=== PATIENT | male | born 1930 | race Caucasian/White ===

== ENCOUNTER → 2016-10-05 | Outpatient (REF) | payer MEDICARE ==
[2016-10-05 19:13] LABS: TOTAL PROTEIN 7.3 GM/DL (6.4-8.2)
[2016-10-09 13:09] LABS: ALBUMIN 3.33 GM/DL (3.29-5.55); ALBUMIN % 45.6 % (55.8-66.1); GAMMA GLOBULIN % 19.6 % (11.1-18.8)
== END ==
LOC: M LAB REF 17:27
PROVIDERS: ATTEND Nurse Practitioner Adult Health
DX: D47.2 Monoclonal gammopathy (principal)

== ENCOUNTER → 2017-03-12 | Outpatient (REF) | payer MEDICARE | LOC: M LAB REF 11:16 | PROVIDERS: ATTEND Nurse Practitioner Adult Health | DX: D47.2 Monoclonal gammopathy (principal) ==

== ENCOUNTER → 2017-05-17 | Outpatient (REF) | payer MEDICARE ==
[2017-05-17 19:37] LABS: FERRITIN 43 NG/ML (26-388); PERCENT SATURATION 9.7 % (19.7-50.0); TOTAL IRON BINDING CAPACITY 321 UG/DL (250-450); TOTAL PROTEIN 7.8 GM/DL (6.4-8.2)
[2017-05-18 11:29] LABS: PRETREATED FOLATE FOR RBCFOL 13.4 NG/ML
[2017-05-22 12:36] LABS: ALBUMIN 3.49 GM/DL (3.29-5.55); ALBUMIN % 44.7 % (55.8-66.1); GAMMA GLOBULIN % 21.2 % (11.1-18.8)
== END ==
LOC: M LAB REF 17:21
PROVIDERS: ATTEND Nurse Practitioner Adult Health
DX: D47.2 Monoclonal gammopathy (principal); N18.9 Chronic kidney disease, unspecified; D63.1 Anemia in chronic kidney disease

== ENCOUNTER 2017-07-19 06:55 | Day surgery (SDC) | payer MEDICARE ==
[2017-07-19] MEDS: NS 1,000 ML IV (07:30)
[2017-07-19] MEDS ORDERED: PROPOFOL 200 MG/20 ML VIAL As Ordered (07:44)
[2017-07-19] MEDS ORDERED: LIDOCAINE 2% INJ 100 MG/5 ML SDV (FOR ANES.) As Ordered (07:45)
== END 2017-07-19 08:53 | disposition home or self-care (01) ==
LOC: M OPP 06:55
DX: K22.2 Esophageal obstruction (principal); K44.9 Diaphragmatic hernia without obstruction or gangrene; K25.9 Gastric ulcer, unspecified as acute or chronic, without hemorrhage or perforation; I48.91 Unspecified atrial fibrillation; I10 Essential (primary) hypertension; E78.5 Hyperlipidemia, unspecified; K21.9 Gastro-esophageal reflux disease without esophagitis; D64.9 Anemia, unspecified; M19.90 Unspecified osteoarthritis, unspecified site; M54.9 Dorsalgia, unspecified; R06.02 Shortness of breath; M81.0 Age-related osteoporosis without current pathological fracture; Z79.82 Long term (current) use of aspirin; Z79.899 Other long term (current) drug therapy; Z96.652 Presence of left artificial knee joint; Z95.0 Presence of cardiac pacemaker; Z87.891 Personal history of nicotine dependence
CPT/HCPCS: 43249

== ENCOUNTER → 2017-10-23 | Outpatient (CLI) | payer MEDICARE ==
[2017-10-26 00:07] LABS: QUANTIFERON GOLD TB Negative (Negative); TB Test (QFT) Antigen 0.03 IU/mL (.); TB Test (QFT) Antigen Minus Ni <0.01 IU/mL (.); TB Test (QFT) Mitogen >10.00 IU/mL (.); TB Test (QFT) Nil 0.04 IU/mL (.)
[2017-10-27 00:07] LABS: ANCA-ATYPICAL <1:20 titer (Neg:<1:20); ASPERGILLUS FLAVUS ABY Negative (Neg:<1:1); ASPERGILLUS FUMIGATUS ABY Negative (Neg:<1:1); ASPERGILLUS NIGER ABY Negative (Neg:<1:1); CYTOPLASMIC NEUTROP AB ANCA-C <1:20 titer (Neg:<1:20); PERINUCLEAR AB ANCA-P <1:20 titer (Neg:<1:20)
== END ==
LOC: M SMT 09:58
DX: R91.8 Other nonspecific abnormal finding of lung field (principal)
CPT/HCPCS: 86606

== ENCOUNTER 2017-11-18 07:39 | Inpatient (IN) | payer MEDICARE ==
[2017-11-18 08:18] LABS: BASO # 0.1 10^3/uL (0.0-0.2); BASO % 0.5 % (0.0-1.0); EOS # 0.1 10^3/uL (0.0-0.50); EOS % 1.1 % (0.0-3.0); HEMATOCRIT 23.4 % (42.0-52.0); HEMOGLOBIN 7.4 g/dl (13.5-17.5); IMMATURE GRANULOCYTE % 0.5 % (0-3.0); LYMPH # 1.2 10^3/uL (1.5-4.5); LYMPH % 10.6 % (24.0-44.0); MEAN CORPUSCULAR HEMOGLOBIN 27.4 pg (27.0-33.0); MEAN CORPUSCULAR HGB CONC 31.6 g/dl (32.0-36.5); MEAN CORPUSCULAR VOLUME 86.7 fl (80.0-96.0); MONO # 1.1 10^3/uL (0.0-0.8); MONO % 10.2 % (0.0-5.0); NEUTROPHILS # 8.5 10^3/uL (1.8-7.7); NEUTROPHILS % 77.1 % (36.0-66.0); PLATELET COUNT, AUTOMATED 293 10^3/uL (150-450); RED CELL DISTRIBUTION WIDTH 16.4 % (11.5-14.5)
[2017-11-18 08:29] LABS: INR 3.61; PROTHROMBIN TIME 37.8 SECONDS (12.4-14.5)
[2017-11-18 08:30] LABS: PARTIAL THROMBOPLASTIN TIME 48.4 SECONDS (26.8-37.9)
[2017-11-18] MEDS: NS 1,000 ML IV ×2 (08:31→18:05)
[2017-11-18 08:39] LABS: ALBUMIN 2.5 GM/DL (3.2-5.2); ALBUMIN/GLOBULIN RATIO 0.58 (1.00-1.93); ALKALINE PHOSPHATASE 76 U/L (45-117); ALT/SGPT 14 U/L (12-78); ANION GAP 8 MEQ/L (8-16); AST/SGOT 18 U/L (7-37); BILIRUBIN,DIRECT < 0.1 MG/DL (0.0-0.2); BILIRUBIN,TOTAL 0.3 MG/DL (0.2-1.0); BLOOD UREA NITROGEN 102 MG/DL (7-18); CALCIUM LEVEL 8.2 MG/DL (8.8-10.2); CARBON DIOXIDE LEVEL 23 MEQ/L (21-32); CHLORIDE LEVEL 111 MEQ/L (98-107); CK-MB VALUE MASS 2.7 NG/ML (<3.6); CPK CREATINE PHOSPHOKINASE 55 U/L (39-308); CREATININE FOR GFR 1.64 MG/DL (0.70-1.30); GLOMERULAR FILTRATION RATE 42.6 (>35); GLUCOSE, FASTING 99 MG/DL (70-100); LIPASE 238 U/L (73-393); SODIUM LEVEL 142 MEQ/L (136-145); TOTAL PROTEIN 6.8 GM/DL (6.4-8.2); TROPONIN I < 0.02 NG/ML (< 0.10)
[2017-11-18 08:42] LABS: POTASSIUM SERUM 5.7 MEQ/L (3.5-5.1)
[2017-11-18] MEDS: PANTOPRAZOLE 40MG INJ (PROTONIX) (C9113) IV (08:42)
[2017-11-18 09:35] LABS: RETIC HEMOGLOBIN EQUIVALENT 28.6 pg (24-36); RETICULOCYTE # 56.2 10^9/L (17-77); RETICULOCYTE % 2.2 % (0.5-1.5)
[2017-11-18 09:43] LABS: SLIDE REVIEW Report; SOURCE PERIPHERAL SMEAR
[2017-11-18 09:44] LABS: REASON FOR REVIEW ANEMIA / RBC MORPH
[2017-11-18 09:46] LABS: IRON (FE) 35 UG/DL (65-175); PERCENT SATURATION 13.6 % (19.7-50.0); TOTAL IRON BINDING CAPACITY 257 UG/DL (250-450)
[2017-11-18 09:46] LABS: FERRITIN 64 NG/ML (26-388)
[2017-11-18] MEDS: PANTOPRAZOLE SODIUM 40 MG in D5W 50 ML IV ×2 (10:19→14:30)
[2017-11-18 12:15] LABS: TYPE AND SCREEN 1
[2017-11-18] MEDS: SUCRALFATE SUSP 1GM/10ML UD PO ×3 (12:27→23:08)
[2017-11-18] MEDS ORDERED: FUROSEMIDE 20 MG/2 ML VIAL (J1940) IV ×2 (14:00→17:00)
[2017-11-18] MEDS ORDERED: GLUCAGON FOR INJ 1 MG VIAL (J1610) SC (15:00)
[2017-11-18] MEDS ORDERED: DEXTROSE 50% 50 ML SYRINGE IV (15:00)
[2017-11-18] MEDS ORDERED: GLUCOSE 4 GM CHEW TABLET PO (15:00)
[2017-11-18 15:04] LABS: IMMEDIATE SPIN CROSSMATCH 1 2
[2017-11-18 15:16] LABS: HEMATOCRIT 20.2 % (42.0-52.0)
[2017-11-18 15:19] LABS: HEMOGLOBIN 6.5 g/dl (13.5-17.5)
[2017-11-18] MEDS ORDERED: PHYTONADIONE 10MG/ML INJECTION (J3430) SC (16:00)
[2017-11-18] MEDS: SOD POLYSTYRENE SULFONATE SUSP 15 GM/60 ML UD PO (16:00)
[2017-11-18] MEDS: PHYTONADIONE INJection 10 MG in NS 50 ML IV (16:34)
[2017-11-18] MEDS: OCTREOTIDE ACETATE 100 MCG/ML VIAL (J2354) IV ×2 (17:14→23:08)
[2017-11-18] MEDS: CALCIUM GLUCONATE 1,000 MG in D5W MINI-BAG PLUS 100 ML IV (17:14)
[2017-11-18 18:54] LABS: BEDSIDE GLUCOSE 160 MG/DL (83-110)
[2017-11-18 20:47] LABS: INR 1.74; PROTHROMBIN TIME 20.9 SECONDS (12.4-14.5)
[2017-11-18 21:06] LABS: ANION GAP 10 MEQ/L (8-16); BLOOD UREA NITROGEN 87 MG/DL (7-18); CALCIUM LEVEL 8.5 MG/DL (8.8-10.2); CARBON DIOXIDE LEVEL 20 MEQ/L (21-32); CHLORIDE LEVEL 116 MEQ/L (98-107); CREATININE FOR GFR 1.43 MG/DL (0.70-1.30); GLOMERULAR FILTRATION RATE 49.9 (>35); GLUCOSE, FASTING 133 MG/DL (70-100); POTASSIUM SERUM 5.1 MEQ/L (3.5-5.1); SODIUM LEVEL 146 MEQ/L (136-145)
[2017-11-18 22:57] LABS: IMMEDIATE SPIN CROSSMATCH 1 2
[2017-11-18 23:29] LABS: BEDSIDE GLUCOSE 144 MG/DL (83-110)
[2017-11-19] MEDS: PANTOPRAZOLE SODIUM 40 MG in D5W 50 ML IV ×5 (00:29→19:54)
[2017-11-19 01:37] LABS: HEMATOCRIT 22.1 % (42.0-52.0); HEMOGLOBIN 7.3 g/dl (13.5-17.5)
[2017-11-19 01:48] LABS: INR 1.56; PROTHROMBIN TIME 19.1 SECONDS (12.4-14.5)
[2017-11-19 01:49] LABS: PARTIAL THROMBOPLASTIN TIME 33.9 SECONDS (26.8-37.9)
[2017-11-19] MEDS: NS 1,000 ML IV (03:49)
[2017-11-19] MEDS: OCTREOTIDE ACETATE 100 MCG/ML VIAL (J2354) IV ×4 (05:15→22:58)
[2017-11-19] MEDS: SUCRALFATE SUSP 1GM/10ML UD PO ×3 (05:15→17:50)
[2017-11-19] MEDS ORDERED: PHYTONADIONE 10MG/ML INJECTION (J3430) As Ordered (06:18)
[2017-11-19] MEDS: PHYTONADIONE 10MG/ML INJECTION (J3430) SC (06:31)
[2017-11-19 06:44] LABS: HEMATOCRIT 22.2 % (42.0-52.0); HEMOGLOBIN 7.3 g/dl (13.5-17.5); MEAN CORPUSCULAR HEMOGLOBIN 28.4 pg (27.0-33.0); MEAN CORPUSCULAR HGB CONC 32.9 g/dl (32.0-36.5); MEAN CORPUSCULAR VOLUME 86.4 fl (80.0-96.0); PLATELET COUNT, AUTOMATED 177 10^3/uL (150-450); RED BLOOD COUNT 2.57 10^6/uL (4.30-6.10); WHITE BLOOD COUNT 11.4 10^3/uL (4.0-10.0)
[2017-11-19 06:49] LABS: INR 1.43; PROTHROMBIN TIME 17.8 SECONDS (12.4-14.5)
[2017-11-19 07:04] LABS: ANION GAP 9 MEQ/L (8-16); BLOOD UREA NITROGEN 69 MG/DL (7-18); CALCIUM LEVEL 7.6 MG/DL (8.8-10.2); CARBON DIOXIDE LEVEL 19 MEQ/L (21-32); CHLORIDE LEVEL 120 MEQ/L (98-107); CREATININE FOR GFR 1.35 MG/DL (0.70-1.30); GLOMERULAR FILTRATION RATE 53.3 (>35); GLUCOSE, FASTING 142 MG/DL (70-100); POTASSIUM SERUM 4.8 MEQ/L (3.5-5.1); SODIUM LEVEL 148 MEQ/L (136-145)
[2017-11-19] MEDS: NS 0.45% 1,000 ML IV ×2 (11:00→11:57)
[2017-11-19 12:32] LABS: HEMATOCRIT 25.4 % (42.0-52.0); HEMOGLOBIN 8.3 g/dl (13.5-17.5)
[2017-11-19 13:36] LABS: BEDSIDE GLUCOSE 135 MG/DL (83-110)
[2017-11-19 16:53] LABS: IMMEDIATE SPIN CROSSMATCH 1 2
[2017-11-19] MEDS: CARVedilol 12.5 MG TAB PO (17:51)
[2017-11-19] MEDS: LOSARTAN 50 MG TAB PO (17:51)
[2017-11-19 17:52] LABS: BEDSIDE GLUCOSE 134 MG/DL (83-110)
[2017-11-19] MEDS: D5W/0.45% SODIUM CHLORIDE 1,000 ML IV (17:52)
[2017-11-19] MEDS: SODIUM BICARBONATE 8.4% INJ 50 ML SYRINGE IV (18:20)
[2017-11-19 19:38] LABS: HEMATOCRIT 28.6 % (42.0-52.0); HEMOGLOBIN 9.4 g/dl (13.5-17.5)
[2017-11-19 19:39] LABS: IONIZED CALCIUM 4.4 MG/DL (4.5-5.3)
[2017-11-19 20:02] LABS: ANION GAP 5 MEQ/L (8-16); BLOOD UREA NITROGEN 54 MG/DL (7-18); CALCIUM LEVEL 7.9 MG/DL (8.8-10.2); CARBON DIOXIDE LEVEL 24 MEQ/L (21-32); CHLORIDE LEVEL 118 MEQ/L (98-107); CK-MB VALUE MASS 4.5 NG/ML (<3.6); CPK CREATINE PHOSPHOKINASE 80 U/L (39-308); GLOMERULAR FILTRATION RATE 55.7 (>35); GLUCOSE, FASTING 169 MG/DL (70-100); MB/CK RELATIVE INDEX 5.62 (< OR =4); NT-PRO BNP 8670 PG/ML (<450); POTASSIUM SERUM 4.5 MEQ/L (3.5-5.1); SODIUM LEVEL 147 MEQ/L (136-145); TROPONIN I 0.02 NG/ML (< 0.10)
[2017-11-19 20:11] LABS: INR 1.26
[2017-11-19] MEDS ORDERED: LOSARTAN 50 MG TAB PO (21:00)
[2017-11-19] MEDS ORDERED: CARVedilol 12.5 MG TAB PO (21:00)
[2017-11-20 00:06] LABS: IONIZED CALCIUM 4.4 MG/DL (4.5-5.3)
[2017-11-20 00:15] LABS: BEDSIDE GLUCOSE 184 MG/DL (83-110)
[2017-11-20 00:16] LABS: HEMATOCRIT 27.6 % (42.0-52.0); HEMOGLOBIN 9.1 g/dl (13.5-17.5)
[2017-11-20 00:34] LABS: ANION GAP 7 MEQ/L (8-16); BLOOD UREA NITROGEN 49 MG/DL (7-18); CALCIUM LEVEL 7.5 MG/DL (8.8-10.2); CARBON DIOXIDE LEVEL 21 MEQ/L (21-32); CHLORIDE LEVEL 119 MEQ/L (98-107); CREATININE FOR GFR 1.22 MG/DL (0.70-1.30); GLUCOSE, FASTING 173 MG/DL (70-100); POTASSIUM SERUM 4.1 MEQ/L (3.5-5.1); SODIUM LEVEL 147 MEQ/L (136-145)
[2017-11-20] MEDS: PANTOPRAZOLE SODIUM 40 MG in D5W 50 ML IV ×5 (01:30→20:35)
[2017-11-20] MEDS: D5W/0.45% SODIUM CHLORIDE 1,000 ML IV (03:49)
[2017-11-20 05:32] LABS: HEMATOCRIT 27.6 % (42.0-52.0); MEAN CORPUSCULAR HEMOGLOBIN 29.2 pg (27.0-33.0); MEAN CORPUSCULAR HGB CONC 32.6 g/dl (32.0-36.5); MEAN CORPUSCULAR VOLUME 89.6 fl (80.0-96.0); PLATELET COUNT, AUTOMATED 170 10^3/uL (150-450); RED BLOOD COUNT 3.08 10^6/uL (4.30-6.10); RED CELL DISTRIBUTION WIDTH 16.1 % (11.5-14.5); WHITE BLOOD COUNT 10.7 10^3/uL (4.0-10.0)
[2017-11-20] MEDS: OCTREOTIDE ACETATE 100 MCG/ML VIAL (J2354) IV ×4 (05:48→23:31)
[2017-11-20] MEDS: SUCRALFATE SUSP 1GM/10ML UD PO ×5 (05:48→23:31)
[2017-11-20 05:51] LABS: ANION GAP 6 MEQ/L (8-16); BLOOD UREA NITROGEN 42 MG/DL (7-18); CALCIUM LEVEL 7.4 MG/DL (8.8-10.2); CARBON DIOXIDE LEVEL 22 MEQ/L (21-32); CHLORIDE LEVEL 119 MEQ/L (98-107); CREATININE FOR GFR 1.18 MG/DL (0.70-1.30); GLOMERULAR FILTRATION RATE > 60.0 (>35); GLUCOSE, FASTING 160 MG/DL (70-100); POTASSIUM SERUM 3.9 MEQ/L (3.5-5.1); SODIUM LEVEL 147 MEQ/L (136-145)
[2017-11-20 06:01] LABS: BEDSIDE GLUCOSE 163 MG/DL (83-110)
[2017-11-20] MEDS: LOSARTAN 50 MG TAB PO ×2 (09:00→20:11)
[2017-11-20] MEDS: CARVedilol 12.5 MG TAB PO ×2 (09:00→20:11)
[2017-11-20 12:58] LABS: BEDSIDE GLUCOSE 140 MG/DL (83-110)
[2017-11-20] MEDS ORDERED: SLF 3 ML SYR IV (17:45)
[2017-11-20 17:59] LABS: BEDSIDE GLUCOSE 126 MG/DL (83-110)
[2017-11-20 20:21] LABS: HEMATOCRIT 28.9 % (42.0-52.0); HEMOGLOBIN 9.2 g/dl (13.5-17.5); MEAN CORPUSCULAR HEMOGLOBIN 29.3 pg (27.0-33.0); MEAN CORPUSCULAR HGB CONC 31.8 g/dl (32.0-36.5); PLATELET COUNT, AUTOMATED 176 10^3/uL (150-450); RED BLOOD COUNT 3.14 10^6/uL (4.30-6.10); RED CELL DISTRIBUTION WIDTH 17.1 % (11.5-14.5); WHITE BLOOD COUNT 13.1 10^3/uL (4.0-10.0)
[2017-11-20] MEDS: SLF 3 ML SYR IV (23:32)
[2017-11-21] MEDS: PANTOPRAZOLE SODIUM 40 MG in D5W 50 ML IV ×5 (01:45→22:07)
[2017-11-21] MEDS: SLF 3 ML SYR IV ×3 (05:04→22:06)
[2017-11-21] MEDS: OCTREOTIDE ACETATE 100 MCG/ML VIAL (J2354) IV ×4 (05:04→23:27)
[2017-11-21] MEDS: SUCRALFATE SUSP 1GM/10ML UD PO ×4 (05:04→23:27)
[2017-11-21 06:17] LABS: HEMATOCRIT 27.5 % (42.0-52.0); HEMOGLOBIN 8.8 g/dl (13.5-17.5); MEAN CORPUSCULAR HEMOGLOBIN 29.4 pg (27.0-33.0); PLATELET COUNT, AUTOMATED 174 10^3/uL (150-450); RED BLOOD COUNT 2.99 10^6/uL (4.30-6.10); RED CELL DISTRIBUTION WIDTH 16.8 % (11.5-14.5); WHITE BLOOD COUNT 13.4 10^3/uL (4.0-10.0)
[2017-11-21 06:31] LABS: ANION GAP 7 MEQ/L (8-16); BLOOD UREA NITROGEN 30 MG/DL (7-18); CALCIUM LEVEL 7.6 MG/DL (8.8-10.2); CARBON DIOXIDE LEVEL 22 MEQ/L (21-32); CHLORIDE LEVEL 118 MEQ/L (98-107); CREATININE FOR GFR 1.18 MG/DL (0.70-1.30); GLOMERULAR FILTRATION RATE > 60.0 (>35); GLUCOSE, FASTING 132 MG/DL (70-100); SODIUM LEVEL 147 MEQ/L (136-145)
[2017-11-21] MEDS: LOSARTAN 50 MG TAB PO ×2 (08:44→22:06)
[2017-11-21] MEDS: CARVedilol 12.5 MG TAB PO ×2 (08:44→22:05)
[2017-11-21 11:57] LABS: BEDSIDE GLUCOSE 103 MG/DL (83-110)
[2017-11-21] MEDS: ACETAMINOPHEN 500 MG TAB PO (17:02)
[2017-11-21 18:25] LABS: BEDSIDE GLUCOSE 128 MG/DL (83-110)
[2017-11-22 01:03] LABS: BEDSIDE GLUCOSE 122 MG/DL (83-110)
[2017-11-22] MEDS: PANTOPRAZOLE SODIUM 40 MG in D5W 50 ML IV ×3 (02:58→11:31)
[2017-11-22 06:12] LABS: HEMOGLOBIN 8.6 g/dl (13.5-17.5); MEAN CORPUSCULAR HEMOGLOBIN 29.5 pg (27.0-33.0); MEAN CORPUSCULAR HGB CONC 31.9 g/dl (32.0-36.5); MEAN CORPUSCULAR VOLUME 92.5 fl (80.0-96.0); PLATELET COUNT, AUTOMATED 164 10^3/uL (150-450); RED BLOOD COUNT 2.92 10^6/uL (4.30-6.10); RED CELL DISTRIBUTION WIDTH 17.5 % (11.5-14.5); WHITE BLOOD COUNT 9.6 10^3/uL (4.0-10.0)
[2017-11-22] MEDS: OCTREOTIDE ACETATE 100 MCG/ML VIAL (J2354) IV ×4 (06:17→22:41)
[2017-11-22] MEDS: SUCRALFATE SUSP 1GM/10ML UD PO ×3 (06:17→17:53)
[2017-11-22] MEDS: SLF 3 ML SYR IV ×3 (06:17→22:41)
[2017-11-22 06:40] LABS: ANION GAP 9 MEQ/L (8-16); BLOOD UREA NITROGEN 30 MG/DL (7-18); CALCIUM LEVEL 7.3 MG/DL (8.8-10.2); CARBON DIOXIDE LEVEL 20 MEQ/L (21-32); CHLORIDE LEVEL 116 MEQ/L (98-107); CREATININE FOR GFR 1.24 MG/DL (0.70-1.30); GLOMERULAR FILTRATION RATE 58.8 (>35); GLUCOSE, FASTING 120 MG/DL (70-100); POTASSIUM SERUM 3.8 MEQ/L (3.5-5.1); SODIUM LEVEL 145 MEQ/L (136-145)
[2017-11-22] MEDS: CARVedilol 12.5 MG TAB PO ×2 (09:00→22:41)
[2017-11-22] MEDS: LOSARTAN 50 MG TAB PO ×2 (09:29→22:40)
[2017-11-22 11:31] LABS: BEDSIDE GLUCOSE 106 MG/DL (83-110)
[2017-11-22] MEDS: hydrALAZINE INJ 20 MG/ML VIAL IV (13:21)
[2017-11-22] MEDS ORDERED: PROPOFOL 200 MG/20 ML VIAL As Ordered ×2 (14:58)
[2017-11-22 17:59] LABS: BEDSIDE GLUCOSE 132 MG/DL (83-110)
[2017-11-22] MEDS: PANTOPRAZOLE 40MG TAB (PROTONIX) PO (22:40)
[2017-11-23] MEDS: SUCRALFATE SUSP 1GM/10ML UD PO ×4 (00:13→18:17)
[2017-11-23] MEDS: ACETAMINOPHEN 500 MG TAB PO (03:26)
[2017-11-23] MEDS: OCTREOTIDE ACETATE 100 MCG/ML VIAL (J2354) IV ×2 (05:58→11:00)
[2017-11-23] MEDS: SLF 3 ML SYR IV ×3 (05:58→20:21)
[2017-11-23 08:11] LABS: HEMOGLOBIN 8.8 g/dl (13.5-17.5); MEAN CORPUSCULAR HEMOGLOBIN 29.6 pg (27.0-33.0); MEAN CORPUSCULAR HGB CONC 31.4 g/dl (32.0-36.5); MEAN CORPUSCULAR VOLUME 94.3 fl (80.0-96.0); PLATELET COUNT, AUTOMATED 191 10^3/uL (150-450); RED BLOOD COUNT 2.97 10^6/uL (4.30-6.10); RED CELL DISTRIBUTION WIDTH 17.8 % (11.5-14.5); WHITE BLOOD COUNT 14.2 10^3/uL (4.0-10.0)
[2017-11-23] MEDS: CARVedilol 12.5 MG TAB PO ×2 (08:51→20:20)
[2017-11-23] MEDS: FUROSEMIDE 40 MG/4 ML VIAL (J1940) IV (08:51)
[2017-11-23] MEDS: PANTOPRAZOLE 40MG TAB (PROTONIX) PO ×2 (08:52→20:20)
[2017-11-23] MEDS: LOSARTAN 50 MG TAB PO ×2 (08:52→20:20)
[2017-11-23 09:14] LABS: ANION GAP 11 MEQ/L (8-16); BLOOD UREA NITROGEN 36 MG/DL (7-18); CALCIUM LEVEL 7.4 MG/DL (8.8-10.2); CARBON DIOXIDE LEVEL 20 MEQ/L (21-32); CHLORIDE LEVEL 115 MEQ/L (98-107); CREATININE FOR GFR 1.38 MG/DL (0.70-1.30); GLUCOSE, FASTING 136 MG/DL (70-100); SODIUM LEVEL 146 MEQ/L (136-145)
[2017-11-23 11:28] LABS: IMMEDIATE SPIN CROSSMATCH 1 1
[2017-11-23] MEDS: FUROSEMIDE 100 MG/10 ML VIAL (J1940) IV (16:37)
[2017-11-24] MEDS: SUCRALFATE SUSP 1GM/10ML UD PO ×3 (00:06→11:59)
[2017-11-24 05:31] LABS: HEMATOCRIT 30.8 % (42.0-52.0); HEMOGLOBIN 10.1 g/dl (13.5-17.5); MEAN CORPUSCULAR HEMOGLOBIN 29.6 pg (27.0-33.0); MEAN CORPUSCULAR HGB CONC 32.8 g/dl (32.0-36.5); MEAN CORPUSCULAR VOLUME 90.3 fl (80.0-96.0); PLATELET COUNT, AUTOMATED 218 10^3/uL (150-450); RED BLOOD COUNT 3.41 10^6/uL (4.30-6.10); RED CELL DISTRIBUTION WIDTH 17.2 % (11.5-14.5); WHITE BLOOD COUNT 12.4 10^3/uL (4.0-10.0)
[2017-11-24] MEDS: SLF 3 ML SYR IV (05:45)
[2017-11-24] MEDS: PANTOPRAZOLE 40MG TAB (PROTONIX) PO (08:05)
[2017-11-24] MEDS: FUROSEMIDE 100 MG/10 ML VIAL (J1940) IV (08:06)
[2017-11-24] MEDS: CARVedilol 12.5 MG TAB PO (09:00)
[2017-11-24] MEDS: LOSARTAN 50 MG TAB PO (09:00)
[2017-11-24 09:11] LABS: BASO % 0.3 % (0.0-1.0); EOS # 0.2 10^3/uL (0.0-0.50); EOS % 1.5 % (0.0-3.0); HEMATOCRIT 30.8 % (42.0-52.0); HEMOGLOBIN 10.1 g/dl (13.5-17.5); IMMATURE GRANULOCYTE % 0.6 % (0-3.0); LYMPH # 0.9 10^3/uL (1.5-4.5); MEAN CORPUSCULAR HGB CONC 32.8 g/dl (32.0-36.5); MEAN CORPUSCULAR VOLUME 91.4 fl (80.0-96.0); MONO # 1.3 10^3/uL (0.0-0.8); MONO % 10.8 % (0.0-5.0); NEUTROPHILS # 9.9 10^3/uL (1.8-7.7); NEUTROPHILS % 79.8 % (36.0-66.0); PLATELET COUNT, AUTOMATED 226 10^3/uL (150-450); RED BLOOD COUNT 3.37 10^6/uL (4.30-6.10); RED CELL DISTRIBUTION WIDTH 17.2 % (11.5-14.5); WHITE BLOOD COUNT 12.4 10^3/uL (4.0-10.0)
[2017-11-24 09:28] LABS: ANION GAP 9 MEQ/L (8-16); BLOOD UREA NITROGEN 40 MG/DL (7-18); CALCIUM LEVEL 7.3 MG/DL (8.8-10.2); CARBON DIOXIDE LEVEL 21 MEQ/L (21-32); CHLORIDE LEVEL 111 MEQ/L (98-107); CREATININE FOR GFR 1.45 MG/DL (0.70-1.30); GLOMERULAR FILTRATION RATE 49.1 (>35); GLUCOSE, FASTING 145 MG/DL (70-100); POTASSIUM SERUM 3.6 MEQ/L (3.5-5.1); SODIUM LEVEL 141 MEQ/L (136-145)
== END 2017-11-24 15:40 | disposition home health service (06) | DRG 813 ==
LOC: M PCU 11-21 01:53 → M MS5PR 11-22 00:04 → M ED 07:39 → M ED INP 09:15 → M ICU 18:07
PROC: 0DJ08ZZ Inspection of Upper Intestinal Tract, Via Natural or Artificial Opening Endoscopic (ICD-10-PCS; principal; 2017-11-22 14:30)
PROC: 30233N1 Transfusion of Nonautologous Red Blood Cells into Peripheral Vein, Percutaneous Approach (ICD-10-PCS; 2017-11-22 14:48)
PROC: 30233K1 Transfusion of Nonautologous Frozen Plasma into Peripheral Vein, Percutaneous Approach (ICD-10-PCS; 2017-11-22 14:48)
DX: D68.32 Hemorrhagic disorder due to extrinsic circulating anticoagulants (principal); J96.01 Acute respiratory failure with hypoxia; D62 Acute posthemorrhagic anemia; N17.9 Acute kidney failure, unspecified; K92.2 Gastrointestinal hemorrhage, unspecified; K25.9 Gastric ulcer, unspecified as acute or chronic, without hemorrhage or perforation; E87.5 Hyperkalemia; I95.1 Orthostatic hypotension; K29.70 Gastritis, unspecified, without bleeding; I48.91 Unspecified atrial fibrillation; F17.290 Nicotine dependence, other tobacco product, uncomplicated; E78.5 Hyperlipidemia, unspecified; I25.10 Atherosclerotic heart disease of native coronary artery without angina pectoris; Z96.653 Presence of artificial knee joint, bilateral; Z98.49 Cataract extraction status, unspecified eye; Z95.0 Presence of cardiac pacemaker; Z79.82 Long term (current) use of aspirin; Z79.01 Long term (current) use of anticoagulants; Z79.899 Other long term (current) drug therapy; Z88.8 Allergy status to other drugs, medicaments and biological substances

== ENCOUNTER → 2018-01-01 | Outpatient (REF) | payer MEDICARE ==
[2018-01-01 20:15] LABS: IMMUNOGLOBULIN G 1460 MG/DL (681-1648); IMMUNOGLOBULIN M 117 MG/DL (40-230); TOTAL PROTEIN 7.4 GM/DL (6.4-8.2)
[2018-01-03 11:55] LABS: ALBUMIN 3.23 GM/DL (3.29-5.55); ALBUMIN % 43.7 % (55.8-66.1); ALPHA-1-GLOBULIN % 6.2 % (2.9-4.9); ALPHA-1-GLOBULINS 0.46 GM/DL (0.17-0.41); ALPHA-2-GLOBULINS 0.97 GM/DL (0.42-0.99); ALPHA-2-GLOBULINS % 13.1 % (7.1-11.8); BETA-1-GLOBULINS 0.51 GM/DL (0.28-0.60); BETA-1-GLOBULINS % 6.9 % (4.7-7.2); BETA-2-GLOBULINS 0.64 GM/DL (0.19-0.55); BETA-2-GLOBULINS % 8.7 % (3.2-6.5); GAMMA GLOBULIN % 21.4 % (11.1-18.8); GAMMA GLOBULINS 1.58 GM/DL (0.65-1.58)
[2018-01-03 13:05] LABS: IMMUNOTYPING SERUM IGA ABNORMAL (NORMAL); IMMUNOTYPING SERUM IGG ABNORMAL (NORMAL); IMMUNOTYPING SERUM KAPPA ABNORMAL (NORMAL)
== END ==
LOC: M LAB REF 17:21
DX: D47.2 Monoclonal gammopathy (principal)
CPT/HCPCS: 84165

== ENCOUNTER → 2018-03-20 | Outpatient (REF) | payer MEDICARE ==
[2018-03-20 14:22] LABS: TOTAL 25(OH) VITAMIN D 41.9 NG/ML (30.0-100.0)
[2018-03-20 14:22] LABS: CALCIUM LEVEL 9.1 MG/DL (8.8-10.2)
== END ==
LOC: M LABDRAW1 11:57
DX: M81.0 Age-related osteoporosis without current pathological fracture (principal); E55.9 Vitamin D deficiency, unspecified
CPT/HCPCS: 82310

== ENCOUNTER → 2018-03-31 | Outpatient (REF) | payer MEDICARE ==
[2018-03-31 22:49] LABS: INFLUENZA A AMPLIFICATION NEGATIVE (NEGATIVE); INFLUENZA B AMPLIFICATION NEGATIVE (NEGATIVE)
== END ==
LOC: M LAB REF 11:22
DX: J11.1 Influenza due to unidentified influenza virus with other respiratory manifestations (principal)
CPT/HCPCS: 87502

== ENCOUNTER → 2018-04-03 | Outpatient (REF) | payer MEDICARE ==
[2018-04-03 13:44] LABS: INR 4.63; PROTHROMBIN TIME 44.9 SECONDS (12.1-14.4)
== END ==
LOC: M LAB REF 12:58
DX: I48.0 Paroxysmal atrial fibrillation (principal); I48.2 Chronic atrial fibrillation
CPT/HCPCS: 85610

== ENCOUNTER → 2018-04-05 | Outpatient (REF) | payer MEDICARE ==
[2018-04-05 20:07] LABS: BANDS 8 % (< 11); LYMPHOCYTES 9 % (16-52); MONOCYTES 6 % (0-8); NEUTROPHILS 77 % (35-75)
[2018-04-05 20:10] LABS: PLATELET ESTIMATE NORMAL (NORMAL)
== END ==
LOC: M LAB REF 17:24
DX: D72.89 Other specified disorders of white blood cells (principal)
CPT/HCPCS: 85007

== ENCOUNTER → 2018-04-30 | Outpatient (REF) | payer MEDICARE ==
[2018-04-30 18:31] LABS: ATYPICAL LYMPH 1 % (0-5); EOSINOPHILS 8 % (0-5); LYMPHOCYTES 7 % (16-52); MONOCYTES 9 % (0-8); NEUTROPHILS 75 % (35-75)
[2018-04-30 18:33] LABS: PLATELET CLUMPS MODERATE AMT; PLATELET ESTIMATE INVALID (NORMAL)
[2018-04-30 18:34] LABS: ANISOCYTOSIS 2+
[2018-04-30 18:35] LABS: HYPOCHROMASIA 1+
[2018-05-01 13:39] LABS: PHOSPHORUS LEVEL 4.1 MG/DL (2.5-4.9)
== END ==
LOC: M LAB REF 17:45
DX: D72.89 Other specified disorders of white blood cells (principal)
CPT/HCPCS: 84100

== ENCOUNTER → 2018-05-16 | Outpatient (REF) | payer MEDICARE ==
[2018-05-16 17:54] LABS: FERRITIN 130 NG/ML (26-388); IRON (FE) 44 UG/DL (65-175); PERCENT SATURATION 17.8 % (19.7-50.0); TOTAL IRON BINDING CAPACITY 247 UG/DL (250-450)
[2018-05-16 18:00] LABS: PTH INTACT 8.1 PG/ML (18.5-88.0)
[2018-05-17 10:59] LABS: TOTAL PROTEIN 7.1 GM/DL (6.4-8.2)
[2018-05-21 12:49] LABS: ALBUMIN 3.07 GM/DL (3.29-5.55); ALBUMIN % 43.3 % (55.8-66.1); ALPHA-1-GLOBULIN % 6.7 % (2.9-4.9); ALPHA-1-GLOBULINS 0.48 GM/DL (0.17-0.41); ALPHA-2-GLOBULINS 0.96 GM/DL (0.42-0.99); ALPHA-2-GLOBULINS % 13.5 % (7.1-11.8); BETA-1-GLOBULINS 0.47 GM/DL (0.28-0.60); BETA-1-GLOBULINS % 6.6 % (4.7-7.2); BETA-2-GLOBULINS 0.61 GM/DL (0.19-0.55); BETA-2-GLOBULINS % 8.6 % (3.2-6.5); GAMMA GLOBULIN % 21.3 % (11.1-18.8)
[2018-05-21 12:50] LABS: GAMMA GLOBULINS 1.51 GM/DL (0.65-1.58)
[2018-05-21 13:46] LABS: IMMUNOTYPING SERUM IGG ABNORMAL (NORMAL); IMMUNOTYPING SERUM KAPPA ABNORMAL (NORMAL); IMMUNOTYPING SERUM LAMBDA ABNORMAL (NORMAL)
== END ==
LOC: M LAB REF 15:55
DX: E83.52 Hypercalcemia (principal); D63.1 Anemia in chronic kidney disease
CPT/HCPCS: 83550

== ENCOUNTER → 2018-05-17 | Outpatient (REF) | payer MEDICARE ==
[2018-05-25 08:06] LABS: VITAMIN D 1,25 DIHYDROXY 61.3 pg/mL (19.9-79.3)
[2018-05-25 08:06] LABS: PTH RELATED PEPTIDE 4.1 pmol/L (.)
== END ==
LOC: M LAB REF 15:52
DX: E83.52 Hypercalcemia (principal)
CPT/HCPCS: 82652

== ENCOUNTER 2018-06-19 08:45 | Inpatient (IN) | payer MEDICARE ==
[~2018-06-19] VITALS: Ht 152.4 cm; Wt 64.0 kg
[~2018-06-19 08:45] MED LIST: ALBU83IN INH; AMLO2.5T3 PO; ASPI1TAB PO; CALC600T57 PO; CARV12.5 PO; CEPH500C PO; COUM1TAB17 PO; ELIQ2.5T PO; INCR1INH INH; IRON27TA2 PO; IRON65TA PO; LASI40TA9 PO; LOSA50TA88 PO; METO50TA7 PO; MULT1TAB10 PO; OMEP20CA3 PO; PANT40TA3 PO; POTA20TA6 PO; PRAV80TA2 PO; PRESCAP PO; PROL60SO SC; SUCR10SS PO; SUCR1TAB56 PO; WARF-18 PO
[2018-06-19] MEDS ORDERED: methylPREDNISolone INJ 125 MG/2 ML VIAL (J2930) IV ONE (09:00)
[2018-06-19] MEDS ORDERED: IPRATROPIUM 0.5MG/ALBUTEROL 2.5MG INH SOL UD 3ML (DUONEB)(J7620) NEB ONE (09:00)
[2018-06-19] MEDS ORDERED: ALBUTEROL SULFATE 2.5 MG/0.5 ML INH NEB SOLN INH ONE (09:00)
[2018-06-19] MEDS ORDERED: ALLO100T (09:09)
[2018-06-19 09:13] LABS: BASO # 0.1 10^3/uL (0.0-0.2); BASO % 0.8 % (0.0-1.0); EOS # 0.2 10^3/uL (0.0-0.50); EOS % 2.6 % (0.0-3.0); HEMATOCRIT 30.4 % (42.0-52.0); HEMOGLOBIN 9.9 g/dl (13.5-17.5); LYMPH # 1.1 10^3/uL (1.5-4.5); LYMPH % 12.3 % (24.0-44.0); MEAN CORPUSCULAR HEMOGLOBIN 31.3 pg (27.0-33.0); MEAN CORPUSCULAR HGB CONC 32.6 g/dl (32.0-36.5); MEAN CORPUSCULAR VOLUME 96.2 fl (80.0-96.0); MONO # 0.9 10^3/uL (0.0-0.8); MONO % 10.2 % (0.0-5.0); NEUTROPHILS # 6.3 10^3/uL (1.8-7.7); NEUTROPHILS % 73.5 % (36.0-66.0); PLATELET COUNT, AUTOMATED 350 10^3/uL (150-450); RED BLOOD COUNT 3.16 10^6/uL (4.30-6.10); WHITE BLOOD COUNT 8.6 10^3/uL (4.0-10.0)
[2018-06-19 09:18] LABS: ABG BASE EXCESS -1.4 (-2.0-2.0); ABG HCO3 22.3 MEQ/L (22.0-26.0); ABG O2 SATURATION 91.2 % (95.0-99.0); ABG PARTIAL PRESSURE CO2 33.8 mmHg (35.0-45.0); ABG PARTIAL PRESSURE O2 61.3 mmHg (75.0-100.0); ABG STANDARD HCO3 23.2 MEQ/L (22.0-26.0); ABG TOTAL CO2 23.4 MEQ/L (23.0-31.0); ABG pH (ARTERIAL) 7.438 UNITS (7.350-7.450)
--- NOTE | 2018-06-19 09:24 | REP ---
Portable chest x-ray: Single view. History: Dyspnea and cough. Comparison study: November 23, 2017. Findings: Bipolar pacemaker remains in place via the left side. EKG electrodes are seen. Moderate cardiomegaly is observed. There is blunting of the left lateral and to a lesser extent right lateral pleural angle unchanged. Right apical pleural thickening is again noted also unchanged. There is some mediastinal shift to the right. Findings are consistent with chronic atelectasis in the right upper lobe. This is unchanged from the comparison CT study of December 17, 2017. The small bilateral pleural effusions are new from that prior CT study. Vascular and interstitial markings are increased diffusely which may reflect interstitial pulmonary edema. There are a few air bronchograms in the left lower lobe. Impression: CHF with interstitial edema and small bilateral pleural effusions. Chronic atelectasis right upper lobe. Pacemaker. Electronically Signed by Jonathon Maravilla MD 06/19/2018 08:27 P
[2018-06-19] MEDS ORDERED: FUROSEMIDE 100 MG/10 ML VIAL (J1940) IV ONE (09:30)
[2018-06-19 09:35] LABS: INFLUENZA A AMPLIFICATION NEGATIVE (NEGATIVE); INFLUENZA B AMPLIFICATION NEGATIVE (NEGATIVE)
[2018-06-19 09:37] LABS: ALBUMIN 2.9 GM/DL (3.2-5.2); ALT/SGPT 10 U/L (12-78); BILIRUBIN,DIRECT 0.2 MG/DL (0.0-0.2); BILIRUBIN,TOTAL 0.6 MG/DL (0.2-1.0); BLOOD UREA NITROGEN 31 MG/DL (7-18); CARBON DIOXIDE LEVEL 27 MEQ/L (21-32); CHLORIDE LEVEL 106 MEQ/L (98-107); CPK CREATINE PHOSPHOKINASE 49 U/L (39-308); CREATININE FOR GFR 1.34 MG/DL (0.70-1.30); GLOMERULAR FILTRATION RATE 53.8 (>35); GLUCOSE, FASTING 95 MG/DL (70-100); MB/CK RELATIVE INDEX 4.69 (< OR =4); NT-PRO BNP 13485 PG/ML (<450); POTASSIUM SERUM 3.7 MEQ/L (3.5-5.1); SODIUM LEVEL 142 MEQ/L (136-145); THYROXINE (T4) 7.1 UG/DL (4.5-12.0); TOTAL PROTEIN 7.8 GM/DL (6.4-8.2); TROPONIN I < 0.02 NG/ML (< 0.10)
[2018-06-19 09:39] LABS: INR 1.22; PROTHROMBIN TIME 15.6 SECONDS (12.1-14.4)
[2018-06-19] MEDS ORDERED: NITROGLYCERIN 2% OINT 1 GM *U/D* PKT TOP ONE (10:15)
[2018-06-19] MEDS ORDERED: amLODIPine 5 MG TAB PO ONE (10:30)
[2018-06-19] MEDS ORDERED: METOPROLOL TART 25 MG TABLET PO ONE (10:30)
[2018-06-19] MEDS ORDERED: LOSARTAN 50 MG TAB PO ONE (10:30)
--- NOTE | 2018-06-19 10:37 | ECGEPIP ---
Stationary ECG Study [facility] - ED Test Date: 2018-06-19 Pat Name: LEIF NGUYEN Department: Room: - Gender: M [employer] Specials: ct : 1930 Requested By: Noemi Guzman Order Number: [id number] Reading MD: Evangelina Saldaña Measurements Intervals [place] Rate: 60 P: NV: 0 QRS: -57 QRSD: 212 T: 116 QT: 516 QTc: 516 Interpretive Statements ELECTRONIC VENTRICULAR PACEMAKER ABNORMAL RHYTHM ECG Electronically Signed On 06-19-2018 10:37:23 EST by Evangelina Saldaña
[2018-06-19] MEDS ORDERED: ALBU83IN INH ×2 (11:14)
[2018-06-19] MEDS ORDERED: PROL60SO SC (11:14)
[2018-06-19] MEDS ORDERED: OMEP20CA3 PO (11:14)
[2018-06-19] MEDS ORDERED: PRAV80TA PO (11:14)
[2018-06-19] MEDS ORDERED: FERR325T3 PO (11:14)
[2018-06-19] MEDS ORDERED: FURO40TA2 PO (11:14)
[2018-06-19] MEDS ORDERED: ALLO100T PO (11:14)
[2018-06-19] MEDS ORDERED: AMLO25TA PO (11:14)
[2018-06-19] MEDS ORDERED: METO1TAB32 PO (11:14)
[2018-06-19] MEDS ORDERED: ELIQ2.5T PO (11:14)
[2018-06-19] MEDS ORDERED: IRON27TA2 PO (11:14)
[2018-06-19] MEDS ORDERED: PRESCAP6 PO (11:14)
[2018-06-19] MEDS ORDERED: CEPH500C PO (11:14)
[2018-06-19] MEDS ORDERED: BISACODYL 5 MG TAB PO PRN (11:45)
[2018-06-19] MEDS ORDERED: ONDANSETRON 4MG/2ML VIAL (J2405) IV PRN (11:45)
[2018-06-19] MEDS: amLODIPine 5 MG TAB PO SCH ×2 (12:29→20:54)
[2018-06-19] MEDS: METOPROLOL SUCC *XL* 25MG TAB (TopROL *XL*) PO SCH ×2 (12:30→20:54)
[2018-06-19] MEDS: ALLOPURINOL 100 MG TAB PO SCH (14:47)
[2018-06-19] MEDS: SENOKOT S TAB PO SCH ×2 (14:47→20:53)
[2018-06-19] MEDS: APIXABAN 2.5 MG TAB (ELIQUIS) PO SCH ×2 (14:47→20:54)
[2018-06-19] MEDS: **hydrALAZINE HCL** 25 MG TAB PO SCH ×2 (14:48→18:00)
[2018-06-19] MEDS: OMEPRAZOLE 20 MG CAP PO SCH ×2 (14:48→20:54)
[2018-06-19 15:30] VITALS: BP 148/78
[2018-06-19] MEDS: ALBUTEROL SULFATE 2.5 MG/0.5 ML INH NEB SOLN NEB SCH ×2 (15:42→23:42)
[2018-06-19] MEDS: FUROSEMIDE 40 MG/4 ML VIAL (J1940) IV SCH (18:03)
[2018-06-19 20:00] VITALS: BP 176/81
[2018-06-19] MEDS: PRAVASTATIN 20 MG TAB PO SCH (20:53)
--- NOTE | 2018-06-19 21:01 | ECHO ---
DATE OF PROCEDURE: 06/19/2018 REFERRING PHYSICIAN: Jennifer Mejia MD PRIMARY WORLD TRAVEL COUNSELOR: Willis Vogt MD PATIENT LOCATION: Emergency room, room 1. REASON FOR ECHOCARDIOGRAM: Shortness of breath, congestive heart failure. 2D MEASUREMENTS: IVS: 1.3 cm LV: 4.9 cm LVPW: 1.4 cm LA: 4.5 cm Aorta: 3.0 cm IVC: 2.4 cm DOPPLER MEASUREMENTS: Peak velocity across the aortic valve: 2.6 m/s Peak velocity across the LVOT: 0.74 m/s Mitral E: 1.6, Mitral A: 0.67, with a ratio of 2.3 Maximum tricuspid valve velocity: 4.0 m/s 2D COMMENTS: 1. Mildly increased left ventricular wall thickness with normal left ventricular size and low normal global left ventricular systolic function. The estimated left ventricular systolic ejection fraction is 50 to 55%. 2. Mildly enlarged left atrium. The right atrium also appeared to be enlarged. Normal right ventricle. 3. The atrial septum appeared to be normal without evidence of defect or shunt. 4. Normal aortic root. 5. No pericardial effusion seen. Pleural effusion was noted. 6. Mildly calcified aortic valve with mildly restricted leaflet excursion. Moderately calcified mitral annulus with normal anterior mitral valve leaflet motion. Normal tricuspid valve. The pulmonic valve and proximal pulmonary artery branches were not well visualized. 7. The inferior vena cava was dilated, central venous pressure is most likely elevated. DOPPLER: It detects mild aortic regurgitation, mild mitral regurgitation, and moderately severe tricuspid regurgitation as well as mild pulmonic regurgitation. The calculated pulmonary artery systolic pressure varies between 65 to 75 mmHg. IMPRESSION: 1. Low normal global left ventricular systolic function with mild concentric left ventricular hypertrophy. 2. Mildly dilated left atrium with mitral annulus calcification and mild mitral regurgitation. 3. Moderately severe tricuspid regurgitation with severe pulmonary hypertension and dilated right atrium. 4. Mild pulmonic regurgitation. 5. Not mentioned above, pacemaker wire artifact was noted. 6. There are features of elevated central venous pressure, the inferior vena cava/IVC is enlarged. 7. No pericardial effusion seen. Pleural effusion was noted. 8. Aortic valve sclerosis with mild aortic stenosis and mild aortic regurgitation. MTDD
[2018-06-19 23:59] VITALS: BP 167/72
[2018-06-20] MEDS: **hydrALAZINE HCL** 25 MG TAB PO SCH ×5 (00:27→23:23)
[2018-06-20] MEDS: FUROSEMIDE 40 MG/4 ML VIAL (J1940) IV SCH ×4 (00:28→23:23)
[2018-06-20 04:00] VITALS: BP 140/58
[2018-06-20 05:56] LABS: HEMOGLOBIN 9.5 g/dl (13.5-17.5); LYMPH # 0.7 10^3/uL (1.5-4.5); LYMPH % 8.2 % (24.0-44.0); MEAN CORPUSCULAR HEMOGLOBIN 29.8 pg (27.0-33.0); MEAN CORPUSCULAR HGB CONC 31.7 g/dl (32.0-36.5); MONO # 0.6 10^3/uL (0.0-0.8); MONO % 7.2 % (0.0-5.0); NEUTROPHILS # 6.9 10^3/uL (1.8-7.7); PLATELET COUNT, AUTOMATED 341 10^3/uL (150-450); RED BLOOD COUNT 3.19 10^6/uL (4.30-6.10); WHITE BLOOD COUNT 8.2 10^3/uL (4.0-10.0)
[2018-06-20 06:19] LABS: CREATININE FOR GFR 1.57 MG/DL (0.70-1.30); GLOMERULAR FILTRATION RATE 44.8 (>35); POTASSIUM SERUM 3.8 MEQ/L (3.5-5.1)
[2018-06-20] MEDS: ALBUTEROL SULFATE 2.5 MG/0.5 ML INH NEB SOLN NEB SCH ×2 (07:11→15:13)
--- NOTE | 2018-06-20 07:33 | HPE ---
DATE OF ADMISSION: 06/19/2018 PRIMARY CARE PROVIDER: Wanda Thomas CHIEF COMPLAINT: Gradually increasing shortness of breath for 2 weeks which became very bad since last night. PAST MEDICAL HISTORY: Includes: Diastolic congestive heart failure. 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 Has a pacemaker in place. Esophageal stricture and dysphagia status post dilatation in July of 2017. History of gastrointestinal (GI) bleed from acute gastritis and gastric ulcers on the background of being on Coumadin in October of 2017. Lung mass followed by Dr. Madsen. Hypertension. Hyperlipidemia. Gout. History of rheumatoid arthritis. Not on any medications now but used to be on Remicade. Coronary artery disease. Iron deficiency anemia. Anemia of chronic disease. 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 Chronic kidney disease (CKD) stage III. Moderate hiatal hernia. Osteoarthritis. HISTORY OF PRESENT ILLNESS: This is an 87-year-old male from home who presented with the above past medical history presented to the hospital with the chief complaint of increasing shortness of breath over the past two weeks. This became really bad yesterday prompting him to come to the emergency room. As per patient, he had lost a lot of weight when he was on Coumadin as his diet was very restricted. After his Coumadin was changed because of gastrointestinal (GI) bleed back in October 2017 and he was put on Eliquis, he has been trying to improve his diet and he had noticed that he has gained weight, about 10 pounds over the last 1-1/2 months which he thought because he was eating better. He then noticed gradually increasing shortness of breath over the past two weeks along with a productive cough and he was unable to take enough breath so he called the emergency medical services (EMS) at around midnight. On arrival, EMS noted his pulse oximetry to be 75% on room air. He also noted swelling of both of his lower extremities. The patient was immediately brought to the emergency room. In the emergency department (ED), the patient had a chest x-ray done which showed interstitial edema, congestive heart failure pattern. He was extremely hypoxic on room air and he was requiring 50% oxygen through the venturi mask to maintain an oxygen saturation of 92%. He was also noted to be extremely hypertensive with a blood pressure of systolic blood pressures 190s to 200s over 80s and 90s. The patient received intravenous (IV) Lasix and steroids in the emergency room. The patient was then diagnosed with congestive heart failure and the hospitalist service was consulted for admission. PAST SURGICAL HISTORY: Includes: Pacemaker placement. Esophagogastroduodenoscopies (EGDs). Bilateral knee replacement. Cataract surgery. Bilateral toe surgeries for hammertoe. Lens implantation in 2002. SOCIAL HISTORY: The patient smokes one cigarette daily. Does not abuse alcohol or recreational drugs. FAMILY HISTORY: Nothing significant. ALLERGIES: To PROMETHAZINE. REVIEW OF SYSTEMS: The patient denies any fevers or chills. Denied any chest pain. Denied any abdominal pain, any nausea, vomiting or diarrhea. The patient complained of shortness of breath, a productive cough and bilateral leg swelling. PHYSICAL EXAMINATION: Vital Signs: Temperature 98.7, pulse 68, blood pressure 192/82, pulse oximetry 93% with 50% oxygen through venturi mask. General: Patient awake, alert, and oriented times three. Sitting up in bed with mild distress and difficulty in completing full sentences but says that he is able to talk a little bit more. HEENT: Normocephalic, atraumatic. Moist mucous membranes. Anicteric eyes. Chest: Bilateral diffuse crackles. There is kyphoscoliosis present. Cardiovascular: S1, S2, regular. There is a short systolic murmur present. No rub or gallop. Abdomen: Soft, nontender, bowel sounds normal. Extremities: 1 to 2+ bipedal edema. CHEST X-RAY: Shows interstitial edema, small bilateral pleural effusion in congestive heart failure (CHF) pattern. There is chronic atelectasis of the right upper lobe. Pacemaker is present. There are few air bronchial rubs in the left lower lobe. Laboratory data: WBC 8.6, hemoglobin 9.9, platelets 350. Sodium 142, potassium 3.7, chloride 106, bicarbonate 27, BUN 31, creatinine 1.34, glucose 91. Lactate 1.1. Calcium 9. Liver function tests are normal. Cardiac enzymes are negative. ProBNP is 13,485. Thyroid-stimulating hormone (TSH) is normal. HOME MEDICATIONS: - albuterol sulfate nebulizer solution every 4 hours as needed shortness of breath - allopurinol 200 mg by mouth daily - amlodipine 2.5 mg by mouth twice a day - Eliquis 2.5 mg by mouth twice a day - cephalexin 500 mg by mouth in the morning - ferrous sulfate 325 mg by mouth twice a day - Lasix 40 mg by mouth daily - metoprolol succinate 25 mg by mouth twice a day - omeprazole 20 mg by mouth twice a day - pravastatin 80 mg by mouth at bedtime - PreserVision AREDs 1 capsule by mouth twice a day - Prolia 50 mg subcutaneously as directed ASSESSMENT: This is an 87-year-old male with a past medical history of diastolic congestive heart failure, atrial fibrillation with a tachybrady syndrome has a pacemaker in place, upper gastrointestinal bleed due to gastric ulcer from acute gastritis and Coumadin toxicity in October 2017. Hiatal hernia, hypertension, dyslipidemia, gout, history of rheumatoid arthritis, coronary artery disease, a lung mass followed by Dr. Madsen presented to the emergency room with two weeks history of gradually increasing shortness of breath and leg swelling and was found to have acute congestive heart failure. The patient had an echocardiogram done in the emergency room which showed severe pulmonary hypertension with right heart failure and cor pulmonale as well as mildly reduced systolic function with an ejection fraction (EF) of 50% to 55% and mild concentric left ventricular hypertrophy. There was also mild mitral regurgitation, severe tricuspid regurgitation. The patient was admitted for acute systolic and diastolic congestive heart failure. PLAN: Congestive heart failure. As per record, patient possibly has both diastolic as well as systolic congestive heart failure (CHF), the patient also has acute right heart failure from severe pulmonary hypertension and cor pulmonale, will place the patient on no added salt diet, fluid restriction 1.5 mL, will also give Lasix 40 mg IV every 6 hours with potassium supplementation as required. Severe pulmonary hypertension with right sided heart failure. Will continue with diuresis. Acute hypoxic respiratory failure. This is due to CHF exacerbation. Will continue with oxygen supplementation and diuresis. Chronic kidney disease (CKD) stage III. Creatinine is baseline. Will continue to monitor creatinine in view of the diuresis that we are going to do. 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 Has a pacemaker in place. At present, the patient is in paced rhythm. Hypertension. The patient's blood pressure is uncontrolled at this point because of CHF exacerbation. Will increase blood pressure medications. Will increase amlodipine dosage. Will also start the patient on hydralazine and continue on metoprolol. Hyperlipidemia. Will continue with the Pravachol. Hiatal hernia. Will continue with omeprazole. Anemia of chronic disease and iron deficiency anemia. Will continue with ferrous sulfate. Gout. Will continue with allopurinol. Deep vein thrombosis (DVT) prophylaxis. The patient is on Eliquis. IgG kappa monoclonal gammopathy. The patient follows with oncology. Right lung mass and right upper lobe chronic atelectasis. The patient follows with Dr. Madsen. ANITA
[2018-06-20 08:00] VITALS: BP 152/60
[2018-06-20] MEDS: SENOKOT S TAB PO SCH ×2 (08:49→20:00)
[2018-06-20] MEDS: OMEPRAZOLE 20 MG CAP PO SCH ×2 (08:49→20:00)
[2018-06-20] MEDS: ALLOPURINOL 100 MG TAB PO SCH (08:49)
[2018-06-20] MEDS: amLODIPine 5 MG TAB PO SCH ×2 (08:49→20:02)
[2018-06-20] MEDS: APIXABAN 2.5 MG TAB (ELIQUIS) PO SCH ×2 (08:49→20:01)
[2018-06-20] MEDS: METOPROLOL SUCC *XL* 25MG TAB (TopROL *XL*) PO SCH ×2 (08:49→20:01)
[2018-06-20 12:00] VITALS: BP 167/71
[2018-06-20 16:00] VITALS: BP 162/71
[2018-06-20 20:00] VITALS: BP 155/69
[2018-06-20] MEDS: PRAVASTATIN 20 MG TAB PO SCH (20:00)
[2018-06-20 23:00] VITALS: BP 168/64
[2018-06-21] VITALS (7 sets, daily range): BP systolic 139–180; BP diastolic 63–84
[2018-06-21] MEDS: ALBUTEROL SULFATE 2.5 MG/0.5 ML INH NEB SOLN NEB SCH ×3 (00:54→15:35)
[2018-06-21] MEDS: **hydrALAZINE HCL** 25 MG TAB PO SCH ×4 (05:36→23:46)
[2018-06-21 08:00] LABS: HEMATOCRIT 29.2 % (42.0-52.0); HEMOGLOBIN 9.3 g/dl (13.5-17.5); MEAN CORPUSCULAR HEMOGLOBIN 29.6 pg (27.0-33.0); MEAN CORPUSCULAR HGB CONC 31.8 g/dl (32.0-36.5); PLATELET COUNT, AUTOMATED 360 10^3/uL (150-450); RED BLOOD COUNT 3.14 10^6/uL (4.30-6.10); WHITE BLOOD COUNT 12.1 10^3/uL (4.0-10.0)
[2018-06-21 08:27] LABS: CALCIUM LEVEL 8.9 MG/DL (8.8-10.2); CREATININE FOR GFR 1.72 MG/DL (0.70-1.30); GLOMERULAR FILTRATION RATE 40.3 (>35); POTASSIUM SERUM 3.5 MEQ/L (3.5-5.1)
[2018-06-21] MEDS: SENOKOT S TAB PO SCH ×2 (08:41→20:51)
[2018-06-21] MEDS: amLODIPine 5 MG TAB PO SCH ×2 (08:41→20:50)
[2018-06-21] MEDS: APIXABAN 2.5 MG TAB (ELIQUIS) PO SCH ×2 (08:41→20:41)
[2018-06-21] MEDS: METOPROLOL SUCC *XL* 25MG TAB (TopROL *XL*) PO SCH ×2 (08:41→20:52)
[2018-06-21] MEDS: OMEPRAZOLE 20 MG CAP PO SCH ×2 (08:41→20:41)
[2018-06-21] MEDS: ALLOPURINOL 100 MG TAB PO SCH (08:41)
[2018-06-21] MEDS: FUROSEMIDE 40 MG/4 ML VIAL (J1940) IV SCH (08:42)
[2018-06-21] MEDS: PRAVASTATIN 20 MG TAB PO SCH (20:51)
--- NOTE | 2018-06-21 22:36 | IPNPDOC ---
Text Note Date of Service The patient was seen on 06/20/18. NOTE SUBJECTIVE: SOB is better this am requiring less oxygen . No chest pain , no abdominal pain , no nausea or vomiting or diarrhea, no Fever or chills, though still has coughing. PHYSICAL EXAMINATION: Vital Signs: As below General: Patient awake, alert, and oriented times three. Sitting up in bed in no acute distress HEENT: Normocephalic, atraumatic. Moist mucous membranes. Anicteric eyes. Chest: Bilateral diffuse crackles. There is kyphoscoliosis present. Cardiovascular: S1, S2, regular. There is a short systolic murmur present. No rub or gallop. Abdomen: Soft, nontender, bowel sounds normal. Extremities: 1 to 2+ bipedal edema. 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 Madsen presented to the emergency room with two weeks history of gradually increasing shortness of breath and leg swelling and was found to have acute congestive heart failure. The patient had an echocardiogram done in the emergency room which showed severe pulmonary hypertension with right heart failure and cor pulmonale as well as mildly reduced systolic function with an ejection fraction (EF) of 50% to 55% and mild concentric left ventricular hypertrophy. There was also mild mitral regurgitation, severe tricuspid regurgitation. The patient was admitted for acute systolic and diastolic congestive heart failure. Congestive heart failure. As per Echo patient has both diastolic as well as systolic congestive heart failure (CHF), the patient also has acute right heart failure from severe pulmonary hypertension and cor pulmonale, will place the patient on no added salt diet, fluid restriction 1.5 mL, will also give Lasix 40 mg IV every 6 hours with potassium supplementation as required. Severe pulmonary hypertension with right sided heart failure. Will continue with diuresis. Acute hypoxic respiratory failure. This is due to CHF exacerbation. Will continue with oxygen supplementation and diuresis. Chronic kidney disease (CKD) stage III. Creatinine is baseline. Will continue to monitor creatinine in view of the diuresis that we are going to do. 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 Has a pacemaker in place. At present, the patient is in paced rhythm. Hypertension. The patient's blood pressure is uncontrolled at this point because of CHF exacerbation. Will increase blood pressure medications. Will increase amlodipine dosage. Will also start the patient on hydralazine and continue on metoprolol. Hyperlipidemia. Will continue with the Pravachol. Hiatal hernia. Will continue with omeprazole. Anemia of chronic disease and iron deficiency anemia. Will continue with ferrous sulfate. Gout. Will continue with allopurinol. Deep vein thrombosis (DVT) prophylaxis. The patient is on Eliquis. IgG kappa monoclonal gammopathy. The patient follows with oncology. Right lung mass and right upper lobe chronic atelectasis. The patient follows with Dr. Madsen. VS,Liza, I+O VS, Liza, I+O Laboratory Tests 06/20/18 05:34 Red Blood Count 3.19 L, Mean Corpuscular Volume 94.0, Mean Corpuscular Hemoglobin 29.8, Mean Corpuscular Hemoglobin Concent 31.7 L, Red Cell Di stribution Width 16.8 H, Neutrophils (%) (Auto) 84.0 H, Lymphocytes (%) (Auto) 8.2 L, Monocytes (%) (Auto) 7.2 H, Eosinophils (%) (Auto) 0.0, Basophils (%) (Auto) 0.0, Neutrophils # (Auto) 6.9, Lymphocytes # (Auto) 0.7 L, Monocytes # (Auto) 0.6, Eosinophils # (Auto) 0.0, Basophils # (Auto) 0.0, Calcium Level 9.0 Vital Signs Date Time Temp Pulse Resp B/P (MAP) Pulse Ox O2 Delivery O2 Flow Rate FiO2 06/20/18 12:01 167/71 06/20/18 08:49 58 06/20/18 08:00 97.2 18 95 High Flow Cannula 10.0 06/19/18 16:00 50 I&O- Last 24 Hours up to 6 AM 06/20/18 06:00 Intake Total 150 ml Output Total 1200 ml Balance -1050 ml YOLIS GARCIA MD Jun 20, 2018 12:36
--- NOTE | 2018-06-21 22:37 | IPNPDOC ---
Text Note Date of Service The patient was seen on 06/21/18. NOTE SUBJECTIVE: SOB is better this am requiring less oxygen . No chest pain , no abdominal pain , no nausea or vomiting or diarrhea, no Fever or chills PHYSICAL EXAMINATION: Vital Signs: As below General: Patient awake, alert, and oriented times three. Sitting up in bed in no acute distress HEENT: Normocephalic, atraumatic. Moist mucous membranes. Anicteric eyes. Chest: Bilateral diffuse crackles. There is kyphoscoliosis present. Cardiovascular: S1, S2, regular. There is a short systolic murmur present. No rub or gallop. Abdomen: Soft, nontender, bowel sounds normal. Extremities: 1 to 2+ bipedal edema. 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 Madsen presented to the emergency room with two weeks history of gradually increasing shortness of breath and leg swelling and was found to have acute congestive heart failure. The patient had an echocardiogram done in the emergency room which showed severe pulmonary hypertension with right heart failure and cor pulmonale as well as mildly reduced systolic function with an ejection fraction (EF) of 50% to 55% and mild concentric left ventricular hypertrophy. There was also mild mitral regurgitation, severe tricuspid regurgitation. The patient was admitted for acute systolic and diastolic congestive heart failure. Congestive heart failure. As per Echo patient has both diastolic as well as systolic congestive heart failure (CHF), the patient also has acute right heart failure from severe pulmonary hypertension and cor pulmonale, will place the patient on no added salt diet, fluid restriction 1.5 mL, will also give Lasix 40 mg IV every 6 hours with potassium supplementation as required. Severe pulmonary hypertension with right sided heart failure. Will continue with diuresis. Acute hypoxic respiratory failure. This is due to CHF exacerbation. Will continue with oxygen supplementation and diuresis. Chronic kidney disease (CKD) stage III. Creatinine is baseline. Will continue to monitor creatinine in view of the diuresis that we are going to do. 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 Has a pacemaker in place. At present, the patient is in paced rhythm. Hypertension. The patient's blood pressure is uncontrolled at this point because of CHF exacerbation. Will increase blood pressure medications. Will increase amlodipine dosage. Will also start the patient on hydralazine and continue on metoprolol. Hyperlipidemia. Will continue with the Pravachol. Hiatal hernia. Will continue with omeprazole. Anemia of chronic disease and iron deficiency anemia. Will continue with ferrous sulfate. Gout. Will continue with allopurinol. Deep vein thrombosis (DVT) prophylaxis. The patient is on Eliquis. IgG kappa monoclonal gammopathy. The patient follows with oncology. Right lung mass and right upper lobe chronic atelectasis. The patient follows with Dr. Madsen. VS,Liza, I+O VS, Liza, I+O Laboratory Tests 06/21/18 07:42 Red Blood Count 3.14 L, Mean Corpuscular Volume 93.0, Mean Corpuscular H emoglobin 29.6, Mean Corpuscular Hemoglobin Concent 31.8 L, Red Cell Distribution Width 17.2 H, Calcium Level 8.9 Vital Signs Date Time Temp Pulse Resp B/P (MAP) Pulse Ox O2 Delivery O2 Flow Rate FiO2 06/21/18 20:52 63 147/63 06/21/18 20:00 98.4 20 94 High Flow Cannula 2.0 06/19/18 16:00 50 I&O- Last 24 Hours up to 6 AM 06/21/18 06:00 Intake Total 840 ml Output Total 1150 ml Balance -310 ml YOLIS GARCIA MD Jun 21, 2018 22:37
[2018-06-22] MEDS ORDERED: ACETAMINOPHEN 325 MG TAB PO ONE (02:15)
[2018-06-22] MEDS ORDERED: LIDOCAINE 5% (LIDODERM) PATCH TD ONE (02:15)
[2018-06-22 04:00] VITALS: BP 159/54
[2018-06-22] MEDS: **hydrALAZINE HCL** 25 MG TAB PO SCH ×3 (06:03→17:36)
[2018-06-22 07:11] LABS: BASO % 0.3 % (0.0-1.0); EOS # 0.1 10^3/uL (0.0-0.50); HEMATOCRIT 28.5 % (42.0-52.0); HEMOGLOBIN 9.2 g/dl (13.5-17.5); LYMPH # 1.3 10^3/uL (1.5-4.5); LYMPH % 10.4 % (24.0-44.0); MEAN CORPUSCULAR HEMOGLOBIN 29.7 pg (27.0-33.0); MEAN CORPUSCULAR HGB CONC 32.3 g/dl (32.0-36.5); MEAN CORPUSCULAR VOLUME 91.9 fl (80.0-96.0); MONO # 1.2 10^3/uL (0.0-0.8); MONO % 10.1 % (0.0-5.0); NEUTROPHILS # 9.4 10^3/uL (1.8-7.7); NEUTROPHILS % 77.5 % (36.0-66.0); PLATELET COUNT, AUTOMATED 365 10^3/uL (150-450); WHITE BLOOD COUNT 12.1 10^3/uL (4.0-10.0)
[2018-06-22 07:29] LABS: CALCIUM LEVEL 8.4 MG/DL (8.8-10.2); CREATININE FOR GFR 1.56 MG/DL (0.70-1.30); GLOMERULAR FILTRATION RATE 45.1 (>35); POTASSIUM SERUM 3.1 MEQ/L (3.5-5.1)
[2018-06-22 08:00] VITALS: BP 164/56
[2018-06-22] MEDS: amLODIPine 5 MG TAB PO SCH ×2 (08:21→21:13)
[2018-06-22] MEDS: METOPROLOL SUCC *XL* 25MG TAB (TopROL *XL*) PO SCH ×2 (08:22→21:13)
[2018-06-22] MEDS: SENOKOT S TAB PO SCH ×2 (08:22→21:13)
[2018-06-22] MEDS: OMEPRAZOLE 20 MG CAP PO SCH ×2 (08:22→21:10)
[2018-06-22] MEDS: ALLOPURINOL 100 MG TAB PO SCH (08:22)
[2018-06-22] MEDS: APIXABAN 2.5 MG TAB (ELIQUIS) PO SCH ×2 (08:22→21:13)
[2018-06-22] MEDS: ALBUTEROL SULFATE 2.5 MG/0.5 ML INH NEB SOLN NEB SCH ×4 (08:36→23:49)
[2018-06-22 12:00] VITALS: BP 152/52
--- NOTE | 2018-06-22 12:50 | IPNPDOC ---
Text Note Date of Service The patient was seen on 06/22/18. NOTE SUBJECTIVE: SOB is better this am requiring less oxygen . No chest pain , no abdominal pain , no nausea or vomiting or diarrhea, no Fever or chills PHYSICAL EXAMINATION: Vital Signs: As below General: Patient awake, alert, and oriented times three. Sitting up in bed in no acute distress HEENT: Normocephalic, atraumatic. Moist mucous membranes. Anicteric eyes. Chest: Bilateral diffuse crackles. There is kyphoscoliosis present. Cardiovascular: S1, S2, regular. There is a short systolic murmur present. No rub or gallop. Abdomen: Soft, nontender, bowel sounds normal. Extremities: 1 to 2+ bipedal edema. 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 Madsen presented to the emergency room with two weeks history of gradually increasing shortness of breath and leg swelling and was found to have acute congestive heart failure. The patient had an echocardiogram done in the emergency room which showed severe pulmonary hypertension with right heart failure and cor pulmonale as well as mildly reduced systolic function with an ejection fraction (EF) of 50% to 55% and mild concentric left ventricular hypertrophy. There was also mild mitral regurgitation, severe tricuspid regurgitation. The patient was admitted for acute systolic and diastolic congestive heart failure. Congestive heart failure. As per Echo patient has both diastolic as well as systolic congestive heart failure (CHF), the patient also has acute right heart failure from severe pulmonary hypertension and cor pulmonale, will place the patient on no added salt diet, fluid restriction 1.5 mL, will also give Lasix 40 mg IV every 6 hours with potassium supplementation as required. Severe pulmonary hypertension with right sided heart failure. Will continue with diuresis. Acute hypoxic respiratory failure. This is due to CHF exacerbation. Will continue with oxygen supplementation and diuresis. Chronic kidney disease (CKD) stage III. Creatinine is baseline. Will continue to monitor creatinine in view of the diuresis that we are going to do. 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 Has a pacemaker in place. At present, the patient is in paced rhythm. Hypertension. The patient's blood pressure is uncontrolled at this point because of CHF exacerbation. Will increase blood pressure medications. Will increase amlodipine dosage. Will also start the patient on hydralazine and continue on metoprolol. Hyperlipidemia. Will continue with the Pravachol. Hiatal hernia. Will continue with omeprazole. Anemia of chronic disease and iron deficiency anemia. Will continue with ferrous sulfate. Gout. Will continue with allopurinol. Deep vein thrombosis (DVT) prophylaxis. The patient is on Eliquis. IgG kappa monoclonal gammopathy. The patient follows with oncology. Right lung mass and right upper lobe chronic atelectasis. The patient follows with Dr. Madsen. VS,Liza, I+O VS, Liza, I+O Laboratory Tests 06/22/18 06:43 Red Blood Count 3.10 L, Mean Corpuscular Volume 91.9, Mean Corpuscular H emoglobin 29.7, Mean Corpuscular Hemoglobin Concent 32.3, Red Cell Distribution Width 17.2 H, Neutrophils (%) (Auto) 77.5 H, Lymphocytes (%) (Auto) 10.4 L, Monocytes (%) (Auto) 10.1 H, Eosinophils (%) (Auto) 1.0, Basophils (%) (Auto) 0.3, Neutrophils # (Auto) 9.4 H, Lymphocytes # (Auto) 1.3 L, Monocytes # (Auto) 1.2 H, Eosinophils # (Auto) 0.1, Basophils # (Auto) 0.0 06/22/18 06:44 Calcium Level 8.4 L Vital Signs Date Time Temp Pulse Resp B/P (MAP) Pulse Ox O2 Delivery O2 Flow Rate FiO2 06/22/18 12:00 2.0 06/22/18 12:00 97.8 62 20 152/52 (85) 93 High Flow Cannula 06/19/18 16:00 50 I&O- Last 24 Hours up to 6 AM 06/22/18 06:00 Intake Total 390 ml Output Total 675 ml Balance -285 ml YOLIS GARCIA MD Jun 22, 2018 12:50
[2018-06-22] MEDS ORDERED: **NOTE PATIENT COMMENT** MISC XX ONE (14:00)
[2018-06-22] MEDS ORDERED: POTASSIUM CHLORIDE 10 MEQ SR TABLET PO ONE (14:00)
[2018-06-22] MEDS: FUROSEMIDE 40 MG TAB PO SCH (14:30)
[2018-06-22 17:25] VITALS: BP 144/62
[2018-06-22] MEDS: PRAVASTATIN 20 MG TAB PO SCH (21:13)
[2018-06-22 22:00] VITALS: BP 150/64
[2018-06-23] MEDS: **hydrALAZINE HCL** 25 MG TAB PO SCH ×5 (00:28→23:21)
[2018-06-23 06:00] VITALS: BP 142/64
[2018-06-23 06:14] LABS: CALCIUM LEVEL 8.5 MG/DL (8.8-10.2); CREATININE FOR GFR 1.47 MG/DL (0.70-1.30); GLOMERULAR FILTRATION RATE 48.4 (>35); POTASSIUM SERUM 3.4 MEQ/L (3.5-5.1)
[2018-06-23 06:34] LABS: BASO % 0.4 % (0.0-1.0); EOS % 0.4 % (0.0-3.0); HEMATOCRIT 27.9 % (42.0-52.0); HEMOGLOBIN 9.3 g/dl (13.5-17.5); LYMPH % 8.9 % (24.0-44.0); MEAN CORPUSCULAR HEMOGLOBIN 31.7 pg (27.0-33.0); MEAN CORPUSCULAR HGB CONC 33.3 g/dl (32.0-36.5); MEAN CORPUSCULAR VOLUME 95.2 fl (80.0-96.0); MONO # 1.1 10^3/uL (0.0-0.8); MONO % 10.2 % (0.0-5.0); NEUTROPHILS # 8.5 10^3/uL (1.8-7.7); NEUTROPHILS % 79.5 % (36.0-66.0); PLATELET COUNT, AUTOMATED 362 10^3/uL (150-450); RED BLOOD COUNT 2.93 10^6/uL (4.30-6.10); WHITE BLOOD COUNT 10.6 10^3/uL (4.0-10.0)
[2018-06-23] MEDS: ALBUTEROL SULFATE 2.5 MG/0.5 ML INH NEB SOLN NEB SCH ×3 (07:37→23:27)
[2018-06-23] MEDS: SENOKOT S TAB PO SCH ×2 (09:31→20:40)
[2018-06-23] MEDS: APIXABAN 2.5 MG TAB (ELIQUIS) PO SCH ×2 (09:31→20:40)
[2018-06-23] MEDS: OMEPRAZOLE 20 MG CAP PO SCH ×2 (09:31→20:39)
[2018-06-23] MEDS: ALLOPURINOL 100 MG TAB PO SCH (09:31)
[2018-06-23] MEDS: METOPROLOL SUCC *XL* 25MG TAB (TopROL *XL*) PO SCH ×2 (09:32→20:40)
[2018-06-23] MEDS: FUROSEMIDE 40 MG TAB PO SCH (09:32)
[2018-06-23] MEDS: amLODIPine 5 MG TAB PO SCH ×2 (09:32→20:40)
--- NOTE | 2018-06-23 09:37 | IPNPDOC ---
Text Note Date of Service The patient was seen on 06/23/18. NOTE SUBJECTIVE: This am as per nurses patient was confused though he was at the [facility] but during my rounds he knew he was at the hospital . He did say his breathing was a little worse than yesterday. He was hypoxic to 88% at rest in room air this am so he is back on oxygen . Also he had urinary retention of 500 cc after voiding so a sepulveda was placed. No chest pain , no abdominal pain , no nausea or vomiting or diarrhea, no Fever or chills PHYSICAL EXAMINATION: Vital Signs: As below General: Patient awake, alert, and oriented times three. Sitting up in bed in no acute distress HEENT: Normocephalic, atraumatic. Moist mucous membranes. Anicteric eyes. Chest: Bilateral diffuse crackles. There is kyphoscoliosis present. Cardiovascular: S1, S2, regular. There is a short systolic murmur present. No rub or gallop. Abdomen: Soft, nontender, bowel sounds normal. Extremities: 1 to 2+ bipedal edema. 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 Madsen presented to the emergency room with two weeks history of gradually increasing shortness of breath and leg swelling and was found to have acute congestive heart failure. The patient had an echocardiogram done in the emergency room which showed severe pulmonary hypertension with right heart failure and cor pulmonale as well as mildly reduced systolic function with an ejection fraction (EF) of 50% to 55% and mild concentric left ventricular hypertrophy. There was also mild mitral regurgitation, severe tricuspid regurgitation. The patient was admitted for acute systolic and diastolic congestive heart failure. Acute urinary retention sepulveda placed. Confusion could be due to mild hypoxia, hospital psychosis . his room was changed 4 times yesterday Congestive heart failure. As per Echo patient has both diastolic as well as systolic congestive heart failure (CHF), the patient also has acute right heart failure from severe pulmonary hypertension and cor pulmonale, will place the patient on no added salt diet, fluid restriction 1.5 mL Now improved. Almost euvolemic at this point. Lasix as per home dose now. with potassium supplementation as required. Severe pulmonary hypertension with right sided heart failure. Will continue with diuresis. Acute hypoxic respiratory failure. improved. This is due to CHF exacerbation. Will continue with lasix. Chronic kidney disease (CKD) stage III. Creatinine is baseline. Will continue to monitor creatinine in view of the diuresis that we are going to do. 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 Has a pacemaker in place. At present, the patient is in paced rhythm. Hypertension. The patient's blood pressure is uncontrolled at this point because of CHF exacerbation. Will increase blood pressure medications. Will increase amlodipine dosage. Will also start the patient on hydralazine and continue on metoprolol. Hyperlipidemia. Will continue with the Pravachol. Hiatal hernia. Will continue with omeprazole. Anemia of chronic disease and iron deficiency anemia. Will continue with ferrous sulfate. Gout. Will continue with allopurinol. Deep vein thrombosis (DVT) prophylaxis. The patient is on Eliquis. IgG kappa monoclonal gammopathy. The patient follows with oncology. Right lung mass and right upper lobe chronic atelectasis. The patient follows with Dr. Madsen. VS,Liza, I+O VS, Liza, I+O Laboratory Tests 06/23/18 05:19 Red Blood Count 2.93 L, Mean Corpuscular Volume 95.2, Mean Corpuscular Hemoglobin 31.7, Mean Corpuscular Hemoglobin Concent 33.3, Red Cell Distribution Width 17.1 H, Neutrophils (%) (Auto) 79.5 H, Lymphocytes (%) (Auto) 8.9 L, Monocytes (%) (Auto) 10.2 H, Eosinophils (%) (Auto) 0.4, Basophils (%) (Auto) 0.4, Neutrophils # (Auto) 8.5 H, Lymphocytes # (Auto) 1.0 L, Monocytes # (Auto) 1.1 H, Eosinophils # (Auto) 0.0, Basophils # (Auto) 0.0, Calcium Level 8.5 L Vital Signs Date Time Temp Pulse Resp B/P (MAP) Pulse Ox O2 Delivery O2 Flow Rate FiO2 06/23/18 06:19 142/64 06/23/18 06:00 99.5 69 21 90 Room Air 12/22/18 12:00 2.0 06/19/18 16:00 50 I&O- Last 24 Hours up to 6 AM 06/23/18 06:00 Intake Total 820 ml Output Total 25 ml Balance 795 ml YOLIS GARCIA MD Jun 23, 2018 07:35
[2018-06-23 12:09] VITALS: BP 122/54
[2018-06-23 18:00] VITALS: BP 170/74
[2018-06-23 18:52] VITALS: BP 150/64
[2018-06-23] MEDS: PRAVASTATIN 20 MG TAB PO SCH (20:39)
[2018-06-23 22:00] VITALS: BP 176/74
[2018-06-23 23:21] VITALS: BP 147/65
[2018-06-24 05:48] LABS: BASO # 0.1 10^3/uL (0.0-0.2); BASO % 0.5 % (0.0-1.0); EOS # 0.1 10^3/uL (0.0-0.50); EOS % 0.7 % (0.0-3.0); HEMATOCRIT 29.1 % (42.0-52.0); HEMOGLOBIN 9.2 g/dl (13.5-17.5); LYMPH # 0.8 10^3/uL (1.5-4.5); LYMPH % 8.6 % (24.0-44.0); MEAN CORPUSCULAR HEMOGLOBIN 29.8 pg (27.0-33.0); MEAN CORPUSCULAR HGB CONC 31.6 g/dl (32.0-36.5); MEAN CORPUSCULAR VOLUME 94.2 fl (80.0-96.0); MONO % 10.2 % (0.0-5.0); NEUTROPHILS # 7.7 10^3/uL (1.8-7.7); NEUTROPHILS % 79.6 % (36.0-66.0); PLATELET COUNT, AUTOMATED 326 10^3/uL (150-450); RED BLOOD COUNT 3.09 10^6/uL (4.30-6.10); WHITE BLOOD COUNT 9.7 10^3/uL (4.0-10.0)
[2018-06-24] MEDS: **hydrALAZINE HCL** 25 MG TAB PO SCH ×3 (05:52→18:51)
[2018-06-24 06:00] VITALS: BP 165/73
[2018-06-24 06:09] LABS: CALCIUM LEVEL 8.8 MG/DL (8.8-10.2); CREATININE FOR GFR 1.63 MG/DL (0.70-1.30); GLOMERULAR FILTRATION RATE 42.9 (>35); POTASSIUM SERUM 3.4 MEQ/L (3.5-5.1)
[2018-06-24 06:39] VITALS: BP 152/68
[2018-06-24] MEDS ORDERED: SODIUM CHLORIDE 0.45% 1000 ML IV ONE (09:00)
[2018-06-24] MEDS: ALBUTEROL SULFATE 2.5 MG/0.5 ML INH NEB SOLN NEB SCH (09:09)
[2018-06-24] MEDS: SENOKOT S TAB PO SCH ×2 (09:19→21:50)
[2018-06-24] MEDS: METOPROLOL SUCC *XL* 25MG TAB (TopROL *XL*) PO SCH ×2 (09:19→21:50)
[2018-06-24] MEDS: amLODIPine 5 MG TAB PO SCH ×2 (09:19→21:50)
[2018-06-24] MEDS: APIXABAN 2.5 MG TAB (ELIQUIS) PO SCH ×2 (09:20→21:50)
[2018-06-24] MEDS: OMEPRAZOLE 20 MG CAP PO SCH ×2 (09:20→21:50)
[2018-06-24] MEDS: ALLOPURINOL 100 MG TAB PO SCH (09:20)
--- NOTE | 2018-06-24 11:19 | IPNPDOC ---
Text Note Date of Service The patient was seen on 06/24/18. NOTE SUBJECTIVE: Pateint remains confused this am though did perk up later in the morning and worked with PT. He desaturated to 84% on ambulation . Also has a choking episode while drinking water. says always has a sensation of something sticking in his throat after swallowing. No chest pain , no abdominal pain , no nausea or vomiting or diarrhea, no Fever or chills. Sepulveda in place PHYSICAL EXAMINATION: Vital Signs: As below General: Patient awake, alert, and oriented times three. Sitting up in bed in no acute distress HEENT: Normocephalic, atraumatic. Moist mucous membranes. Anicteric eyes. Chest: Bilateral diffuse crackles. There is kyphoscoliosis present. Cardiovascular: S1, S2, regular. There is a short systolic murmur present. No rub or gallop. Abdomen: Soft, nontender, bowel sounds normal. Extremities: 1 to 2+ bipedal edema. 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 Madsen presented to the emergency room with two weeks history of gradually increasing shortness of breath and leg swelling and was found to have acute congestive heart failure. The patient had an echocardiogram done in the emergency room which showed severe pulmonary hypertension with right heart failure and cor pulmonale as well as mildly reduced systolic function with an ejection fraction (EF) of 50% to 55% and mild concentric left ventricular hypertrophy. There was also mild mitral regurgitation, severe tricuspid regurgitation. The patient was admitted for acute systolic and diastolic congestive heart failure. Acute urinary retention sepulveda placed. Confusion could be due to mild hypoxia, hospital psychosis , now may be mild ly dehydrated as seen by hypernatremia and rising BUN and creatinine from lasix. will stop lasix give 500 cc bolus fluid 1/2 NS Congestive heart failure. As per Echo patient has both diastolic as well as systolic congestive heart failure (CHF), the patient also has acute right heart failure from severe pulmonary hypertension and cor pulmonale, will place the patient on no added salt diet. will relax fluid restriction to 1.8 L Now improved. May be a little hypovolemic today So will hold Lasix Severe pulmonary hypertension with right sided heart failure. lasix as needed. Acute hypoxic respiratory failure. improved. This is due to CHF exacerbation. Will continue with lasix. Chronic kidney disease (CKD) stage III. Creatinine is baseline. Will continue to monitor creatinine in view of the diuresis that we are going to do. 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 Has a pacemaker in place. At present, the patient is in paced rhythm. Hypertension. The patient's blood pressure is uncontrolled at this point because of CHF exacerbation. Will increase blood pressure medications. Will increase amlodipine dosage. Will also start the patient on hydralazine and continue on metoprolol. Hyperlipidemia. Will continue with the Pravachol. Hiatal hernia. Will continue with omeprazole. Anemia of chronic disease and iron deficiency anemia. Will continue with ferrous sulfate. Gout. Will continue with allopurinol. Deep vein thrombosis (DVT) prophylaxis. The patient is on Eliquis. IgG kappa monoclonal gammopathy. The patient follows with oncology. Right lung mass and right upper lobe chronic atelectasis. The patient follows with Dr. Madsen. VS,Liza, I+O VS, Liza, I+O Laboratory Tests 06/24/18 05:32 Red Blood Count 3.09 L, Mean Corpuscular Volume 94.2, Mean Corpuscular Hemoglobin 29.8, Mean Corpuscular Hemoglobin Concent 31.6 L, Red Cell Distribution Width 16.8 H, Neutrophils (%) (Auto) 79.6 H, Lymphocytes (%) (Auto) 8.6 L, Monocytes (%) (Auto) 10.2 H, Eosinophils (%) (Auto) 0.7, Basophils (%) (Auto) 0.5, Neutrophils # (Auto) 7.7, Lymphocytes # (Auto) 0.8 L, Monocytes # (Auto) 1.0 H, Eosinophils # (Auto) 0.1, Basophils # (Auto) 0.1, Calcium Level 8.8 Vital Signs Date Time Temp Pulse Resp B/P (MAP) Pulse Ox O2 Delivery O2 Flow Rate FiO2 06/24/18 09:19 62 152/68 06/24/18 06:00 98.9 22 90 Nasal Cannula 1.0 06/19/18 16:00 50 I&O- Last 24 Hours up to 6 AM 06/24/18 05:59 Intake Total 690 ml Output Total 1375 ml Balance -685 ml YOLIS GARCIA MD Jun 24, 2018 11:19
[2018-06-24 14:00] VITALS: BP 142/69
[2018-06-24] MEDS: ALBUTEROL SULFATE 2.5 MG/0.5 ML INH NEB SOLN NEB PRN (16:54)
[2018-06-24] MEDS: PRAVASTATIN 20 MG TAB PO SCH (21:49)
[2018-06-24 22:00] VITALS: BP 120/58
[2018-06-25] MEDS: **hydrALAZINE HCL** 25 MG TAB PO SCH ×5 (00:07→23:49)
[2018-06-25 05:49] LABS: BASO % 0.5 % (0.0-1.0); EOS # 0.2 10^3/uL (0.0-0.50); EOS % 2.1 % (0.0-3.0); HEMATOCRIT 30.1 % (42.0-52.0); HEMOGLOBIN 9.4 g/dl (13.5-17.5); LYMPH % 11.9 % (24.0-44.0); MEAN CORPUSCULAR HEMOGLOBIN 30.2 pg (27.0-33.0); MEAN CORPUSCULAR HGB CONC 31.2 g/dl (32.0-36.5); MEAN CORPUSCULAR VOLUME 96.8 fl (80.0-96.0); MONO # 1.1 10^3/uL (0.0-0.8); MONO % 13.1 % (0.0-5.0); NEUTROPHILS # 6.3 10^3/uL (1.8-7.7); NEUTROPHILS % 71.9 % (36.0-66.0); PLATELET COUNT, AUTOMATED 306 10^3/uL (150-450); RED BLOOD COUNT 3.11 10^6/uL (4.30-6.10); WHITE BLOOD COUNT 8.7 10^3/uL (4.0-10.0)
[2018-06-25 06:00] VITALS: BP 139/64
[2018-06-25 06:23] LABS: CALCIUM LEVEL 8.7 MG/DL (8.8-10.2); CREATININE FOR GFR 1.63 MG/DL (0.70-1.30); GLOMERULAR FILTRATION RATE 42.9 (>35); POTASSIUM SERUM 3.7 MEQ/L (3.5-5.1)
[2018-06-25] MEDS: ALLOPURINOL 100 MG TAB PO SCH (09:00)
[2018-06-25] MEDS: APIXABAN 2.5 MG TAB (ELIQUIS) PO SCH ×2 (10:43→21:02)
[2018-06-25] MEDS: METOPROLOL SUCC *XL* 25MG TAB (TopROL *XL*) PO SCH ×2 (10:44→21:02)
[2018-06-25] MEDS: SENOKOT S TAB PO SCH ×2 (10:44→21:02)
[2018-06-25] MEDS: amLODIPine 5 MG TAB PO SCH ×2 (10:44→21:02)
[2018-06-25] MEDS: OMEPRAZOLE 20 MG CAP PO SCH ×2 (10:45→21:02)
[2018-06-25] MEDS: TAMSULOSIN 0.4 MG CAP PO SCH (10:45)
--- NOTE | 2018-06-25 13:55 | IPNPDOC ---
Text Note Date of Service The patient was seen on 06/25/18. NOTE Subjective: Patient feels well today. He notes that his mouth is dry. Denies any weakness. Is not confused this morning. Objective: Vitals: (see below) General: No acute distress, laying comfortably in bed HEENT: Moist mucous membranes Neck: No JVD or lymphadenopathy Cardiac: RRR, No murmurs Pulm: Diminished breath sounds at the bases. No wheezing, rhonchi Abd: NT/ND + BS Ext: Trace edema BLE. No cyanosis. Neuro: Strength 5/5 BUE and BLE. CN 2-12 intact. AAOx3 Labs (See below) A/P 1. Urinary retention. Started on Flomax. Has Sepulveda in place. No back pain. No alarming signs. UA/urine culture sent. 2. Status post acute hypoxic respiratory failure secondary to Decompensated diastolic heart failure. Diuretics on hold at this time as patient is euvolemic. Significantly less O2 requirements. 3. Delirium- likely multifactorial from diuresis, urinary retention, polypharmacy. Improved. Mentation at baseline this morning. 4. History of severe pulmonary hypertension and right-sided heart failure. 5. CK D stage III. Cranial baseline. Continue to monitor. 6. History of tachybradycardia status post PPM 7. History of atrial fibrillation rate controlled. On Eliquis 8. Hypertension controlled continue current meds. 9. History of GERD and hiatal hernia on PPI. 10. History anemia chronic disease with iron deficiency anemia. On ferrous sulfate. Will need outpatient follow-up. 11. History of gout on allopurinol 12. History of IgG kappa monoclonal gammopathy follows with oncology. Will need outpatient follow-up. 13. ? Right lung mass on chronic atelectasis- follows up with Dr. Madsen outpatient. Discussed with patient who prefers to have further work up out patient with Dr. Madsen. 14. History of Coumadin coagulopathy and GI bleed from gastric ulcers and ga stritis. 15. Straight esophageal stricture status post dilation in July 2017. DVT prophy: Eliquis Overall prognosis guarded. PT on consult. VS,Fishbone, I+O VS, Fishbone, I+O Laboratory Tests 06/25/18 05:31 Red Blood Count 3.11 L, Mean Corpuscular Volume 96.8 H, Mean Corpuscular Hemoglobin 30.2, Mean Corpuscular Hemoglobin Concent 31.2 L, Red Cell Distribution Width 16.6 H, Neutrophils (%) (Auto) 71.9 H, Lymphocytes (%) (Auto) 11.9 L, Monocytes (%) (Auto) 13.1 H, Eosinophils (%) (Auto) 2.1, Basophils (%) (Auto) 0.5, Neutrophils # (Auto) 6.3, Lymphocytes # (Auto) 1.0 L, Monocytes # (Auto) 1.1 H, Eosinophils # (Auto) 0.2, Basophils # (Auto) 0.0, Calcium Level 8.7 L Vital Signs Date Time Temp Pulse Resp B/P (MAP) Pulse Ox O2 Delivery O2 Flow Rate FiO2 06/25/18 10:44 60 139/64 06/25/18 07:25 18 95 Nasal Cannula 1.0 06/25/18 06:00 97.5 06/19/18 16:00 50 I&O- Last 24 Hours up to 6 AM 06/25/18 06:00 Intake Total 530 ml Output Total 700 ml Balance -170 ml AUDREY LANGE MD Jun 25, 2018 13:55
[2018-06-25 14:00] VITALS: BP 118/55
[2018-06-25 15:51] LABS: APPEARANCE, URINE CLOUDY (CLEAR); BACTERIA, URINE AUTO NEGATIVE (NEGATIVE); BILIRUBIN, URINE AUTO NEGATIVE (NEGATIVE); BLOOD, URINE BLOOD 2+ (NEGATIVE); COLOR, URINE YELLOW (YELLOW); GLUCOSE, URINE (UA) AUTO NEGATIVE (NEGATIVE); KETONE, URINE AUTO NEGATIVE (NEGATIVE); LEUKOCYTE ESTERASE, URINE AUTO 1+ (NEGATIVE); MUCUS, URINE SMALL (NEGATIVE); NITRITE, URINE AUTO NEGATIVE (NEGATIVE); PROTEIN, URINE AUTO 2+ mg/dL (NEGATIVE); RBC, URINE AUTO 178 /HPF (0-3); SPECIFIC GRAVITY URINE AUTO 1.013 (1.002-1.035); SQUAMOUS EPITHELIAL CELL UR AU 0 /HPF (0-6); UROBILINOGEN, URINE AUTO 0.2 mg/dL (0.0-2.0); WBC, URINE AUTO 36 /HPF (0-3)
[2018-06-25 18:30] VITALS: BP 119/59
[2018-06-25] MEDS: PRAVASTATIN 20 MG TAB PO SCH (21:01)
[2018-06-25 22:00] VITALS: BP 147/65
[2018-06-26] MEDS: **hydrALAZINE HCL** 25 MG TAB PO SCH ×3 (05:14→17:47)
[2018-06-26 06:00] VITALS: BP 130/60
[2018-06-26 06:36] LABS: BASO % 0.3 % (0.0-1.0); EOS # 0.3 10^3/uL (0.0-0.50); HEMATOCRIT 29.8 % (42.0-52.0); HEMOGLOBIN 9.4 g/dl (13.5-17.5); LYMPH % 11.8 % (24.0-44.0); MEAN CORPUSCULAR HEMOGLOBIN 29.7 pg (27.0-33.0); MEAN CORPUSCULAR HGB CONC 31.5 g/dl (32.0-36.5); MEAN CORPUSCULAR VOLUME 94.3 fl (80.0-96.0); MONO % 11.6 % (0.0-5.0); NEUTROPHILS # 6.4 10^3/uL (1.8-7.7); NEUTROPHILS % 72.8 % (36.0-66.0); PLATELET COUNT, AUTOMATED 295 10^3/uL (150-450); RED BLOOD COUNT 3.16 10^6/uL (4.30-6.10); WHITE BLOOD COUNT 8.7 10^3/uL (4.0-10.0)
[2018-06-26 06:49] LABS: CALCIUM LEVEL 8.6 MG/DL (8.8-10.2); CREATININE FOR GFR 1.7 MG/DL (0.70-1.30); GLOMERULAR FILTRATION RATE 40.9 (>35); POTASSIUM SERUM 3.5 MEQ/L (3.5-5.1)
[2018-06-26] MEDS ORDERED: D5W/0.45% SODIUM CHLORIDE 1,000 ML IV SCH (09:00)
[2018-06-26] MEDS: cefTRIAXone SOD 1 GM in D5W MINI-BAG PLUS 50 ML IV SCH (09:37)
[2018-06-26] MEDS: TAMSULOSIN 0.4 MG CAP PO SCH (09:37)
[2018-06-26] MEDS: ALLOPURINOL 100 MG TAB PO SCH (09:38)
[2018-06-26] MEDS: SENOKOT S TAB PO SCH ×2 (09:38→21:15)
[2018-06-26] MEDS: METOPROLOL SUCC *XL* 25MG TAB (TopROL *XL*) PO SCH ×2 (09:38→21:00)
[2018-06-26] MEDS: APIXABAN 2.5 MG TAB (ELIQUIS) PO SCH ×2 (09:38→21:16)
[2018-06-26] MEDS: amLODIPine 5 MG TAB PO SCH ×2 (09:38→21:23)
[2018-06-26] MEDS: OMEPRAZOLE 20 MG CAP PO SCH ×2 (09:44→21:15)
--- NOTE | 2018-06-26 10:15 | IPNPDOC ---
Text Note Date of Service The patient was seen on 06/26/18. NOTE Subjective: No dysphagia today. Denies any weakness. Feels well. No CP/SOB. Plan to remove sepulveda. Objective: Vitals: (see below) General: No acute distress, laying comfortably in bed HEENT: Moist mucous membranes Neck: No JVD or lymphadenopathy Cardiac: RRR, No murmurs Pulm: Diminished breath sounds at the bases. No wheezing, rhonchi Abd: NT/ND + BS Ext: Trace edema BLE. No cyanosis. Neuro: Strength 5/5 BUE and BLE. CN 2-12 intact. AAOx3 Labs (See below) A/P 1. Urinary retention. Started on Flomax. Has Sepulveda in place. No back pain. No alarming signs. UA+,. Started on Rocephin. Urine culture pend. Plan to d/c sepulveda. 2. Status post acute hypoxic respiratory failure secondary to Decompensated diastolic heart failure. Diuretics on hold at this time as patient is euvolemic. Significantly less O2 requirements. 3. Delirium- likely multifactorial from diuresis, urinary retention, polypharmacy. Improved. Mentation at baseline this morning. 4. History of severe pulmonary hypertension and right-sided heart failure. 5. CK D stage III. Cranial baseline. Continue to monitor. 6. History of tachybradycardia status post PPM 7. History of atrial fibrillation rate controlled. On Eliquis 8. Hypertension controlled continue current meds. 9. History of GERD and hiatal hernia on PPI. 10. History anemia chronic disease with iron deficiency anemia. On ferrous lebron lfate. Will need outpatient follow-up. 11. History of gout on allopurinol 12. History of IgG kappa monoclonal gammopathy follows with oncology. Will need outpatient follow-up. 13. ? Right lung mass on chronic atelectasis- follows up with Dr. Madsen outpatient. Discussed with patient who prefers to have further work up outpatient with Dr. Madsen. 14. History of Coumadin coagulopathy and GI bleed from gastric ulcers and gastritis. 15. H/o esophageal stricture status post dilation in July 2017. DVT prophy: Eliquis Overall prognosis guarded. PT on consult. VS,Fishbone, I+O VS, Fishbone, I+O Laboratory Tests 06/26/18 05:45 Red Blood Count 3.16 L, Mean Corpuscular Volume 94.3, Mean Corpuscular Hemoglobin 29.7, Mean Corpuscular Hemoglobin Concent 31.5 L, Red Cell Distribution Width 16.2 H, Neutrophils (%) (Auto) 72.8 H, Lymphocytes (%) (Auto) 11.8 L, Monocytes (%) (Auto) 11.6 H, Eosinophils (%) (Auto) 3.0, Basophils (%) (Auto) 0.3, Neutrophils # (Auto) 6.4, Lymphocytes # (Auto) 1.0 L, Monocytes # (Auto) 1.0 H, Eosinophils # (Auto) 0.3, Basophils # (Auto) 0.0, Calcium Level 8.6 L Vital Signs Date Time Temp Pulse Resp B/P (MAP) Pulse Ox O2 Delivery O2 Flow Rate FiO2 06/26/18 09:38 62 130/60 06/26/18 06:00 97.7 21 95 Nasal Cannula 1.0 I&O- Last 24 Hours up to 6 AM 06/26/18 06:00 Intake Total 990 ml Output Total 800 ml Balance 190 ml AUDREY LANGE MD Jun 26, 2018 10:15
--- NOTE | 2018-06-26 12:29 | NUR ---
Pt's oral and pharyngeal phase swallow appears wnl. No s/sx aspiration or penetration observed. Pt c/o globus sensation in esophageal region and modifying diet consistency at home. Recommend level 2 mechanically altered (NDD) solids, thin liquids, upright during and 30 min post-meals, small bite/sip, alternate bite/sip. GI consult. Addendum: 06/26/[address] [facility] Amended: Links added.
[2018-06-26 14:00] VITALS: BP 133/54
[2018-06-26] MEDS: PRAVASTATIN 20 MG TAB PO SCH (21:15)
[2018-06-26 22:00] VITALS: BP 118/55
[2018-06-27] VITALS (9 sets, daily range): BP systolic 122–148; BP diastolic 53–109
[2018-06-27 06:07] LABS: BASO % 0.3 % (0.0-1.0); EOS # 0.2 10^3/uL (0.0-0.50); EOS % 1.9 % (0.0-3.0); HEMATOCRIT 31.2 % (42.0-52.0); HEMOGLOBIN 9.8 g/dl (13.5-17.5); LYMPH # 0.8 10^3/uL (1.5-4.5); LYMPH % 8.9 % (24.0-44.0); MEAN CORPUSCULAR HEMOGLOBIN 29.1 pg (27.0-33.0); MEAN CORPUSCULAR HGB CONC 31.4 g/dl (32.0-36.5); MEAN CORPUSCULAR VOLUME 92.6 fl (80.0-96.0); MONO # 0.8 10^3/uL (0.0-0.8); MONO % 8.1 % (0.0-5.0); NEUTROPHILS # 7.5 10^3/uL (1.8-7.7); NEUTROPHILS % 80.4 % (36.0-66.0); PLATELET COUNT, AUTOMATED 322 10^3/uL (150-450); RED BLOOD COUNT 3.37 10^6/uL (4.30-6.10); WHITE BLOOD COUNT 9.3 10^3/uL (4.0-10.0)
[2018-06-27] MEDS ORDERED: IPRATROPIUM 0.5MG/ALBUTEROL 2.5MG INH SOL UD 3ML (DUONEB)(J7620) NEB ONE (06:15)
[2018-06-27] MEDS ORDERED: NALOXONE INJ 0.4 MG/1 ML VIAL (J2310) As Ordered ONE (06:30)
[2018-06-27 06:33] LABS: CALCIUM LEVEL 8.6 MG/DL (8.8-10.2); CREATININE FOR GFR 1.73 MG/DL (0.70-1.30); GLOMERULAR FILTRATION RATE 40.1 (>35); POTASSIUM SERUM 3.7 MEQ/L (3.5-5.1)
[2018-06-27] MEDS ORDERED: NALOXONE INJ 0.4 MG/1 ML VIAL (J2310) IV STA (06:34)
[2018-06-27 06:36] LABS: ABG BASE EXCESS 1.2 (-2.0-2.0); ABG O2 SATURATION 92.7 % (95.0-99.0); ABG PARTIAL PRESSURE CO2 42.1 mmHg (35.0-45.0); ABG PARTIAL PRESSURE O2 64.3 mmHg (75.0-100.0); ABG STANDARD HCO3 25.5 MEQ/L (22.0-26.0); ABG TOTAL CO2 27.3 MEQ/L (23.0-31.0); ABG pH (ARTERIAL) 7.409 UNITS (7.350-7.450)
--- NOTE | 2018-06-27 06:48 | IPNPDOC ---
Subjective Date Seen The patient was seen on 06/27/18. Subjective Chief Complaint/HPI Called by staff this AM for non-responsive and hypoxic patient. Staff informed me that he had previously been responsive, interactive, and saturating well on 3L, however during a vitals assessment they found him saturating at 83% and placed him on nonrebreather at bedside where he began saturating at 90% and told staff I was on my way. I arrived at bedside, patient was still non-responsive to sternal rub and was on non-rebreather at 15% with otherwise stable vitals. Eyes were open, fixed, and pinpoint. No narcotics or history of narcotic use, narcan was given due to pinpoint pupils, but was ineffective. Ordered stat ABG, CT head, CXR, nebulizer treatments, and called a stroke code. ABG only showed hypoxemia not hypercapnia or acidosis, will try trial of lasix given patients history of CHF. CT head negative, CXR showed cardiomegaly with chronic interstitial changes, no consolidation on my review but awaiting official read. Patient's family has been tried 3 times by staff. Patient was transferred to ICU immediately following CT head for closer monitoring. Staff trying to notify family. Patient is full code. 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 Currently ordering MRI without contrast due to patients poor renal function. Discussed with attending and AM team to take over patient's care. Objective Physical Examination General Exam: Negative: Alert Eye Exam: Positive: Other Eye Symptoms (Fixed pinpoint pupils); Negative: EOMI, Sclera icteric Neuro Exam: Positive: Other (Downgoing babinski bilaterally. Patient did appear mildly responsive to pain and turned his head toward painful stimuli when it occurred. Eyes open spontaneously with blinking. Non-verbal. GCS of 10) Assessment /Plan Plan/VTE VTE Prophylaxis Ordered?: Yes VS, I&O, 24H, Fishbone Vital Signs/I&O Vital Signs Date Time Temp Pulse Resp B/P (MAP) Pulse Ox O2 Delivery O2 Flow Rate FiO2 06/27/18 00:00 148/64 06/26/18 22:00 97.5 60 19 94 Room Air 06/26/18 09:00 1.0 I&O- Last 24 Hours up to 6 AM 06/27/18 06:00 Intake Total 480 ml Output Total 400 ml Balance 80 ml Laboratory Data 24H LABS Laboratory Tests 2 06/27/18 05:47: Bedside Glucose (Misc Panel) 97 06/27/18 05:58: Immature Granulocyte % (Auto) 0.4, White Blood Count 9.3, Red Blood Count 3.37L, Hemoglobin 9.8L, Hematocrit 31.2L, Mean Corpuscular Volume 92.6, Mean Corpuscular Hemoglobin 29.1, Mean Corpuscular Hemoglobin Concent 31.4L, Red Cell Distribution Width 15.8H, Platelet Count 322, Neutrophils (%) (Auto) 80.4H, Lymphocytes (%) (Auto) 8.9L, Monocytes (%) (Auto) 8.1H, Eosinophils (%) (Auto) 1.9, Basophils (%) (Auto) 0.3, Neutrophils # (Auto) 7.5, Lymphocytes # (Auto) 0.8L, Monocytes # (Auto) 0.8, Eosinophils # (Auto) 0.2, Basophils # (Auto) 0.0, Nucleated Red Blood Cells % (auto) 0.0, Anion Gap 7L, Glomerular Filtration Rate 40.1, Blood Urea Nitrogen 52H, Creatinine 1.73H, Sodium Level 141, Potassium Level 3.7, Chloride Level 108H, Carbon Dioxide Level 26, Calcium Level 8.6L 06/27/18 06:24: Blood Gas Bicarbonate Standard 25.5, Arterial Blood pH 7.409, Arterial Blood Partial Pressure CO2 42.1, Arterial Blood Partial Pressure O2 64.3L, Arterial Blood Total CO2 27.3, Arterial Blood HCO3 26.0, Arterial Blood Base Excess 1.2, Arterial Blood Oxygen Saturation 92.7L CBC/BMP Laboratory Tests 06/27/18 05:58 Red Blood Count 3.37 L, Mean Corpuscular Volume 92.6, Mean Corpuscular Hemoglobin 29.1, Mean Corpuscular Hemoglobin Concent 31.4 L, Red Cell Distribution Width 15.8 H, Neutrophils (%) (Auto) 80.4 H, Lymphocytes (%) (Auto) 8.9 L, Monocytes (%) (Auto) 8.1 H, Eosinophils (%) (Auto) 1.9, Basophils (%) (Auto) 0.3, Neutrophils # (Auto) 7.5, Lymphocytes # (Auto) 0.8 L, Monocytes # (Auto) 0.8, Eosinophils # (Auto) 0.2, Basophils # (Auto) 0.0, Calcium Level 8.6 L Microbiology Microbiology 06/19/18 Blood Culture - Final, Complete NO GROWTH AFTER 5 DAYS 06/19/18 Blood Culture - Final, Complete NO GROWTH AFTER 5 DAYS 06/25/18 Urine Culture, Received Pending GME ATTESTATION GME ATTESTATION My faculty preceptor for this patient encounter was physically present during the encounter and was fully available. All aspects of the patient interview, examination, medical decision making process, and medical care plan development were reviewed and approved by the faculty preceptor. The faculty preceptor is aware and concurs with the plan as stated in the body of this note and will attest to such by his/her cosignature. TORI RAWLS DO Jun 27, 2018 06:48
--- NOTE | 2018-06-27 06:53 | REPVR ---
EXAM: CT Head Without Contrast EXAM DATE/TIME: 06/27/2018 6:17 AM CLINICAL HISTORY: 87 years old, male; Signs and symptoms; Altered mental status/memory loss; Other: Acute changes in mentation; Additional info: Acute change in baseline mentation, functioning TECHNIQUE: Axial computed tomography images of the head/brain without contrast. All CT scans at this facility use at least one of these dose optimization techniques: automated exposure control; mA and/or kV adjustment per patient size (includes targeted exams where dose is matched to clinical indication); or iterative reconstruction. COMPARISON: CT Head without contrast 06/19/2016 10:00 AM FINDINGS: Brain: There is mild prominence of the peripheral sulci. Ventricles: There is slight prominence of the central ventricular system. Bones/joints: Normal. No acute fracture. Sinuses: Minimal right posterior ethmoid sinus mucosal thickening. Mastoid air cells: Normal as visualized. No mastoid effusion. Soft tissues: Normal. IMPRESSION: 1. There has been no change since 06/19/2016. No acute interval intracranial process is identified. 2. Minimal diffuse atrophy. 3. Minimal right posterior ethmoid sinus disease. Electronically signed by: Leon Garcia On 06/27/2018 06:53:28 AM
[2018-06-27] MEDS: **hydrALAZINE HCL** 25 MG TAB PO SCH ×4 (07:00→17:30)
[2018-06-27] MEDS ORDERED: FUROSEMIDE 40 MG/4 ML VIAL (J1940) IV STA (07:02)
[2018-06-27] MEDS ORDERED: FUROSEMIDE 40 MG/4 ML VIAL (J1940) As Ordered ONE (07:05)
--- NOTE | 2018-06-27 08:12 | REP ---
PORTABLE CHEST X-RAY: Single view. HISTORY: Hypoxia. COMPARISON STUDY: June 19, 2018. FINDINGS: EKG monitoring electrodes overlie the chest. Bipolar pacemaker is seen in place. Mild cardiomegaly is observed unchanged. There is some blunting of the pleural angles bilaterally essentially unchanged. Pulmonary vasculature is cephalized. There is some linear opacity in the right lower lobe distribution which may reflect discoid atelectasis. Pleural thickening persists at the right apex. No definite new infiltrate. IMPRESSION: CHF pattern. Discoid atelectasis suspected right base. Air bronchograms persist in the left base. No new infiltrate. Electronically Signed by Jonathon Maravilla MD 06/27/2018 08:50 A
[2018-06-27] MEDS: cefTRIAXone SOD 1 GM in D5W MINI-BAG PLUS 50 ML IV SCH (09:00)
--- NOTE | 2018-06-27 09:35 | REP ---
Clinical: Dyspnea. Technique: Axial noncontrast images from the thoracic inlet to the upper abdomen with coronal and sagittal re-formations. Findings: Cardiomegaly along with prominent pulmonary vasculature, cephalization, increased interstitial markings, bilateral lower lobe consolidation/atelectasis and moderate partially loculated left pleural effusion are most compatible with CHF and pulmonary edema. Mediastinal and hilar adenopathy is identified with lymph nodes measuring up to 20 mm along with scattered calcified lymph nodes and granulomas. Extensive atherosclerotic changes to the thoracic aorta and coronary arteries identified without aortic aneurysm or pericardial effusion. Splenic and hepatic parenchymal calcifications identified and consistent with prior granulomas disease. Kidneys demonstrate atrophic changes (left greater than right) along with hypodensities suggesting cysts. Normal bilateral adrenal glands. Impression: 1. Findings compatible with CHF and pulmonary edema. 2. Differential diagnosis includes active pulmonary process including pneumonia. 3. Extensive atherosclerotic disease. 4. Evidence for chronic granulomatous disease. 5. Renal atrophic changes and bilateral renal hypodensities likely representing cysts but incompletely evaluated by noncontrast chest CT. Electronically Signed by Adrian Molina MD 06/27/2018 09:25 A
[2018-06-27 09:44] LABS: FOLATE > 24.0 NG/ML (>5.4); VITAMIN B12 LEVEL > 2000 PG/ML (247-911)
[2018-06-27] MEDS: PIPERACILLIN/TAZOBACTAM SOD 2.25 GM in D5W MINI-BAG PLUS 50 ML IV SCH ×3 (10:50→22:24)
[2018-06-27] MEDS ORDERED: FUROSEMIDE 40 MG/4 ML VIAL (J1940) IV ONE ×2 (11:00→19:00)
[2018-06-27] MEDS: APIXABAN 2.5 MG TAB (ELIQUIS) PO SCH ×2 (11:01→20:18)
[2018-06-27] MEDS: SENOKOT S TAB PO SCH ×2 (11:01→20:19)
[2018-06-27] MEDS: TAMSULOSIN 0.4 MG CAP PO SCH (11:01)
[2018-06-27] MEDS: ALLOPURINOL 100 MG TAB PO SCH (11:01)
[2018-06-27] MEDS: OMEPRAZOLE 20 MG CAP PO SCH ×2 (11:01→20:18)
[2018-06-27] MEDS: METOPROLOL SUCC *XL* 25MG TAB (TopROL *XL*) PO SCH ×2 (11:02→20:20)
[2018-06-27] MEDS: amLODIPine 5 MG TAB PO SCH ×2 (11:02→20:19)
--- NOTE | 2018-06-27 13:40 | IPNPDOC ---
Text Note Date of Service The patient was seen on 06/27/18. NOTE Subjective: Patient had an episode of altered mental status, noted to be 'st aring in space', and hypoxia overnight. This a.m., he is awake alert and oriented, with no focal deficits, and requiring 4 L nasal cannula. He is noting a productive cough since yesterday. Objective: Vitals: (see below) General: No acute distress, laying comfortably in bed HEENT: Moist mucous membranes Neck: No JVD or lymphadenopathy Cardiac: RRR, No murmurs Pulm: Diminished breath sounds at the bases. No wheezing, rhonchi Abd: NT/ND + BS Ext: Trace edema BLE. No cyanosis. Neuro: Strength 5/5 BUE and BLE. CN 2-12 intact. AAOx3 Labs (See below) A/P 1. Urinary retention. Started on Flomax. No back pain. No alarming signs. UA+,. Started on Rocephin. Urine culture pend. 2. Acute hypoxic respiratory failure secondary to Decompensated diastolic heart failure. Lasix IV. Patient also on noted to have possible infiltrates on CT chest, and started on Zosyn. 3. Altered mental status - ? Delirium, hypoxia, ?pna. ? Seizure, as patient was noted to be 'staring in space'. CT head negative for CVA. Unable to obtain MRI I secondary to PPM. No focal deficits on exam this morning. EEG pending. Neuro checks every 4. 4. History of severe pulmonary hypertension and right-sided heart failure. 5. CK D stage III. Cranial baseline. Continue to monitor. 6. History of tachybradycardia status post PPM 7. History of atrial fibrillation rate controlled. On Eliquis 8. Hypertension controlled continue current meds. 9. History of GERD and hiatal hernia on PPI. 10. History anemia chronic disease with iron deficiency anemia. On ferrous sulfate. Will need outpatient follow-up. 11. History of gout on allopurinol 12. History of IgG kappa monoclonal gammopathy follows with oncology. Will need outpatient follow-up. 13. ? Right lung mass on chronic atelectasis- follows up with Dr. Cale webb. Discussed with patient who prefers to have further work up outpatient with Dr. Madsen. 14. History of Coumadin coagulopathy and GI bleed from gastric ulcers and gastritis. 15. H/o esophageal stricture status post dilation in July 2017. DVT prophy: Eliquis Overall prognosis guarded. PT on consult. VS,Fishbone, I+O VS, Fishbone, I+O Laboratory Tests 06/27/18 05:58 Red Blood Count 3.37 L, Mean Corpuscular Volume 92.6, Mean Corpuscular Hemogl obin 29.1, Mean Corpuscular Hemoglobin Concent 31.4 L, Red Cell Distribution Width 15.8 H, Neutrophils (%) (Auto) 80.4 H, Lymphocytes (%) (Auto) 8.9 L, Monocytes (%) (Auto) 8.1 H, Eosinophils (%) (Auto) 1.9, Basophils (%) (Auto) 0.3, Neutrophils # (Auto) 7.5, Lymphocytes # (Auto) 0.8 L, Monocytes # (Auto) 0.8, Eosinophils # (Auto) 0.2, Basophils # (Auto) 0.0, Calcium Level 8.6 L Vital Signs Date Time Temp Pulse Resp B/P (MAP) Pulse Ox O2 Delivery O2 Flow Rate FiO2 06/27/18 11:21 92 Nasal Cannula 4.0 06/27/18 11:02 67 140/62 06/27/18 10:55 98.0 06/27/18 10:50 24 60 I&O- Last 24 Hours up to 6 AM 06/27/18 06:00 Intake Total 480 ml Output Total 400 ml Balance 80 ml AUDREY LANGE MD Jun 27, 2018 13:40
[2018-06-27] MEDS: guaiFENesin ER 600 MG TAB PO SCH (17:24)
[2018-06-27 18:06] LABS: BASO % 0.2 % (0.0-1.0); EOS # 0.1 10^3/uL (0.0-0.50); EOS % 0.8 % (0.0-3.0); HEMATOCRIT 30.8 % (42.0-52.0); HEMOGLOBIN 9.7 g/dl (13.5-17.5); LYMPH # 0.9 10^3/uL (1.5-4.5); MEAN CORPUSCULAR HEMOGLOBIN 29.7 pg (27.0-33.0); MEAN CORPUSCULAR HGB CONC 31.5 g/dl (32.0-36.5); MEAN CORPUSCULAR VOLUME 94.2 fl (80.0-96.0); MONO # 0.8 10^3/uL (0.0-0.8); MONO % 8.4 % (0.0-5.0); NEUTROPHILS # 7.1 10^3/uL (1.8-7.7); NEUTROPHILS % 79.9 % (36.0-66.0); PLATELET COUNT, AUTOMATED 304 10^3/uL (150-450); RED BLOOD COUNT 3.27 10^6/uL (4.30-6.10); WHITE BLOOD COUNT 8.9 10^3/uL (4.0-10.0)
[2018-06-27 18:36] LABS: ALBUMIN 2.8 GM/DL (3.2-5.2); BILIRUBIN,TOTAL 0.4 MG/DL (0.2-1.0); C REACTIVE PROTEIN QUANTITATIV 2.41 MG/DL (0.00-0.30); CALCIUM LEVEL 8.5 MG/DL (8.8-10.2); CREATININE FOR GFR 1.77 MG/DL (0.70-1.30); MAGNESIUM LEVEL 1.9 MG/DL (1.8-2.4); POTASSIUM SERUM 3.7 MEQ/L (3.5-5.1); TOTAL PROTEIN 6.5 GM/DL (6.4-8.2)
[2018-06-27] MEDS: PRAVASTATIN 20 MG TAB PO SCH (20:18)
[2018-06-28] VITALS (9 sets, daily range): BP systolic 104–144; BP diastolic 58–72
[2018-06-28] MEDS: PIPERACILLIN/TAZOBACTAM SOD 2.25 GM in D5W MINI-BAG PLUS 50 ML IV SCH ×4 (05:00→22:51)
[2018-06-28] MEDS: **hydrALAZINE HCL** 25 MG TAB PO SCH ×4 (05:58→17:49)
[2018-06-28 07:53] LABS: BASO % 0.3 % (0.0-1.0); EOS # 0.1 10^3/uL (0.0-0.50); EOS % 0.9 % (0.0-3.0); HEMATOCRIT 31.1 % (42.0-52.0); HEMOGLOBIN 9.7 g/dl (13.5-17.5); LYMPH # 0.9 10^3/uL (1.5-4.5); LYMPH % 8.8 % (24.0-44.0); MEAN CORPUSCULAR HEMOGLOBIN 29.8 pg (27.0-33.0); MEAN CORPUSCULAR HGB CONC 31.2 g/dl (32.0-36.5); MEAN CORPUSCULAR VOLUME 95.4 fl (80.0-96.0); MONO % 10.1 % (0.0-5.0); NEUTROPHILS # 8.2 10^3/uL (1.8-7.7); NEUTROPHILS % 79.1 % (36.0-66.0); PLATELET COUNT, AUTOMATED 291 10^3/uL (150-450); RED BLOOD COUNT 3.26 10^6/uL (4.30-6.10); WHITE BLOOD COUNT 10.3 10^3/uL (4.0-10.0)
--- NOTE | 2018-06-28 07:57 | EEG ---
DATE OF EE06/27/2018 REFERRING PHYSICIAN: Dr. Jennifer Mejia DIAGNOSIS: Seizure. EEG NUMBER: [id number]. HISTORY: The patient is an 87-year-old man who was admitted at [facility] due to shortness of breath, congestive heart failure and pneumonia. He had two staring episodes. This EEG was done to rule out epileptic potential. He is currently taking Zosyn, Eliquis, Prilosec, amlodipine, hydralazine, pravastatin, Flomax, Lasix, etc. TECHNICAL DESCRIPTION: This digital EEG was recorded by 21 scalp, ear and two EKG electrodes and was reviewed in bipolar and referential montages following reformatting in 10-20 international electrode placement system. INTERPRETATION: The patient was noted to be in awake state during this EEG. Resting awake background rhythm consisted of 7-8 Hz theta activity measuring 15-30 microvolts in amplitude. Background rhythm was symmetric bilaterally. No sleep was achieved. Hyperventilation could not be performed. Photic stimulation remained unremarkable. EKG was affected by motion and lead artifact. No focal, lateralizing or epileptiform abnormalities were seen. No clinical or electrographic seizures were recorded. CONCLUSION: This EEG in awake state is minimally abnormal due to presence of minimal background slowing consistent with nonspecific minimal diffuse cerebral dysfunction such as seen in encephalopathy due to multiple potential causes. No clear epileptiform abnormalities were seen. Clinical correlation is recommended.
--- NOTE | 2018-06-28 08:04 | CR ---
DATE OF CONSULTATION: 06/27/2018 REFERRING PHYSICIAN: Dr. Jin Paz REASON FOR CONSULTATION: Staring episodes with decreased oxygen saturation. HISTORY OF PRESENT ILLNESS: Bryan Lara is a 87-year-old man who was admitted at [facility] due to increasing shortness of breath for 2 weeks. His shortness of breath became worse the night before his admission on June 19, 2018. The patient used to be on Coumadin in past which was changed to Eliquis. He started noticing difficulty with shortness of breath 2 weeks before he was admitted at [facility] with productive cough. The patient was found to have congestive heart failure and pulmonary edema with possibility of pneumonia. He was diuresed and his oxygen saturations were getting better. He did not need oxygen on June 26, 2018. This morning around 7:30 a.m. and then 2:00 p.m. he had episodes of staring off into space according to nurses. They lasted for 30 - 60 minutes. He would not respond. He had his hands tied in a fist. His oxygen saturations dropped to low 80s requiring oxygen and then nonrebreather mask. There was no generalized shaking. There was no urinary incontinence or tongue biting in any of these episodes. These happened around 7:30 a.m. and 2:00 p.m.. The patient is now back to his usual self and is able to provide a reasonable history. He denies any headaches, neck pain, dysphagia, dysarthria, diplopia or urinary incontinence. He has history of chronic back pain related to arthritis he states. He uses a walker at home. He lives with his . PAST MEDICAL HISTORY: History of temporal GI bleed from acute gastritis. Lung mass. Hypertension. Dyslipidemia. Rheumatoid arthritis. Coronary artery disease. Iron-deficiency anemia. MGUS. Chronic kidney disease. Hiatal hernia. Osteoarthritis. Atrial fibrillation. Diastolic congestive heart failure. Esophageal stricture status post dilation. Pacemaker placement. Bilateral knee replacement. Cataract surgery. Lens implantation. Bilateral toe surgeries. SOCIAL HISTORY: He smokes one cigarettes a day. He denies alcohol or illicit drugs. FAMILY HISTORY: Noncontributory. ALLERGIES: PROMETHAZINE. REVIEW OF SYSTEMS: All systems were reviewed and found to be noncontributory except as mentioned in history of present illness. PHYSICAL EXAMINATION: Temperature 98.3, pulse 62, respiratory 26, blood pressure 128/53. Heart irregularly irregular. Lungs: Examination revealed crackles bilaterally in bases. Abdomen: Soft, nontender, nondistended. No pedal edema. No musculoskeletal abnormalities or rash. No signs of meningeal irritation. No tremor, dysmetria or ataxia. The patient is awake, alert, oriented to month, year, name of city, state, hospital, president and person. His speech is normal. His comprehension is normal. Distant memory is intact. Visual swanson are full to confrontation. No facial weakness. Tongue and uvula are midline. Extraocular muscles are intact. His left pupil is dilated likely due to his previous surgery. He is able to move all four extremities equally well. Strength is 5/5 in all for extremities. He has decreased sensation to cold vibration in his feet. His gait was not tested. The patient is laying in ICU bed with oxygen. DIAGNOSTIC STUDIES: CT scan of head showed mild atrophy and small-vessel ischemic disease of brain. Creatinine is 1.7. Hemoglobin is 9.8. Vitamin B12 level is 2000. TSH is normal. Folic acid is more than 24. His TSH is 2.07. CT scan of the chest showed pulmonary edema and possible pneumonia. ASSESSMENT: 1. Episodes of staring into space with oxygen desaturations requiring a non-rebreather mask. 2. Pulmonary edema due to congestive heart failure and possible pneumonia. 3. Multifactorial gait difficulty due to neuropathy and lumbosacral spinal stenosis. PLAN: 1. EEG. 2. There is concern for complex partial seizures, although it will be very unusual for them to cause this much oxygen desaturation as they do not cause compromise of breathing and generalized shaking. They definitely do not last for 30 - 60 minutes. 3. Continue appropriate management of his primary edema and pneumonia. 4. Antiepileptic medications only if EEG is suggestive of epileptic potential.
[2018-06-28 08:21] LABS: ALBUMIN 2.8 GM/DL (3.2-5.2); BILIRUBIN,TOTAL 0.6 MG/DL (0.2-1.0); C REACTIVE PROTEIN QUANTITATIV 3.19 MG/DL (0.00-0.30); CALCIUM LEVEL 8.7 MG/DL (8.8-10.2); CREATININE FOR GFR 1.88 MG/DL (0.70-1.30); GLOMERULAR FILTRATION RATE 36.4 (>35); MAGNESIUM LEVEL 1.8 MG/DL (1.8-2.4); POTASSIUM SERUM 3.6 MEQ/L (3.5-5.1); TOTAL PROTEIN 6.3 GM/DL (6.4-8.2)
[2018-06-28] MEDS: FUROSEMIDE 40 MG/4 ML VIAL (J1940) IV SCH ×3 (09:00→21:11)
[2018-06-28] MEDS: guaiFENesin ER 600 MG TAB PO SCH ×2 (09:00→21:00)
[2018-06-28] MEDS: OMEPRAZOLE 20 MG CAP PO SCH ×2 (09:00→21:00)
[2018-06-28] MEDS: amLODIPine 5 MG TAB PO SCH ×2 (09:00→21:08)
[2018-06-28] MEDS: METOPROLOL SUCC *XL* 25MG TAB (TopROL *XL*) PO SCH ×2 (09:00→21:09)
[2018-06-28] MEDS: TAMSULOSIN 0.4 MG CAP PO SCH (09:00)
[2018-06-28] MEDS: ALLOPURINOL 100 MG TAB PO SCH (09:00)
[2018-06-28] MEDS: SENOKOT S TAB PO SCH ×2 (09:00→21:00)
[2018-06-28] MEDS ORDERED: VANCOMYCIN INTERMITTENT/PULSE DOSING BY CLINICAL PHARMACIST PER DOSING PROTOCOL XX SCH (09:00)
[2018-06-28] MEDS ORDERED: VANCOMYCIN HCL 1,000 MG, VIAL MATE ADAPTER 1 EACH in D5W 250 ML IV ONE (09:00)
[2018-06-28] MEDS: APIXABAN 2.5 MG TAB (ELIQUIS) PO SCH ×2 (09:00→21:07)
--- NOTE | 2018-06-28 09:39 | PHACANCOPD ---
PHARMACY VANCOMYCIN DOSING Pt Demographics Demographics Patient Age:87 , Weight:64.500 , Gender: male Adjusted Body Weight Date: 06/28/18, Adjusted Body Weight: Kg Events Past 24 Hours Events Past 24 Hours: YES: Elevation in WBC Vancomycin Vancomycin indication: HAP Vancomycin Target Ranges: 15-20 mcg/ml Vancomycin Load Y/N: No Load Dose Date Time Vancomycin Load Dose: Date: Time: Vancomycin Dose Date: 06/28/18. Current Vancomycin Dose: [1g x 1 dose 06/28/18 @0900, followed by intermittent dosing] Intermittent Dosing?: Yes Labs Labs Item Value Date Time White Blood Count 10.3 10^3/uL H 06/28/18 0741 White Blood Count 8.9 10^3/uL 06/27/18 1738 White Blood Count 9.3 10^3/uL 06/27/18 0558 Creatinine 1.73 MG/DL H 06/27/18 0558 Creatinine 1.77 MG/DL H 06/27/18 1738 Creatinine 1.88 MG/DL H 06/28/18 0741 Blood Urea Nitrogen 52 MG/DL H 06/27/18 0558 Blood Urea Nitrogen 50 MG/DL H 06/27/18 1738 Blood Urea Nitrogen 47 MG/DL H 06/28/18 0741 Lactic Acid Level 0.9 MMOL/L 06/27/18 0558 C-Reactive Protein, Quantitative 2.41 MG/DL H 06/27/18 1738 C-Reactive Protein, Quantitative 3.19 MG/DL H 06/28/18 0741 Micro Microbiology 06/19/18 Blood Culture - Final, Complete NO GROWTH AFTER 5 DAYS 06/19/18 Blood Culture - Final, Complete NO GROWTH AFTER 5 DAYS 06/27/18 Gram Stain - Final, Resulted 06/27/18 Sputum Culture, Resulted Pending 06/25/18 Urine Culture - Final, Complete Creatinine Clearance Date:06/28/18. Est Creatinine Clearance: [~19ml/min]. Pending Labs Random level scheduled 06/29/18 @0500 with AM labs Assessment and Plan Maintaining Current Dose?: Yes Reason for dose change: No Dose Change Pharmacist Note Pharmacist Note Date: 06/28/18. Pharmacist note: Day #1 empiric vancomycin dosing initiated with a 1g dose given today followed by intermittent dosing based on random levels for the treatment of HAP - aiming for a goal trough of 15-20mcg/ml. The patient has a PMH of CKD with a scr today of 1.77 with an apparent baseline scr ~1.34. Chest CT from yesterday showed "Differential diagnosis includes active pulmonary process including pneumonia." WBC. CRP, and RR are elevated. Pulse ox is WNL on 4L O2. The patient remains afebrile. Urine and blood cultures were negative. A sputum culture is pending. No PMH of MRSA or vanco use here at [facility]. A random vancomycin level has been scheduled to be drawn 06/29/18 with AM labs. We will continue to monitor and schedule further doses as appropriate. PATSY GOMES [facility] Jun 28, 2018 09:39
--- NOTE | 2018-06-28 11:04 | IPNPDOC ---
Text Note Date of Service The patient was seen on 06/28/18. NOTE Subjective: Pt confused this am, however following commands, moving all ext. Objective: Vitals: (see below) General: No acute distress, laying comfortably in bed HEENT: Moist mucous membranes Neck: No JVD or lymphadenopathy Cardiac: RRR, No murmurs Pulm: Diminished breath sounds at the bases. No wheezing, rhonchi Abd: NT/ND + BS Ext: Trace edema BLE. No cyanosis. Neuro: Strength 5/5 BUE and BLE. CN 2-12 intact. AAOx1 Labs (See below) A/P 1. Altered mental status - ? Delirium, hypoxia, HCAP. ? Seizure, as patient was noted to be 'staring in space'. CT head negative for CVA. Unable to obtain MRI I secondary to PPM. No focal deficits on exam this morning. EEG negative. Neuro checks every 4. 2. Acute hypoxic respiratory failure secondary to Decompensated diastolic heart failure. Lasix IV with close monitoring of I/O. Patient also on noted to have possible infiltrates on CT chest, and started on Zosyn/vanco to cover HCAP. CT with consolidation and ?Partially loculated pleural effusion on Left. Discussed with Dr. Nathan on 05/29 who recommends drainage at this time, Cont abx and observation over the next few days. 3. Urinary retention. Started on Flomax. No back pain. No alarming signs. UA+, On Abx 4. History of severe pulmonary hypertension and right-sided heart failure. 5. CK D stage III. Cranial baseline. Continue to monitor. 6. History of tachybradycardia status post PPM 7. History of atrial fibrillation rate controlled. On Eliquis 8. Hypertension controlled continue current meds. 9. History of GERD and hiatal hernia on PPI. 10. History anemia chronic disease with iron deficiency anemia. On ferrous sulfate. Will need outpatient follow-up. 11. History of gout on allopurinol 12. History of IgG kappa monoclonal gammopathy follows with oncology. Will need outpatient follow-up. 13. ? Right lung mass on chronic atelectasis- follows up with Dr. Madsen outpatient. Discussed with patient who prefers to have further work up outpatient with Dr. Madsen. 14. History of Coumadin coagulopathy and GI bleed from gastric ulcers and gastritis. 15. H/o esophageal stricture status post dilation in July 2017. DVT prophy: Kai Overall prognosis guarded. PT on consult. Discussed with Family at bedside. Full code for now. VS,Fishbone, I+O VS, Fishbone, I+O Laboratory Tests 06/27/18 17:38 Red Blood Count 3.27 L, Mean Corpuscular Volume 94.2, Mean Corpuscular Hemoglobin 29.7, Mean Corpuscular Hemoglobin Concent 31.5 L, Red Cell Distribution Width 16.0 H, Neutrophils (%) (Auto) 79.9 H, Lymphocytes (%) (Auto) 10.0 L, Monocytes (%) (Auto) 8.4 H, Eosinophils (%) (Auto) 0.8, Basophils (%) (A uto) 0.2, Neutrophils # (Auto) 7.1, Lymphocytes # (Auto) 0.9 L, Monocytes # (Auto) 0.8, Eosinophils # (Auto) 0.1, Basophils # (Auto) 0.0, Calcium Level 8.5 L, Aspartate Amino Transf (AST/SGOT) 18, Alanine Aminotransferase (ALT/SGPT) 11 L, Alkaline Phosphatase 83, Total Bilirubin 0.4, Total Protein 6.5, Albumin 2.8 L 06/28/18 07:41 Red Blood Count 3.26 L, Mean Corpuscular Volume 95.4, Mean Corpuscular Hemoglobin 29.8, Mean Corpuscular Hemoglobin Concent 31.2 L, Red Cell Di stribution Width 16.1 H, Neutrophils (%) (Auto) 79.1 H, Lymphocytes (%) (Auto) 8.8 L, Monocytes (%) (Auto) 10.1 H, Eosinophils (%) (Auto) 0.9, Basophils (%) (Auto) 0.3, Neutrophils # (Auto) 8.2 H, Lymphocytes # (Auto) 0.9 L, Monocytes # (Auto) 1.0 H, Eosinophils # (Auto) 0.1, Basophils # (Auto) 0.0, Calcium Level 8.7 L, Aspartate Amino Transf (AST/SGOT) 17, Alanine Aminotransferase (ALT/SGPT) 10 L, Alkaline Phosphatase 85, Total Bilirubin 0.6, Total Protein 6.3 L, Albumin 2.8 L Vital Signs Date Time Temp Pulse Resp B/P (MAP) Pulse Ox O2 Delivery O2 Flow Rate FiO2 12/28/18 09:00 65 131/58 06/28/18 08:00 99.9 24 95 Nasal Cannula 4.0 06/27/18 17:31 40 I&O- Last 24 Hours up to 6 AM 06/28/18 05:59 Intake Total 270 ml Output Total 2070 ml Balance -1800 ml AUDREY LANGE MD Jun 28, 2018 11:04
--- NOTE | 2018-06-28 15:57 | NUR ---
Pt seen this date to assess tolerance of level 2 diet. Pt with open mouth breathing when I arrived. Likely dry oropharynx making swallow more difficult. Pt spouse present and reported that he was eating puree solids at home just prior to admission and that he has history of dilation x2. Spouse also reported that he is not eating much. Recommend: Change solids to puree and continue thin liquids. Will follow up to determine if intake improves with softer diet. Addendum: 06/28/18 at 1600 by RACHAEL GRACE ДМИТРИЙ Amended: Links added.
[2018-06-28 17:25] LABS: BASO % 0.3 % (0.0-1.0); EOS # 0.1 10^3/uL (0.0-0.50); HEMATOCRIT 31.5 % (42.0-52.0); HEMOGLOBIN 9.7 g/dl (13.5-17.5); LYMPH % 8.8 % (24.0-44.0); MEAN CORPUSCULAR HEMOGLOBIN 29.5 pg (27.0-33.0); MEAN CORPUSCULAR HGB CONC 30.8 g/dl (32.0-36.5); MEAN CORPUSCULAR VOLUME 95.7 fl (80.0-96.0); MONO # 1.2 10^3/uL (0.0-0.8); NEUTROPHILS # 9.2 10^3/uL (1.8-7.7); NEUTROPHILS % 79.5 % (36.0-66.0); PLATELET COUNT, AUTOMATED 273 10^3/uL (150-450); RED BLOOD COUNT 3.29 10^6/uL (4.30-6.10); WHITE BLOOD COUNT 11.6 10^3/uL (4.0-10.0)
[2018-06-28 18:05] LABS: CALCIUM LEVEL 8.8 MG/DL (8.8-10.2); CREATININE FOR GFR 1.81 MG/DL (0.70-1.30); MAGNESIUM LEVEL 1.9 MG/DL (1.8-2.4); MB/CK RELATIVE INDEX 3.93 (< OR =4); POTASSIUM SERUM 3.5 MEQ/L (3.5-5.1); TROPONIN I 0.03 NG/ML (< 0.10)
[2018-06-28] MEDS ORDERED: MAG SULF 1GM/100ML (MAG RUN) 1 GM in APPROPRIATE DILUENT 1 EA IV ONE (19:00)
[2018-06-28] MEDS ORDERED: POTASSIUM CHLORIDE 10 MEQ SR TABLET PO ONE ×2 (20:00→21:30)
[2018-06-28] MEDS: PRAVASTATIN 20 MG TAB PO SCH (21:00)
[2018-06-28] MEDS ORDERED: KCL 10MEQ/100ML SWI (KRUN) 10 MEQ in APPROPRIATE DILUENT 1 EA IV ONE (21:15)
[2018-06-29] MEDS: **hydrALAZINE HCL** 25 MG TAB PO SCH ×5 (00:09→23:51)
[2018-06-29 01:32] LABS: APPEARANCE, URINE CLEAR (CLEAR); BACTERIA, URINE AUTO 1+ (NEGATIVE); BILIRUBIN, URINE AUTO NEGATIVE (NEGATIVE); BLOOD, URINE BLOOD 2+ (NEGATIVE); COLOR, URINE YELLOW (YELLOW); GLUCOSE, URINE (UA) AUTO NEGATIVE (NEGATIVE); KETONE, URINE AUTO NEGATIVE (NEGATIVE); LEUKOCYTE ESTERASE, URINE AUTO NEGATIVE (NEGATIVE); MUCUS, URINE SMALL (NEGATIVE); NITRITE, URINE AUTO NEGATIVE (NEGATIVE); PROTEIN, URINE AUTO 2+ mg/dL (NEGATIVE); RBC, URINE AUTO 30 /HPF (0-3); SPECIFIC GRAVITY URINE AUTO 1.009 (1.002-1.035); SQUAMOUS EPITHELIAL CELL UR AU 0 /HPF (0-6); UROBILINOGEN, URINE AUTO 0.2 mg/dL (0.0-2.0); WBC, URINE AUTO 3 /HPF (0-3)
[2018-06-29] MEDS: FUROSEMIDE 40 MG/4 ML VIAL (J1940) IV SCH ×4 (03:56→23:50)
[2018-06-29 04:00] VITALS: BP 150/48
[2018-06-29] MEDS: PIPERACILLIN/TAZOBACTAM SOD 2.25 GM in D5W MINI-BAG PLUS 50 ML IV SCH (04:54)
[2018-06-29 05:10] VITALS: BP 130/48
[2018-06-29 05:24] LABS: BASO % 0.2 % (0.0-1.0); EOS # 0.1 10^3/uL (0.0-0.50); EOS % 0.6 % (0.0-3.0); HEMATOCRIT 31.6 % (42.0-52.0); HEMOGLOBIN 9.7 g/dl (13.5-17.5); LYMPH # 0.8 10^3/uL (1.5-4.5); LYMPH % 6.4 % (24.0-44.0); MEAN CORPUSCULAR HEMOGLOBIN 30.1 pg (27.0-33.0); MEAN CORPUSCULAR HGB CONC 30.7 g/dl (32.0-36.5); MEAN CORPUSCULAR VOLUME 98.1 fl (80.0-96.0); MONO # 1.1 10^3/uL (0.0-0.8); MONO % 8.7 % (0.0-5.0); NEUTROPHILS # 10.9 10^3/uL (1.8-7.7); NEUTROPHILS % 83.6 % (36.0-66.0); PLATELET COUNT, AUTOMATED 286 10^3/uL (150-450); RED BLOOD COUNT 3.22 10^6/uL (4.30-6.10)
[2018-06-29 05:48] LABS: CALCIUM LEVEL 8.9 MG/DL (8.8-10.2); CREATININE FOR GFR 1.91 MG/DL (0.70-1.30); GLOMERULAR FILTRATION RATE 35.7 (>35); POTASSIUM SERUM 3.5 MEQ/L (3.5-5.1); VANCOMYCIN RANDOM 10.8 UG/ML
[2018-06-29] MEDS ORDERED: VANCOMYCIN HCL 750 MG, VIAL MATE ADAPTER 1 EACH in D5W 250 ML IV ONE (07:00)
[2018-06-29 08:00] VITALS: BP 138/58
[2018-06-29 08:29] LABS: C REACTIVE PROTEIN QUANTITATIV 6.68 MG/DL (0.00-0.30); MAGNESIUM LEVEL 2.2 MG/DL (1.8-2.4)
[2018-06-29] MEDS ORDERED: POTASSIUM CHLORIDE 10 MEQ SR TABLET PO ONE (09:00)
[2018-06-29] MEDS: guaiFENesin ER 600 MG TAB PO SCH ×2 (09:08→21:44)
[2018-06-29] MEDS: TAMSULOSIN 0.4 MG CAP PO SCH (09:08)
[2018-06-29] MEDS: SENOKOT S TAB PO SCH ×2 (09:08→21:43)
[2018-06-29] MEDS: METOPROLOL SUCC *XL* 25MG TAB (TopROL *XL*) PO SCH ×2 (09:09→21:43)
[2018-06-29] MEDS: OMEPRAZOLE 20 MG CAP PO SCH ×2 (09:09→21:44)
[2018-06-29] MEDS: APIXABAN 2.5 MG TAB (ELIQUIS) PO SCH ×2 (09:09→21:43)
[2018-06-29] MEDS: amLODIPine 5 MG TAB PO SCH ×2 (09:10→21:43)
[2018-06-29] MEDS: ALLOPURINOL 100 MG TAB PO SCH (09:10)
[2018-06-29] MEDS ORDERED: guaiFENesin ER 600 MG TAB PO ONE (10:00)
[2018-06-29] MEDS: GASTROGRAFIN SOLUTION 30ML PO SCH ×2 (10:20→10:50)
[2018-06-29] MEDS: NYSTATIN 500,000 U/5 ML SUSP UDC SS SCH ×4 (10:28→21:44)
[2018-06-29 12:00] VITALS: BP 125/67
--- NOTE | 2018-06-29 12:06 | REP ---
Clinical: Acute renal insufficiency. Technique: Perdomo scale ultrasound examination using curved array transducer. Findings: Right kidney measures 12.6 x 5.3 x 4.7 cm without hydronephrosis and includes multiple cysts - the largest of which are identified laterally measuring 5.7 x 5.5 x 4.1 cm and within the lower pole measuring 2.7 x 2.5 x 2.6 cm and 2.1 x 1.6 x 1.7 cm. Left kidney measures 8.6 x 3.8 x 4.1 cm and appears mildly atrophic with multiple cysts - the largest of which are identified in the upper pole measuring 2.3 x 2.1 x 2.0 cm and 2.2 x 1.5 x 1.5 cm. Sepulveda catheter in collapsed bladder. Incidental left pleural effusion. Impression: 1. Kidneys demonstrate chronic age-related changes including bilateral cysts. No hydronephrosis. 2. Incidental left pleural effusion. Electronically Signed by Adrian Molina MD 06/29/2018 11:57 A
--- NOTE | 2018-06-29 12:07 | REP ---
Clinical: Altered mental status. Comparison: 06/27/2018 . Findings: Age-related atrophy and microvascular ischemic changes are appreciated. The ventricles and sulci are symmetric. Perdomo-white differentiation is maintained. There is no evidence for acute intracranial hemorrhage, mass/mass effect, pathology or infarction. No extra-axial fluid collection. Calvarium is intact. Paranasal sinuses and mastoid air cells are clear. Impression: Age related atrophy and microvascular ischemic changes. No acute intracranial hemorrhage, infarction, or mass/mass effect. Electronically Signed by Adrian Molina MD 06/29/2018 11:58 A
--- NOTE | 2018-06-29 12:24 | REP ---
Clinical: Persistent cough and leukocytosis. Technique: Axial noncontrast images from the thoracic inlet to the upper abdomen with coronal and sagittal re-formations. Comparison: 06/27/2018. Findings: Comparison to prior examination demonstrates no significant change. Cardiomegaly with findings of pulmonary edema including pulmonary vascular congestion, interstitial edema, perihilar and lower lobe infiltrates along with moderate partially loculated left pleural effusion. Right upper lobe consolidation is also identified and essentially unchanged. Reactive mediastinal and hilar adenopathy noted. No pneumothorax. Pacemaker with leads in the right atrium and right ventricle. Calcified hilar and mediastinal lymph nodes along with stable calcified granulomata consistent with chronic granulomas disease noted. Small amount of contrast identified within the esophagus and stomach. Musculoskeletal structures demonstrate degenerative changes without focal osseous abnormality. Impression: 1. Cardiomegaly with pulmonary edema including perihilar and lower lobe opacities, partially loculated moderate left pleural effusion. Findings are relatively stable compared to 06/27/2018. 2. Right upper lobe consolidation unchanged raising the possibility of aspiration pneumonia. 3. Further chronic changes as noted above. Electronically Signed by Adrian Molina MD 06/29/2018 12:15 P
[2018-06-29] MEDS: MEROPENEM INJ 1 GM in APPROPRIATE DILUENT 1 EA IV SCH ×2 (12:36→23:51)
--- NOTE | 2018-06-29 12:40 | REP ---
Clinical: Persistent leukocytosis. Technique: Axial images from the lung bases to the pubic symphysis using oral contrast material. Coronal and sagittal re-formations obtained. Findings: Hepatic and splenic calcifications consistent with prior granulomas disease. Pancreas, gallbladder, and bilateral adrenal glands are relatively normal for noncontrast evaluation. Left kidney is atrophic and demonstrates multiple hypodensities compatible with cysts measuring up to 22.2 cm. The right kidney is normal in size without perinephric stranding or hydroureteronephrosis and includes multiple cysts including suspected posterior exophytic cyst measuring 5.7 cm. 4 mm nonobstructing right renal calculus identified. The enteric system is without obstruction or acute inflammatory process. Scattered diverticula noted without acute diverticulitis. Pelvis demonstrates Sepulveda catheter in collapsed bladder. No ascites. No free air. No adenopathy. Atherosclerotic changes to the aorta and vasculature without aneurysm. Musculoskeletal structures demonstrate degenerative changes without focal osseous abnormality. Lung bases demonstrate bilateral lower lobe opacities, moderate left pleural effusion, increased interstitial markings consistent with pulmonary edema. Impression: 1. No obvious acute abdominopelvic pathology appreciated. No ascites. No focal inflammatory stranding or adenopathy. 2. Chronic changes include atrophic left kidney, bilateral renal cysts including suspected exophytic right posterior cyst measuring 5.7 cm, 4 mm nonobstructing right renal calculus. 3. Sigmoid diverticula without acute diverticulitis. 4. Evidence of prior granulomatous disease. Electronically Signed by Adrian Molina MD 06/29/2018 12:31 P
--- NOTE | 2018-06-29 14:54 | PHACANCOPD ---
PHARMACY VANCOMYCIN DOSING Pt Demographics Demographics Patient Age:87 , Weight:63.800 , Gender: male Adjusted Body Weight Date: 06/28/18, Adjusted Body Weight: Kg Events Past 24 Hours Events Past 24 Hours: YES: Elevation in WBC; NO: Dialysis, Diuretic Therapy, Change in CrCl, Fever, Pending Diagnostics, Pending Procedures, Other Vancomycin Vancomycin indication: HAP Vancomycin Target Ranges: 15-20 mcg/ml Vancomycin Load Y/N: No Load Dose Date Time Vancomycin Load Dose: Date: Time: Vancomycin Dose Date: 06/29/18. Current Vancomycin Dose: [750mg x1 @0700] Date: 06/28/18. Current Vancomycin Dose: [1g x 1 dose 06/28/18 @0900, followed by intermittent dosing] Intermittent Dosing?: Yes Labs Labs Vital Signs Label Value Date Time Patient Temperature 98.4 degrees F 06/29/18 0800 Temperature Source Temporal 06/29/18 0800 Patient Temperature 97.2 degrees F 06/29/18 1200 Temperature Source Temporal 06/29/18 1200 Item Value Date Time White Blood Count 11.6 10^3/uL H 06/28/18 1713 White Blood Count 13.0 10^3/uL H 06/29/18 0421 C-Reactive Protein, Quantitative 3.19 MG/DL H 06/28/18 0741 C-Reactive Protein, Quantitative 6.68 MG/DL H 06/29/18 0421 Creatinine 1.88 MG/DL H 06/28/18 0741 Creatinine 1.91 MG/DL H 06/29/18 0421 Random Vancomycin Level 10.8 UG/ML 06/29/18 0421 Micro Microbiology 06/29/18 Blood Culture, Received Pending 06/19/18 Blood Culture - Final, Complete NO GROWTH AFTER 5 DAYS 06/19/18 Blood Culture - Final, Complete NO GROWTH AFTER 5 DAYS 06/27/18 Gram Stain - Final, Resulted 06/27/18 Sputum Culture, Resulted Pending 06/25/18 Urine Culture - Final, Complete Creatinine Clearance Date:06/28/18. Est Creatinine Clearance: [~19ml/min]. Pending Labs Random level scheduled 06/29/18 @0500 with AM labs Assessment and Plan Maintaining Current Dose?: Yes Reason for dose change: No Dose Change Pharmacist Note Pharmacist Note 06/29: Patient's random came back at 10.8 this morning. His sputum is still pending. He has a second set of blood cultures pending at this time as well. His WBC is elevated slightly today and his CRP is increasing. He remains afebrile. He also remains on 4L of O2 at this time. His SCR has increased slightly from yesterday to 1.91 therefore he was given a 1 time dose of 750mg of Vancomycin and will remain on intermittent dosing. A random has been scheduled again for tomorrow morning with his morning labs. We will continue to monitor and make adjustments as needed. Date: 06/28/18. Pharmacist note: Day #1 empiric vancomycin dosing initiated with a 1g dose given today followed by intermittent dosing based on random levels for the treatment of HAP - aiming for a goal trough of 15-20mcg/ml. The patient has a PMH of CKD with a scr today of 1.77 with an apparent baseline scr ~1.34. Chest CT from yesterday showed "Differential diagnosis includes active pulmonary process including pneumonia." WBC. CRP, and RR are elevated. Pulse ox is WNL on 4L O2. The patient remains afebrile. Urine and blood cultures were negative. A sputum culture is pending. No PMH of MRSA or vanco use here at [facility]. A random vancomycin level has been scheduled to be drawn 06/29/18 with AM labs. We will continue to monitor and schedule further doses as appropriate. [facility] Jun 29, 2018 14:54
--- NOTE | 2018-06-29 15:07 | IPNPDOC ---
Text Note Date of Service The patient was seen on 06/29/18. NOTE Subjective: Pt more awake and alert today. Appears to produce copious sputum today. No CP/SOB/palpitations. Objective: Vitals: (see below) General: No acute distress, laying comfortably in bed HEENT: Moist mucous membranes. + Thrush Neck: No JVD or lymphadenopathy Cardiac: RRR, No murmurs Pulm: Diminished breath sounds at the bases. No wheezing. +rhonchi Abd: NT/ND + BS Ext: Trace edema BLE. No cyanosis. Neuro: Strength 5/5 BUE and BLE. CN 2-12 intact. AAOx1 Labs (See below) A/P 1.Metabolic encephalopathy 2/[address] head negative for CVA. Unable to obtain MRI I secondary to PPM. No focal deficits on exam this morning. EEG negative. Neuro checks every 4. 2. Acute hypoxic respiratory failure secondary to Decompensated diastolic heart failure. Lasix IV with close monitoring of I/O. More compensated today - decrease dose of lasix. On Zosyn/vanco to cover HCAP. CT with consolidation and ?Partially loculated pleural effusion on Left. Discussed with Dr. Nathan on 05/29 who recommends no drainage at this time, Cont abx and observation over the next few days. 3. Urinary retention. Started on Flomax. No back pain. No alarming signs. UA+, On Abx 4. History of severe pulmonary hypertension and right-sided heart failure. 5. 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 Cranial baseline. Continue to monitor. Nephro consulted. 6. History of tachybradycardia status post PPM 7. History of atrial fibrillation rate controlled. On Eliquis 8. Hypertension controlled continue current meds. 9. History of GERD and hiatal hernia on PPI. 10. History anemia chronic disease with iron deficiency anemia. On ferrous sulfate. Will need outpatient follow-up. 11. History of gout on allopurinol 12. History of IgG kappa monoclonal gammopathy follows with oncology. Will need outpatient follow-up. 13. ? Right lung mass on chronic atelectasis- follows up with Dr. Madsen outpatient. Discussed with patient who prefers to have further work up outpatient with Dr. Madsen. 14. History of Coumadin coagulopathy and GI bleed from gastric ulcers and gastritis. 15. H/o esophageal stricture status post dilation in July 2017. 16. Thrush - started on nystatin. 17. ? Aspiration - NPO for now until pt is more awake. He previously cleared ST. DVT prophy: Suesamuel Overall prognosis guarded. PT on consult. Discussed with Family at bedside. Full code for now. VS,Fishbone, I+O VS, Fishbone, I+O Laboratory Tests 06/28/18 17:13 Red Blood Count 3.29 L, Mean Corpuscular Volume 95.7, Mean Corpuscular Hemoglobin 29.5, Mean Corpuscular Hemoglobin Concent 30.8 L, Red Cell Distribution Width 16.1 H, Neutrophils (%) (Auto) 79.5 H, Lymphocytes (%) (Auto) 8.8 L, Monocytes (%) (Auto) 10.0 H, Eosinophils (%) (Auto) 1.0, Basophils (%) (Auto) 0.3, Neutrophils # (Auto) 9.2 H, Lymphocytes # (Auto) 1.0 L, Monocytes # (Auto) 1.2 H, Eosinophils # (Auto) 0.1, Basophils # (Auto) 0.0, Calcium Level 8.8, Total Creatine Kinase 84 06/29/18 04:21 Red Blood Count 3.22 L, Mean Corpuscular Volume 98.1 H, Mean Corpuscular Hemoglobin 30.1, Mean Corpuscular Hemoglobin Concent 30.7 L, Red Cell Distribution Width 15.9 H, Neutrophils (%) (Auto) 83.6 H, Lymphocytes (%) (Auto) 6.4 L, Monocytes (%) (Auto) 8.7 H, Eosinophils (%) (Auto) 0.6, Basophils (%) (Auto) 0.2, Neutrophils # (Auto) 10.9 H, Lymphocytes # (Auto) 0.8 L, Monocytes # (Auto) 1.1 H, Eosinophils # (Auto) 0.1, Basophils # (Auto) 0.0, Calcium Level 8.9 Vital Signs Date Time Temp Pulse Resp B/P (MAP) Pulse Ox O2 Delivery O2 Flow Rate FiO2 06/29/18 12:00 97.2 58 22 125/67 (86) 98 Nasal Cannula 4.0 06/27/18 17:31 40 I&O- Last 24 Hours up to 6 AM 06/29/18 06:00 Intake Total 1030 ml Output Total 2950 ml Balance -1920 ml AUDREY LANGE MD Jun 29, 2018 15:07
[2018-06-29 16:00] VITALS: BP 144/62
[2018-06-29 20:00] VITALS: BP 128/64
[2018-06-29] MEDS: PRAVASTATIN 20 MG TAB PO SCH (21:44)
[2018-06-30] VITALS: BP 130/60
[2018-06-30 04:00] VITALS: BP 134/61
[2018-06-30] MEDS: **hydrALAZINE HCL** 25 MG TAB PO SCH ×4 (05:51→23:33)
[2018-06-30 08:00] VITALS: BP 143/65
[2018-06-30] MEDS ORDERED: VANCOMYCIN HCL 750 MG, VIAL MATE ADAPTER 1 EACH in D5W 250 ML IV ONE (08:00)
[2018-06-30] MEDS: guaiFENesin ER 600 MG TAB PO SCH ×2 (08:40→20:58)
[2018-06-30] MEDS: APIXABAN 2.5 MG TAB (ELIQUIS) PO SCH ×2 (08:41→20:59)
[2018-06-30] MEDS: TAMSULOSIN 0.4 MG CAP PO SCH (08:41)
[2018-06-30] MEDS: NYSTATIN 500,000 U/5 ML SUSP UDC SS SCH ×4 (08:41→20:59)
[2018-06-30] MEDS: OMEPRAZOLE 20 MG CAP PO SCH ×2 (08:41→20:59)
[2018-06-30] MEDS: SENOKOT S TAB PO SCH ×2 (08:41→20:58)
[2018-06-30] MEDS: FUROSEMIDE 40 MG/4 ML VIAL (J1940) IV SCH ×3 (08:41→23:37)
[2018-06-30] MEDS: ALLOPURINOL 100 MG TAB PO SCH (08:41)
[2018-06-30] MEDS: amLODIPine 5 MG TAB PO SCH ×2 (08:42→20:59)
[2018-06-30] MEDS: METOPROLOL SUCC *XL* 25MG TAB (TopROL *XL*) PO SCH ×2 (08:42→20:58)
[2018-06-30 08:51] LABS: BASO # 0.1 10^3/uL (0.0-0.2); BASO % 0.4 % (0.0-1.0); EOS # 0.2 10^3/uL (0.0-0.50); EOS % 1.7 % (0.0-3.0); HEMATOCRIT 30.8 % (42.0-52.0); HEMOGLOBIN 9.5 g/dl (13.5-17.5); LYMPH # 0.9 10^3/uL (1.5-4.5); LYMPH % 6.8 % (24.0-44.0); MEAN CORPUSCULAR HEMOGLOBIN 30.4 pg (27.0-33.0); MEAN CORPUSCULAR HGB CONC 30.8 g/dl (32.0-36.5); MEAN CORPUSCULAR VOLUME 98.4 fl (80.0-96.0); MONO # 1.1 10^3/uL (0.0-0.8); MONO % 8.1 % (0.0-5.0); NEUTROPHILS # 11.1 10^3/uL (1.8-7.7); NEUTROPHILS % 82.4 % (36.0-66.0); PLATELET COUNT, AUTOMATED 293 10^3/uL (150-450); RED BLOOD COUNT 3.13 10^6/uL (4.30-6.10); WHITE BLOOD COUNT 13.4 10^3/uL (4.0-10.0)
[2018-06-30 10:02] LABS: ALBUMIN 2.7 GM/DL (3.2-5.2); BILIRUBIN,TOTAL 0.5 MG/DL (0.2-1.0); C REACTIVE PROTEIN QUANTITATIV 7.34 MG/DL (0.00-0.30); CALCIUM LEVEL 8.8 MG/DL (8.8-10.2); CREATININE FOR GFR 1.91 MG/DL (0.70-1.30); GLOMERULAR FILTRATION RATE 35.7 (>35); POTASSIUM SERUM 4.1 MEQ/L (3.5-5.1)
--- NOTE | 2018-06-30 11:19 | IPNPDOC ---
Text Note Date of Service The patient was seen on 06/30/18. NOTE Subjective: Pt looks well today. Still has trouble with aspiration. Has a pr oductive cough. No CP/SOB/palpitations. I had an extensive conversation with family at beside regarding his ongoing comorbidities, including aspiration pneumonia, as well as a loculated pleural effusion, which may well need to be drained soon if his symptoms as well as his inflammatory markers don't improve. Have also discussed the need for possible endoscopy if he continues to aspirate given his history of esophageal strictures. Objective: Vitals: (see below) General: No acute distress, laying comfortably in bed HEENT: Moist mucous membranes. + Thrush Neck: No JVD or lymphadenopathy Cardiac: RRR, No murmurs Pulm: Diminished breath sounds at the bases. No wheezing. +rhonchi Abd: NT/ND + BS Ext: Trace edema BLE. No cyanosis. Neuro: Strength 5/5 BUE and BLE. CN 2-12 intact. AAOx1 Labs (See below) A/P 1.Metabolic encephalopathy 2/[address] head negative for CVA. Unable to obtain MRI I secondary to PPM. No focal deficits on exam this morning. EEG negative. Neuro checks every 4. 2. Acute hypoxic respiratory failure secondary to Decompensated diastolic heart failure. Lasix IV with close monitoring of I/O. More compensated today - decrease dose of lasix. On Zosyn/vanco to cover HCAP. CT with consolidation and ?Partially loculated pleural effusion on Left. Discussed with Dr. Nathan on 05/29 who recommends no drainage at this time, Cont abx and observation over the next few days. 3. Urinary retention. Started on Flomax. No back pain. No alarming signs. UA+, On Abx 4. History of severe pulmonary hypertension and right-sided heart failure. 5. 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 Cranial baseline. Continue to monitor. Nephro consulted. 6. History of tachybradycardia status post PPM 7. History of atrial fibrillation rate controlled. On Eliquis 8. Hypertension controlled continue current meds. 9. History of GERD and hiatal hernia on PPI. 10. History anemia chronic disease with iron deficiency anemia. On ferrous sulfate. Will need outpatient follow-up. 11. History of gout on allopurinol 12. History of IgG kappa monoclonal gammopathy follows with oncology. Will need outpatient follow-up. 13. ? Right lung mass on chronic atelectasis- follows up with Dr. Madsen outpatient. Discussed with patient who prefers to have further work up outpatient with Dr. Madsen. 14. History of Coumadin coagulopathy and GI bleed from gastric ulcers and gastritis. 15. H/o esophageal stricture status post dilation in July 2017. 16. Thrush - started on nystatin. 17. Aspiration pneumonia - NPO for now. He previously cleared ST. history of esophageal stricture status post dilation. Discussed with Dr. Jimenez who does not do dilation. 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 We will attempt to return to Dr. Hardin tomorrow. DVT prophy: Eliquis Overall prognosis guarded. PT on consult. Discussed with Family at bedside. Full code for now. VS,Fishbone, I+O VS, Fishbone, I+O Laboratory Tests 06/30/18 04:21 Calcium Level 8.8, Aspartate Amino Transf (AST/SGOT) 19, Alanine Aminotransferase (ALT/SGPT) 10 L, Alkaline Phosphatase 76, Total Bilirubin 0.5, Total Protein 7.0, Albumin 2.7 L 06/30/18 04:24 Red Blood Count 3.13 L, Mean Corpuscular Volume 98.4 H, Mean Corpuscular Hemoglobin 30.4, Mean Corpuscular Hemoglobin Concent 30.8 L, Red Cell Distribution Width 15.9 H, Neutrophils (%) (Auto) 82.4 H, Lymphocytes (%) (Auto) 6.8 L, Monocytes (%) (Auto) 8.1 H, Eosinophils (%) (Auto) 1.7, Basophils (%) (Auto) 0.4, Neutrophils # (Auto) 11.1 H, Lymphocytes # (Auto) 0.9 L, Monocytes # (Auto) 1.1 H, Eosinophils # (Auto) 0.2, Basophils # (Auto) 0.1 Vital Signs Date Time Temp Pulse Resp B/P (MAP) Pulse Ox O2 Delivery O2 Flow Rate FiO2 06/30/18 08:42 90 142/78 06/30/18 08:00 98.5 18 93 Nasal Cannula 4.0 06/27/18 17:31 40 I&O- Last 24 Hours up to 6 AM 06/30/18 06:00 Intake Total 50 ml Output Total 900 ml Balance -850 ml ABED,AUDREY MD Jun 30, 2018 11:19
--- NOTE | 2018-06-30 11:29 | PHACANCOPD ---
PHARMACY VANCOMYCIN DOSING Pt Demographics Demographics Patient Age:87 , Weight:63.800 , Gender: male Adjusted Body Weight Date: 06/28/18, Adjusted Body Weight: Kg Vancomycin Vancomycin indication: HAP Vancomycin Target Ranges: 15-20 mcg/ml Vancomycin Load Y/N: No Load Dose Date Time Vancomycin Load Dose: Date: Time: Vancomycin Dose Date: 06/29/18. Current Vancomycin Dose: [750mg x1 @0700] Date: 06/28/18. Current Vancomycin Dose: [1g x 1 dose 06/28/18 @0900, followed by intermittent dosing] Intermittent Dosing?: Yes Labs Micro Microbiology 06/29/18 Blood Culture - Preliminary, Resulted No growth after 24 hours . All specim... 06/27/18 Gram Stain - Final, Complete 06/27/18 Sputum Culture - Final, Complete Enterobacter Cloacae Complex Sphingomonas Paucimobilis 06/25/18 Urine Culture - Final, Complete Creatinine Clearance Date:06/28/18. Est Creatinine Clearance: [~19ml/min]. Pending Labs Random level scheduled 06/29/18 @0500 with AM labs Assessment and Plan Maintaining Current Dose?: Yes Reason for dose change: No Dose Change Pharmacist Note Pharmacist Note 06/30/18: Random level this morning resulted at 15.9mcg/ml. We will give another 750mg dose this morning and schedule a follow-up random level tomorrow morning as well. Depending on tomorrow's level we may be able to switch the patient from intermittent to Q24H dosing. We will continue to monitor and schedule further dosing accordingly. 06/29: Patient's random came back at 10.8 this morning. His sputum is still pending. He has a second set of blood cultures pending at this time as well. His WBC is elevated slightly today and his CRP is increasing. He remains afebrile. He also remains on 4L of O2 at this time. His SCR has increased slightly from yesterday to 1.91 therefore he was given a 1 time dose of 750mg of Vancomycin and will remain on intermittent dosing. A random has been scheduled again for tomorrow morning with his morning labs. We will continue to monitor and make adjustments as needed. Date: 06/28/18. Pharmacist note: Day #1 empiric vancomycin dosing initiated with a 1g dose given today followed by intermittent dosing based on random levels for the treatment of HAP - aiming for a goal trough of 15-20mcg/ml. The patient has a PMH of CKD with a scr today of 1.77 with an apparent baseline scr ~1.34. Chest CT from yesterday showed "Differential diagnosis includes active pulmonary process including pneumonia." WBC. CRP, and RR are elevated. Pulse ox is WNL on 4L O2. The patient remains afebrile. Urine and blood cultures were negative. A sputum culture is pending. No PMH of MRSA or vanco use here at [facility]. A random vancomycin level has been scheduled to be drawn 06/29/18 with AM labs. We will continue to monitor and schedule further doses as appropriate. [facility] Jun 30, 2018 11:29
--- NOTE | 2018-06-30 11:40 | CR ---
DATE OF CONSULTATION: 06/29/2018 REQUESTING PHYSICIAN: Dr. Jin Paz CONSULTING PHYSICIAN: Dr. Espino REASON FOR CONSULTATION: Management of CHF and volume status in this patient with chronic kidney disease and worsening kidney function. History of was obtained for patient's chart and from medical team, patient himself was unable to provide any reliable history. CHIEF COMPLAINT: Patient presented to the hospital on June 20, 2018 with worsening shortness of breath for almost 2 weeks. HISTORY OF PRESENT ILLNESS: Bryan Lara is a 87-year-old male with past medical history of chronic kidney disease stage 3 with a baseline creatinine of about 1.4 from previous records. He has history of congestive heart failure with preserved ejection fraction, history of atrial fibrillation. Multiple other comorbidities as mentioned below. He presented to the hospital on June 20, 2018 with progressive shortness of breath along with progressive cough and hypoxemia. He was diagnosed with decompensated congestive heart failure admitted under the hospitalist service and started on IV diuretics and placed on fluid restriction. Patient's creatinine on arrival was 1.34, it has bumped up to 1.9 with all the diuresis. At this point patient has a negative fluid balance almost every day. He is almost 7 kg below his admission today. Patient is still in moderate respiratory distress despite all the diuresis that he has received and his creatinine continued to go up so nephrology services called for further help in the management of this patient. I saw and evaluated the patient today morning at the bedside, he was unable to provide any reliable history. He was still in respiratory distress and he has alot of upper airway sections and his nurse also told me that patient was requiring a lot of suctioning of the upper airway and his swallowing was not that good. PAST MEDICAL HISTORY: Chronic kidney disease stage 3, past baseline creatinine between 1.4-1.5, chronic diastolic congestive heart failure, atrial fibrillation, status post pacemaker, history of esophageal stricture and dysphagia requiring dilatation in July 2017, history of gastrointestinal (GI) bleeding in the past, history of lung mass, he follows up with pulmonary service, hypertension, hyperlipidemia, chronic gout secondary to chronic kidney disease, rheumatoid arthritis, coronary artery disease, iron deficiency anemia. PAST SURGICAL HISTORY: History of pacemaker placement status post automatic implantable cardioverter-defibrillator (AICD), status post bilateral knee replacement, status post cataract surgery. ALLERGIES: Patient is allergic PROMETHAZINE. FAMILY HISTORY: No significant family history of end-stage renal disease requiring hemodialysis. SOCIAL HISTORY: No history of illicit drug abuse, smoking, or alcohol abuse. REVIEW OF SYSTEMS: Patient was unable to provide any reliable review of systems to me at this point, however, he is having intermittent cough and a lot of gurgling sounds because of upper airway secretions and he was tachypneic. PHYSICAL EXAMINATION: GENERAL: The patient is awake, alert, oriented times one, sitting up in the bed, in mild respiratory distress, intermittently coughing and having gurgling sounds from the upper airways. VITAL SIGNS: Temperature is 97.2 degrees Fahrenheit, blood pressure 125/56, pulse is 58, respiratory rate of 22, saturating 98% on nasal cannula at 4 liters. INTAKE AND OUTPUT: Urine output recorded as 2.8 liters yesterday, 250 mL so far today since overnight. HEAD AND NECK EXAM: Extraocular muscle intact. Pupils equal, round, and reactive to light. Mucous membranes are moist. NECK: Supple. Mild amount of jugular venous distention (JVD) was noted. CARDIOVASCULAR: S1, S2, tachycardia. Patient has a grade 4/6 systolic murmur which is not radiating to axilla. I could not appreciate the radiation and the carotids because of alot of upper airway sounds and secretions. MUSCULOSKELETAL: No clubbing or stenosis. Pulses are 2+. CENTRAL NERVOUS SYSTEM (NET MENDER): No focal deficit. Power is 5/5 in bilateral upper extremities. Patient follows commands. LABORATORY REVIEW: CBC showed a WBC of 13, hemoglobin is 9.7, platelets of 286. Urine sodium is 96. Urine chloride is 106 and this is under the effect of diuretics. BMP today showed sodium of 144, potassium 3.5, chloride 106, bicarbonate 29, BUN 45, creatinine is 1.9. C reactive protein is 6.6. IMAGING: A CAT scan of the abdomen and pelvis was done today, it showed no obvious acute abdominal pelvic pathology. Chronic atrophic left kidney. Bilateral renal cysts including exophytic cyst in the right side which is 5.7 cm[address] CAT scan of the chest without contrast was done which showed cardiomegaly with pulmonary edema including perihilar and left lower lobe opacities particularly located moderate left pleural effusion. Right upper lobe consolidation unchanged raising the possibility of the aspiration pneumonia. CURRENT INPATIENT MEDICATIONS: Patient's medications are all reviewed by me. He has been started on meropenem 1 gram IV every 12 hours. He is on vancomycin 750 mg IV one dose was given today. He is on nebulizations. Allopurinol 200 mg daily. Amlodipine 5 mg twice a day. Eliquis 2.5 mg by mouth twice a day. Colace one tablets by mouth twice a day. He was on Lasix 40 mg IV every 6 hours, I have decreased it to 40 mg IV every 8 hours. Hydralazine 45 mg by mouth every 6 hours. Metoprolol 25 mg by mouth twice a day. Nystatin swish and swallow. Potassium chloride 40 mEq one dose was given today morning. He is on Pravachol 40 mg at bedtime and Flomax 0.4 mg by mouth daily. ASSESSMENT: 87-year-old male with decompensated congestive heart failure, acute kidney injury superimposed on chronic kidney disease, stage 3, and aspiration pneumonitis. PLAN: 1. Acute kidney injury superimposed on chronic kidney stage 3. Patient is aggressively being diuresed. His baseline creatinine is about 1.4. He is in negative fluid balance for the last many days. Creatinine has bumped up to 1.9. I believe patient's respiratory system at this point are most likely not because of congestive heart failure, I think patient is having recurrent aspirations. I am going to decrease patient's Lasix dose of 40 mg IV every 8 hours instead of every 6 hours. Continue to monitor daily weight and intake and output. 2. Aspiration pneumonitis. Patient is having alot of upper airway secretions, I think patient is having difficult with the swallowing, he needs a barium swallow. Continue the aspiration precautions. I agree with adding vancomycin as well. Continue the meropenem at this point. Patient still has persistent leukocytosis despite being on Zosyn, I think he is persistently having aspirations. 3. 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 Continue current dose of allopurinol at this point. 4. Hypertension with hypertensive heart disease. Continue current dose of amlodipine 5 mg by mouth twice a day, hydralazine 25 mg by mouth every 6 hours, metoprolol 25 mg by mouth twice a day. 5. Chronic atrial fibrillation. Heart rate is controlled, okay to continue current low dose of Eliquis 2.5 mg by mouth twice a day because of his chronic kidney disease and advanced age. Thank you for involving me in the care of this patient. I shall be happy to follow the patient along with you tomorrow morning. Plan of care was already discussed with the hospitalist, Dr. Jin Paz.
[2018-06-30 12:00] VITALS: BP 139/65
[2018-06-30] MEDS: MEROPENEM INJ 1 GM in APPROPRIATE DILUENT 1 EA IV SCH ×2 (13:35→23:37)
[2018-06-30 16:00] VITALS: BP 140/61
[2018-06-30 19:53] VITALS: BP 126/59
[2018-06-30] MEDS: PRAVASTATIN 20 MG TAB PO SCH (20:58)
[2018-07-01] VITALS: BP 110/65
[2018-07-01] MEDS: ALBUTEROL SULFATE 2.5 MG/0.5 ML INH NEB SOLN NEB PRN (00:11)
[2018-07-01 04:00] VITALS: BP 132/67
[2018-07-01 04:58] LABS: BASO # 0.1 10^3/uL (0.0-0.2); BASO % 0.5 % (0.0-1.0); EOS # 0.5 10^3/uL (0.0-0.50); EOS % 3.8 % (0.0-3.0); HEMATOCRIT 30.8 % (42.0-52.0); HEMOGLOBIN 9.4 g/dl (13.5-17.5); LYMPH # 1.2 10^3/uL (1.5-4.5); LYMPH % 8.9 % (24.0-44.0); MEAN CORPUSCULAR HEMOGLOBIN 29.7 pg (27.0-33.0); MEAN CORPUSCULAR HGB CONC 30.5 g/dl (32.0-36.5); MEAN CORPUSCULAR VOLUME 97.5 fl (80.0-96.0); MONO % 7.6 % (0.0-5.0); NEUTROPHILS # 10.1 10^3/uL (1.8-7.7); NEUTROPHILS % 78.7 % (36.0-66.0); PLATELET COUNT, AUTOMATED 300 10^3/uL (150-450); RED BLOOD COUNT 3.16 10^6/uL (4.30-6.10); WHITE BLOOD COUNT 12.9 10^3/uL (4.0-10.0)
[2018-07-01 05:25] LABS: ALBUMIN 2.5 GM/DL (3.2-5.2); BILIRUBIN,TOTAL 0.5 MG/DL (0.2-1.0); C REACTIVE PROTEIN QUANTITATIV 7.5 MG/DL (0.00-0.30); CALCIUM LEVEL 8.4 MG/DL (8.8-10.2); CREATININE FOR GFR 1.88 MG/DL (0.70-1.30); GLOMERULAR FILTRATION RATE 36.4 (>35); MAGNESIUM LEVEL 2.1 MG/DL (1.8-2.4); POTASSIUM SERUM 3.9 MEQ/L (3.5-5.1); TOTAL PROTEIN 6.2 GM/DL (6.4-8.2); VANCOMYCIN RANDOM 18.4 UG/ML
[2018-07-01] MEDS: **hydrALAZINE HCL** 25 MG TAB PO SCH ×2 (06:00→12:00)
[2018-07-01] MEDS ORDERED: DEXTROSE 50% 50 ML SYRINGE IV STA (07:22)
--- NOTE | 2018-07-01 07:50 | PHACANCOPD ---
PHARMACY VANCOMYCIN DOSING Pt Demographics Demographics Patient Age:87 , Weight:64.000 , Gender: male Adjusted Body Weight Date: 06/28/18, Adjusted Body Weight: Kg Events Past 24 Hours Events Past 24 Hours: NO: Dialysis, Diuretic Therapy, Change in CrCl, Fever, Elevation in WBC, Pending Diagnostics, Pending Procedures, Other Vancomycin Vancomycin indication: HAP Vancomycin Target Ranges: 15-20 mcg/ml Vancomycin Load Y/N: No Load Dose Date Time Vancomycin Load Dose: Date: Time: Vancomycin Dose Date: 06/29/18. Current Vancomycin Dose: [750mg x1 @0700] Date: 06/28/18. Current Vancomycin Dose: [1g x 1 dose 06/28/18 @0900, followed by intermittent dosing] Intermittent Dosing?: Yes Labs Labs Vital Signs Label Value Date Time Patient Temperature 98.0 degrees F 07/01/18 0400 Temperature Source Temporal 07/01/18 0400 Patient Temperature 98.5 degrees F 07/01/18 0000 Temperature Source Temporal 07/01/18 0000 Patient Temperature 98.3 degrees F 06/30/18 1953 Temperature Source Temporal 06/30/18 1953 Item Value Date Time White Blood Count 12.9 10^3/uL H 07/01/18 0422 White Blood Count 13.4 10^3/uL H 06/30/18 0424 White Blood Count 13.0 10^3/uL H 06/29/18 0421 Creatinine 1.88 MG/DL H 07/01/18 0422 Creatinine 1.91 MG/DL H 06/30/18 0421 Creatinine 1.91 MG/DL H 06/29/18 0421 Random Vancomycin Level 18.4 UG/ML 07/01/18 0422 Random Vancomycin Level 15.9 UG/ML 06/30/18 0424 Random Vancomycin Level 10.8 UG/ML 06/29/18 0421 Micro Microbiology 06/29/18 Blood Culture - Preliminary, Resulted No growth after 24 hours . All specim... 06/27/18 Gram Stain - Final, Complete 06/27/18 Sputum Culture - Final, Complete Enterobacter Cloacae Complex Sphingomonas Paucimobilis 06/25/18 Urine Culture - Final, Complete Creatinine Clearance Date:06/28/18. Est Creatinine Clearance: [~19ml/min]. Pending Labs Random level scheduled 06/29/18 @0500 with AM labs Assessment and Plan Maintaining Current Dose?: No Reason for dose change: Other Pharmacist Note Pharmacist Note 07/01/18: Random this AM resulted at 18.4mcg/ml. The patient is continuing to accumulate at the dose of 750mg daily. I feel another dose may cause her level to go too high. I have scheduled Vanco 500mg x1 @0900, and another random for tomorrow AM. We will continue to monitor and adjust dose as needed. 06/30/18: Random level this morning resulted at 15.9mcg/ml. We will give another 750mg dose this morning and schedule a follow-up random level tomorrow morning as well. Depending on tomorrow's level we may be able to switch the patient from intermittent to Q24H dosing. We will continue to monitor and schedule further dosing accordingly. 06/29: Patient's random came back at 10.8 this morning. His sputum is still pending. He has a second set of blood cultures pending at this time as well. His WBC is elevated slightly today and his CRP is increasing. He remains afebrile. He also remains on 4L of O2 at this time. His SCR has increased slightly from yesterday to 1.91 therefore he was given a 1 time dose of 750mg of Vancomycin and will remain on intermittent dosing. A random has been scheduled again for tomorrow morning with his morning labs. We will continue to monitor and make adjustments as needed. Date: 06/28/18. Pharmacist note: Day #1 empiric vancomycin dosing initiated with a 1g dose given today followed by intermittent dosing based on random levels for the treatment of HAP - aiming for a goal trough of 15-20mcg/ml. The patient has a PMH of CKD with a scr today of 1.77 with an apparent baseline scr ~1.34. Chest CT from yesterday showed "Differential diagnosis includes active pulmonary process including pneumonia." WBC. CRP, and RR are elevated. Pulse ox is WNL on 4L O2. The patient remains afebrile. Urine and blood cultures were negative. A sputum culture is pending. No PMH of MRSA or vanco use here at [facility]. A random vancomycin level has been scheduled to be drawn 06/29/18 with AM labs. We will continue to monitor and schedule further doses as appropriate. [facility] Jul 01, 2018 07:50
[2018-07-01 08:00] VITALS: BP 119/55
[2018-07-01] MEDS ORDERED: E-Z-PAQUE 96% w/w SUSP 176GM BTL As Ordered ONE (08:43)
[2018-07-01] MEDS ORDERED: E-Z-GAS II EFFERVESCENT PACKET (SODIUM BICARB./CITRIC ACID/SIMETHICONE) As Ordered ONE (08:43)
[2018-07-01] MEDS ORDERED: E-Z-HD 98% w/w 340GM SUSP BTL As Ordered ONE (08:44)
[2018-07-01] MEDS: guaiFENesin ER 600 MG TAB PO SCH ×2 (09:00→09:54)
[2018-07-01] MEDS: APIXABAN 2.5 MG TAB (ELIQUIS) PO SCH ×2 (09:00→09:58)
[2018-07-01] MEDS: amLODIPine 5 MG TAB PO SCH ×2 (09:00→10:03)
[2018-07-01] MEDS: ALLOPURINOL 100 MG TAB PO SCH ×2 (09:00→09:58)
[2018-07-01] MEDS: METOPROLOL SUCC *XL* 25MG TAB (TopROL *XL*) PO SCH ×2 (09:00→09:54)
[2018-07-01] MEDS: OMEPRAZOLE 20 MG CAP PO SCH ×2 (09:00→09:54)
[2018-07-01] MEDS: NYSTATIN 500,000 U/5 ML SUSP UDC SS SCH ×3 (09:00→13:00)
[2018-07-01] MEDS: SENOKOT S TAB PO SCH ×2 (09:00→09:54)
[2018-07-01] MEDS ORDERED: VANCOMYCIN HCL 500 MG in D5W MINI-BAG PLUS 100 ML IV ONE (09:00)
[2018-07-01] MEDS: TAMSULOSIN 0.4 MG CAP PO SCH ×2 (09:00→09:53)
[2018-07-01 12:00] VITALS: BP_SYST 130; BP_DIAS 60; BP_DIAS 69
--- NOTE | 2018-07-01 13:10 | IPNPDOC ---
Text Note Date of Service The patient was seen on 07/01/18. NOTE Subjective: Pt with AMS today. Not swallowing very well, and continues to as pirate. Discussed with , who has made pt DNR/DNI give his poor prognosis. Discussed with Dr. Hardin who will evaluate for EGD. Objective: Vitals: (see below) General: No acute distress, laying comfortably in bed HEENT: Moist mucous membranes. + Thrush Neck: No JVD or lymphadenopathy Cardiac: RRR, No murmurs Pulm: Diminished breath sounds at the bases. No wheezing. +rhonchi Abd: NT/ND + BS Ext: Trace edema BLE. No cyanosis. Neuro: Strength 5/5 BUE and BLE. CN 2-12 intact. Lethargic, easy to arouse Labs (See below) A/P 1.Metabolic encephalopathy 2/[address] head negative for CVA. Unable to obtain MRI I secondary to PPM. No focal deficits on exam this morning. EEG negative. Neuro checks every 4. 2. Acute hypoxic respiratory failure secondary to Decompensated diastolic heart failure. Lasix IV with close monitoring of I/O. More compensated today - decrease dose of lasix. On Zosyn/vanco to cover HCAP. CT with consolidation and ?Partially loculated pleural effusion on Left. Discussed with Dr. Nathan on 05/29 who recommends no drainage at this time, Cont abx and observation over the next few days. 3. Urinary retention. Started on Flomax. No back pain. No alarming signs. UA+, On Abx 4. History of severe pulmonary hypertension and right-sided heart failure. 5. 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 Cranial baseline. Continue to monitor. Nephro consulted. 6. History of tachybradycardia status post PPM 7. History of atrial fibrillation rate controlled. On Eliquis 8. Hypertension controlled continue current meds. 9. History of GERD and hiatal hernia on PPI. 10. History anemia chronic disease with iron deficiency anemia. On ferrous sulfate. Will need outpatient follow-up. 11. History of gout on allopurinol 12. History of IgG kappa monoclonal gammopathy follows with oncology. Will need outpatient follow-up. 13. ? Right lung mass on chronic atelectasis- follows up with Dr. Madsen outpatient. Discussed with patient who prefers to have further work up outpatient with Dr. Madsen. 14. History of Coumadin coagulopathy and GI bleed from gastric ulcers and gastritis. 15. H/o esophageal stricture status post dilation in July 2017. 16. Thrush - started on nystatin. 17. Aspiration pneumonia - NPO for now. He previously cleared ST. history of esophageal stricture status post dilation. Discussed with Dr. Hardin who will eval for EGD. NG tube not placed as pt has a h/o esophageal strictures. DVT prophy: Eliquis Overall prognosis guarded. PT on consult. Had an extensive discussion with at beside. Pt is DNR/DNI VS,Fishbone, I+O VS, Fishbone, I+O Laboratory Tests 07/01/18 04:22 Red Blood Count 3.16 L, Mean Corpuscular Volume 97.5 H, Mean Corpuscular Hemoglobin 29.7, Mean Corpuscular Hemoglobin Concent 30.5 L, Red Cell Distribution Width 15.4 H, Neutrophils (%) (Auto) 78.7 H, Lymphocytes (%) (Auto) 8.9 L, Monocytes (%) (Auto) 7.6 H, Eosinophils (%) (Auto) 3.8 H, Basophils (%) (Auto) 0.5, Neutrophils # (Auto) 10.1 H, Lymphocytes # (Auto) 1.2 L, Monocytes # (Auto) 1.0 H, Eosinophils # (Auto) 0.5, Basophils # (Auto) 0.1, Calcium Level 8.4 L, Aspartate Amino Transf (AST/SGOT) 14, Alanine Aminotransferase (ALT/SGPT) 9 L, Alkaline Phosphatase 76, Total Bilirubin 0.5, Total Protein 6.2 L, Albumin 2.5 L Vital Signs Date Time Temp Pulse Resp B/P (MAP) Pulse Ox O2 Delivery O2 Flow Rate FiO2 07/01/18 12:00 97.9 60 18 130/69 (89) 98 Nasal Cannula 4.0 06/27/18 17:31 40 I&O- Last 24 Hours up to 6 AM 07/01/18 05:59 Intake Total 50 ml Output Total 250 ml Balance -200 ml AUDREY LANGE MD Jul 01, 2018 13:10
[2018-07-01] MEDS ORDERED: D5W 1,000 ML IV SCH (14:00)
[2018-07-01] MEDS ORDERED: HALOPERIDOL 5 MG/ML VIAL (J1630) IV ONE (15:00)
--- NOTE | 2018-07-01 15:19 | REP ---
Clinical: Altered mental status. Comparison: 06/29/2018 . Findings: Age-related atrophy and microvascular ischemic changes are appreciated. The ventricles and sulci are symmetric. Perdomo-white differentiation is maintained. There is no evidence for acute intracranial hemorrhage, mass/mass effect, pathology or infarction. No extra-axial fluid collection. Calvarium is intact. Paranasal sinuses and mastoid air cells are clear. Impression: Age related atrophy and microvascular ischemic changes. No acute intracranial hemorrhage, infarction, or mass/mass effect. Electronically Signed by Adrian Molina MD 07/01/2018 03:11 P
[2018-07-01] MEDS: MEROPENEM INJ 1 GM in APPROPRIATE DILUENT 1 EA IV SCH (15:28)
[2018-07-01 16:00] VITALS: BP 124/58
[2018-07-01] MEDS ORDERED: FUROSEMIDE 40 MG/4 ML VIAL (J1940) As Ordered ONE (18:10)
[2018-07-01] MEDS ORDERED: FUROSEMIDE 40 MG/4 ML VIAL (J1940) IV ONE (18:15)
[2018-07-01 18:17] LABS: ABG BASE EXCESS 1.6 (-2.0-2.0); ABG HCO3 36.9 MEQ/L (22.0-26.0); ABG PARTIAL PRESSURE O2 107.9 mmHg (75.0-100.0); ABG STANDARD HCO3 25.8 MEQ/L (22.0-26.0); ABG TOTAL CO2 42.3 MEQ/L (23.0-31.0)
[2018-07-01 18:20] LABS: ABG pH (ARTERIAL) 6.939 UNITS (7.350-7.450)
[2018-07-01 18:21] LABS: ABG PARTIAL PRESSURE CO2 176.1 mmHg (35.0-45.0); ABG SITE LT BRACHIAL
[2018-07-01] MEDS ORDERED: SCOPOLAMINE 1MG TRANSDERMAL PATCH TOP PRN (18:30)
[2018-07-01] MEDS ORDERED: LORazepam 2 MG/ML VIAL (J2060) IV PRN (18:30)
[2018-07-01] MEDS ORDERED: ONDANSETRON 4MG/2ML VIAL (J2405) IV PRN (18:30)
[2018-07-01] MEDS ORDERED: MORPHINE 4 MG/ML 1ML VIAL/SYRINGE (J2270) IV PRN (18:30)
[2018-07-01 18:44] VITALS: BP 93/51
--- NOTE | 2018-07-01 19:04 | IPNPDOC ---
Text Note Date of Service The patient was seen on 07/01/18. NOTE Rapid called for patient for agonal breathing and decreased mentation. Stat ABG was ordered (along with cbc, bmp. lactic acid and stat CXR) and demonstrated severe hypercapnic respiratory failure; rapid assessment nurses, Dr. Moscoso and Dr. George were at bedside to assist and speak with patients family about making the patient comfortable, the patients opted to make the patient comfort measures only and this was witnessed in front of multiple family members. Discussed with family this would mean no more blood draws or vital checks, they verbalized their understanding and had no questions. The case was discussed at length with Dr. Paz as well. VS,Fishbone, I+O VS, Fishbone, I+O Laboratory Tests 07/01/18 04:22 Red Blood Count 3.16 L, Mean Corpuscular Volume 97.5 H, Mean Corpuscular Hemoglobin 29.7, Mean Corpuscular Hemoglobin Concent 30.5 L, Red Cell Distribution Width 15.4 H, Neutrophils (%) (Auto) 78.7 H, Lymphocytes (%) (Auto) 8.9 L, Monocytes (%) (Auto) 7.6 H, Eosinophils (%) (Auto) 3.8 H, Basophils (%) (Auto) 0.5, Neutrophils # (Auto) 10.1 H, Lymphocytes # (Auto) 1.2 L, Monocytes # (Auto) 1.0 H, Eosinophils # (Auto) 0.5, Basophils # (Auto) 0.1, Calcium Level 8.4 L, Aspartate Amino Transf (AST/SGOT) 14, Alanine Aminotransferase (ALT/SGPT) 9 L, Alkaline Phosphatase 76, Total Bilirubin 0.5, Total Protein 6.2 L, Albumin 2.5 L Vital Signs Date Time Temp Pulse Resp B/P (MAP) Pulse Ox O2 Delivery O2 Flow Rate FiO2 07/01/18 16:00 4.0 07/01/18 16:00 98.2 68 18 124/58 (80) 96 Nasal Cannula 06/27/18 17:31 40 I&O- Last 24 Hours up to 6 AM 07/01/18 06:00 Intake Total 50 ml Output Total 250 ml Balance -200 ml GME ATTESTATION GME ATTESTATION My faculty preceptor for this patient encounter was physically present during the encounter and was fully available. All aspects of the patient interview, examination, medical decision making process, and medical care plan development were reviewed and approved by the faculty preceptor. The faculty preceptor is aware and concurs with the plan as stated in the body of this note and will attest to such by his/her cosignature. ROBSON ANTON DO Jul 01, 2018 19:04
[2018-07-01 19:15] LABS: CALCIUM LEVEL 8.6 MG/DL (8.8-10.2); CREATININE FOR GFR 2.25 MG/DL (0.70-1.30); GLOMERULAR FILTRATION RATE 29.6 (>35); POTASSIUM SERUM 4.3 MEQ/L (3.5-5.1)
[2018-07-01 20:09] LABS: BASO # 0.1 10^3/uL (0.0-0.2); BASO % 0.6 % (0.0-1.0); EOS # 0.5 10^3/uL (0.0-0.50); EOS % 3.1 % (0.0-3.0); HEMATOCRIT 30.8 % (42.0-52.0); HEMOGLOBIN 9.2 g/dl (13.5-17.5); LYMPH # 1.3 10^3/uL (1.5-4.5); MEAN CORPUSCULAR HEMOGLOBIN 31.6 pg (27.0-33.0); MEAN CORPUSCULAR HGB CONC 29.9 g/dl (32.0-36.5); MEAN CORPUSCULAR VOLUME 105.8 fl (80.0-96.0); MONO # 1.3 10^3/uL (0.0-0.8); MONO % 8.2 % (0.0-5.0); NEUTROPHILS # 12.7 10^3/uL (1.8-7.7); NEUTROPHILS % 79.5 % (36.0-66.0); PLATELET COUNT, AUTOMATED 352 10^3/uL (150-450); RED BLOOD COUNT 2.91 10^6/uL (4.30-6.10)
--- NOTE | 2018-07-01 23:30 | IPN ---
DATE OF SERVICE: 06/30/2018 SUBJECTIVE: The patient was seen and examined at the bedside today morning. The patient is afebrile, hemodynamically stable. He reports that he is feeling better today as compared with yesterday. There is no change in the renal function. Creatinine is plateaued at 1.9. He still has a good urine output. OBJECTIVE: Vital signs: Temperature is 98.1 degrees Fahrenheit. Blood pressure 139/65. Pulse is 60. Respiratory rate of 20. Saturating 95% on nasal cannula at 4 liters. Intake and output: Urine output recorded is 1150 mL yesterday, 400 mL so far today since overnight. Weight on the bed scale was 63.8 yesterday. PHYSICAL EXAMINATION: GENERAL: The patient is awake, alert, oriented times one. Sitting up in the bed in no apparent distress. HEAD AND NECK EXAM: Pupils are equally round and reactive to light. Mucous membranes are moist. Neck is supple. There is mildly elevated jugular venous distention (JVD). CARDIOVASCULAR: S1, S2 regular rate. Grade 4/6 systolic ejection murmur. No edema of the bilateral lower extremities. RESPIRATORY: Decreased breath sounds at the bases with mild inspiratory crackles at the bases otherwise no rales or rhonchi. ABDOMEN: Soft, positive bowel sounds. No tenderness. MUSCULOSKELETAL: No clubbing or cyanosis. CENTRAL NERVOUS SYSTEM (GLASS SCULLION): No focal deficits. Power is 5/5 in bilateral upper and lower extremities. LABORATORY REVIEW: Complete blood count (CBC) showed a white blood cell (WBC) of 13.4, hemoglobin is 9.5, platelets of 293. Basic metabolic panel (BMP) showed sodium 146, potassium 4.1, chloride 107, bicarbonate 28, BUN 45, creatinine is 1.9. MICROBIOLOGY: Sputum culture is growing Enterococcus cloacae complex and Sphingomonas paucimobilis. CURRENT INPATIENT MEDICATIONS: The patient's medications were all reviewed by me. He continues to be on: - meropenem - vancomycin - furosemide - his furosemide dose is 40 mg every 8 hours ASSESSMENT AND PLAN: 1. Acute kidney injury superimposed on chronic kidney disease stage III. Most likely secondary to aggressive intravenous (IV) diuresis. Diuretics were decreased yesterday. Creatinine has plateaued at 1.9 now. If renal function does start improving then Lasix dose will be further decreased tomorrow. 2. Aspiration pneumonitis. Recent cultures showed they were not sensitive to Zosyn. Antibiotic has been changed to meropenem. White cell count is improving now. 3. Hypertension with hypertensive heart disease. Continue current dose of amlodipine, hydralazine and metoprolol. 4. Decompensated diastolic congestive heart failure. The patient continues to be on intravenous (IV) Lasix 40 mg IV every 8 hours. Continue to monitor intake and output.
--- NOTE | 2018-07-02 09:51 | IPN ---
DATE: 07/01/2018 Mr. Lara is seen this morning on his bedside. He is poorly communicative, though he is awake but not able to talk much. Nursing staff reports that he has not been able to swallow and remains nothing by mouth (n.p.o.). He is being treated for aspiration pneumonia. On physical examination, temperature 97.8 degrees Fahrenheit, heart rate 62 per minute and respiratory rate 20 per minute. Blood pressure 119/55 mmHg and oxygen saturation 99% on 4 liters of oxygen. Intake and output records from yesterday showed total intake 100 and output 650 mL. His head is atraumatic. Oral mucosa is dry, but without any thrush or ulcers. Neck is supple and no jugular venous distention (JVD) or thyroid enlargement noted. Heart sounds are irregular and lungs with diminished breath sounds and bilateral scattered rhonchi. Abdomen: Soft and nontender. Bowel sounds are normal. Extremities: Without any cyanosis or clubbing. Neurologically, he is awake and able to move all his limbs. He is poorly communicative. Today's labs show WBC count 12.9, hemoglobin 9.4 and hematocrit 30.8. Platelets are 300,000. Sodium 146, potassium 3.9, chloride 108, CO2 of 31, BUN 52 and creatinine 1.88. His glucose was 67 this morning and fingerstick blood sugar 183 after he received intravenous D50. PROBLEMS: 1. Acute renal failure superimposed on chronic kidney disease. No significant change in kidney function. Overall, his kidney function has been essentially unchanged for last 5 days. I feel that the patient is clinically volume depleted and I would not recommend further diuresis. Unfortunately, he is not able to swallow well so we will have to give him some IV fluid. 2. Hypoxemia and cough. Most likely related to aspiration pneumonia and not due to volume overload. I would suggest to continue treating him and contact his family for possible feeding tube placement or further advanced directives. The patient is likely to have recurrent problems with aspiration and in the long-term the patient's family will need to make a decision about his feeding. 3. Hypernatremia, most likely related to volume depletion. I would suggest hydration with D5 and half-normal saline. His blood sugar was somewhat low this morning even though he is not diabetic. He has been n.p.o.. 4. Anemia. At present, his anemia is stable and we will continue to monitor.
--- NOTE | 2018-07-02 12:45 | DS.PDOC ---
Discharge Summary General Date of Admission Jun 19, 2018 at 11:42 Date of Discharge 07.02.17 Discharge Summary PROCEDURES PERFORMED DURING STAY: None Cause of 07.01.18-acute hypoxic and hypercapnic respiratory failure, HCAP and aspiration PNA ADMITTING DIAGNOSES: 1. Congestive heart failure 2. Severe pulmonary hypertension with right sided heart failure 3. Acute hypoxic respiratory failure 4. Chronic kidney disease (CKD) stage III 5. Atrial fibrillation with history of tachybrady syndrome 6. Hypertension 7. Hyperlipidemia 8. Anemia of chronic disease and iron deficiency anemia 9. Gout 10. IgG kappa monoclonal gammopathy. 11. Right lung mass and right upper lobe chronic atelectasis DISCHARGE DIAGNOSES: 1. Metabolic encephalopathy 2. Acute hypoxic respiratory failure secondary to Decompensated diastolic heart failure 3. Urinary retention 4. History of severe pulmonary hypertension and right-sided heart failure. 5. TENZIN on CK D stage III 6. History of tachybradycardia 7. History of atrial fibrillation rate controlled. On Eliquis 8. Hypertension controlled 9. History of GERD and hiatal hernia on PPI 10. History anemia chronic disease with iron deficiency anemia 11. History of gout on allopurinol 12. History of IgG kappa monoclonal gammopathy 13.? Right lung mass on chronic atelectasis 14. History of Coumadin coagulopathy and GI bleed from gastric ulcers and gastritis. 15. H/o esophageal stricture status post dilation in July 2017. 16. Thrush - started on nystatin. 17. Aspiration COMPLICATIONS/CHIEF COMPLAINT: Chf,Hypoxia. HISTORY OF PRESENT ILLNESS: 87 y/o male presented to ED on 06.19.18 with complaint of increasing SOB. HOSPITAL COURSE: The patient had an echocardiogram done in the emergency room which showed severe pulmonary hypertension with right heart failure and cor pulmonale as well as mildly reduced systolic function with an ejection fraction (EF) of 50% to 55% and mild concentric left ventricular hypertrophy. There was also mild mitral regurgitation, severe tricuspid regurgitation. The patient was admitted for acute systolic and diastolic congestive heart failure. He was treated with diuretic therapy while hospitalized. He was also treated for acute hypoxic respiratory failure secondary to CHF exacerbation. The patient did sustain periods in the hospital of decreased mentation/unresponsiveness., CT head was negative for CVA and MRI could not be obtained secondary to PPM. EEG as performed and negative for seizure activity. He was also treated for pneumonia in house. There was also concern for the patient aspiration and aspiration pneumonitis so pt was made NPO during his stay as well. Unfortunately on 07.01.18 the patient had a rapid assessment called for agonal breathing and unresponsiveness/decreased mentation, STAT ABG revealed severe hypercapnic respiratory failure, and family was at bedside and decided to make the patient comfort measures only. Please refer to progress note on rapid assessment for further details. Patient succumbed to his multiple medical comorbidities and that night. LABORATORY DATA: Please see below. IMAGING: CXR 06.19.18 Impression: CHF with interstitial edema and small bilateral pleural effusions. Chronic atelectasis right upper lobe. Pacemaker. CXR 06.27.18 IMPRESSION: CHF pattern. Discoid atelectasis suspected right base. Air bronchograms persist in the left base. No new infiltrate. Head CT 06.27.18 IMPRESSION: 1. There has been no change since 06/19/2016. No acute interval intracranial process is identified. 2. Minimal diffuse atrophy. 3. Minimal right posterior ethmoid sinus disease. Chest CT 06.27.18 Impression: 1. Findings compatible with CHF and pulmonary edema. 2. Differential diagnosis includes active pulmonary process including pneumonia. 3. Extensive atherosclerotic disease. 4. Evidence for chronic granulomatous disease. 5. Renal atrophic changes and bilateral renal hypodensities likely representing cysts but incompletely evaluated by noncontrast chest CT. Renal u/s 06.29.18 Impression: 1. Kidneys demonstrate chronic age-related changes including bilateral cysts. No hydronephrosis. 2. Incidental left pleural effusion. Head CT 06.29.18 Impression: Age related atrophy and microvascular ischemic changes. No acute intracranial hemorrhage, infarction, or mass/mass effect. Chest CT 06.29.18 Impression: 1. Cardiomegaly with pulmonary edema including perihilar and lower lobe opacities, partially loculated moderate left pleural effusion. Findings are relatively stable compared to 06/27/2018. 2. Right upper lobe consolidation unchanged raising the possibility of aspiration pneumonia. 3. Further chronic changes as noted above. Ab/ pelvis CT 06.29.18 Impression: 1. No obvious acute abdominopelvic pathology appreciated. No ascites. No focal inflammatory stranding or adenopathy. 2. Chronic changes include atrophic left kidney, bilateral renal cysts including suspected exophytic right posterior cyst measuring 5.7 cm, 4 mm nonobstructing right renal calculus. 3. Sigmoid diverticula without acute diverticulitis. 4. Evidence of prior granulomatous disease. Head CT 07.01.18 Impression: Age related atrophy and microvascular ischemic changes. No acute intracranial hemorrhage, infarction, or mass/mass effect. TIME SPENT ON DISCHARGE: less than 30 minutes Vital Signs/I&Os Vital Signs Date Time Temp Pulse Resp B/P (MAP) Pulse Ox O2 Delivery O2 Flow Rate FiO2 07/01/18 18:44 60 14 93/51 95 Non-Rebreather 15.0 07/01/18 16:00 98.2 06/27/18 17:31 40 I&O- Last 24 Hours up to 6 AM 07/02/18 06:00 Intake Total 0 ml Output Total 0 ml Balance 0 ml Laboratory Data Labs 24H Laboratory Tests 2 07/01/18 13:13: Bedside Glucose (Misc Panel) 108 07/01/18 18:06: Bedside Glucose (Misc Panel) 159H 07/01/18 18:12: Immature Granulocyte % (Auto) 0.6, White Blood Count 16.0H, Red Blood Count 2.91L, Hemoglobin 9.2L, Hematocrit 30.8L, Mean Corpuscular Volume 105.8H, Mean Corpuscular Hemoglobin 31.6, Mean Corpuscular Hemoglobin Concent 29.9L, Red Cell Distribution Width 16.1H, Platelet Count 352, Neutrophils (%) (Auto) 79.5H, Lymphocytes (%) (Auto) 8.0L, Monocytes (%) (Auto) 8.2H, Eosinophils (%) (Auto) 3.1H, Basophils (%) (Auto) 0.6, Neutrophils # (Auto) 12.7H, Lymphocytes # (Auto) 1.3L, Monocytes # (Auto) 1.3H, Eosinophils # (Auto) 0.5, Basophils # (Auto) 0.1, Nucleated Red Blood Cells % (auto) 0.1H, Anion Gap 4L, Glomerular Filtration Rate 29.6L, Lactic Acid Level 0.7, Blood Urea Nitrogen 53H, Creatinine 2.25H, Sodium Level 146H, Potassium Level 4.3, Chloride Level 106, Carbon Dioxide Level 36H, Calcium Level 8.6L 07/01/18 18:16: Blood Gas Bicarbonate Standard 25.8, Arterial Blood pH 6.939*L, Arterial Blood Partial Pressure CO2 176.1*H, Arterial Blood Partial Pressure O2 107.9H, Arterial Blood Total CO2 42.3H, Arterial Blood HCO3 36.9H, Arterial Blood Base Excess 1.6, Arterial Blood Oxygen Saturation 96.0, Arterial Blood Gas Puncture Site LT BRACHIAL CBC/BMP Laboratory Tests 07/01/18 18:12 Red Blood Count 2.91 L, Mean Corpuscular Volume 105.8 H, Mean Corpuscular Hemoglobin 31.6, Mean Corpuscular Hemoglobin Concent 29.9 L, Red Cell Distribution Width 16.1 H, Neutrophils (%) (Auto) 79.5 H, Lymphocytes (%) (Auto) 8.0 L, Monocytes (%) (Auto) 8.2 H, Eosinophils (%) (Auto) 3.1 H, Basophils (%) (Auto) 0.6, Neutrophils # (Auto) 12.7 H, Lymphocytes # (Auto) 1.3 L, Monocytes # (Auto) 1.3 H, Eosinophils # (Auto) 0.5, Basophils # (Auto) 0.1, Calcium Level 8.6 L FSBS Laboratory Tests Test 07/01/18 13:13 07/01/18 18:06 Range/Units Bedside Glucose (Misc Panel) 108 159 83-110 MG/DL Microbiology Microbiology 06/29/18 Blood Culture - Preliminary, Resulted No Growth after 72 hours. All specime... 06/27/18 Gram Stain - Final, Complete 06/27/18 Sputum Culture - Final, Complete Enterobacter Cloacae Complex Sphingomonas Paucimobilis 06/25/18 Urine Culture - Final, Complete Discharge Medications Scheduled (Prolia) 60 Mg/Ml Evelyn, 60 MG SC ASDIRECTED, (Reported) PATIENT LAST DOSE UNKNOWN (Preservision Areds 2) 1 Cap Cap, 1 CAP PO BID, (Reported) Albuterol Sulfate (Albuterol Sulfate) 2.5 Mg/3 Ml Nebu, 2.5 MG INH BID, (Reported) Allopurinol (Allopurinol) 100 Mg Tab, 200 MG PO DAILY, (Reported) Amlodipine Besylate (Norvasc) 2.5 Mg Tab, 2.5 MG PO BID, (Reported) Apixaban Base (Eliquis) 2.5 Mg Tab, 2.5 MG PO BID, (Reported) Cephalexin Monohydrate (Cephalexin) 500 Mg Cap, 500 MG PO QAM, (Reported) Ferrous Sulfate (Ferrous Sulfate) 325 Mg Tab, 325 MG PO BID, (Reported) Furosemide (Furosemide) 40 Mg Tab, 40 MG PO DAILY, (Reported) Metoprolol Succinate (Metoprolol Succinate ER) 25 Mg Tab, 25 MG PO BID, (Reported) Omeprazole (Omeprazole) 20 Mg Cap, 20 MG PO BID, (Reported) Pravastatin Sodium (Pravachol) 80 Mg Tab, 80 MG PO QHS, (Reported) Scheduled PRN Albuterol Sulfate (Albuterol Sulfate) 2.5 Mg/3 Ml Nebu, 2.5 MG INH Q4H PRN for SOB/COUGH, (Reported) PATIENT USES BID PLUS EVERY 4 HOURS NEEDED Allergies Coded Allergies: Promethazine (Verified Allergy, Sj, JOSE EDUARDO, 06/19/18) GME ATTESTATION GME ATTESTATION My faculty preceptor for this patient encounter was physically present during the encounter and was fully available. All aspects of the patient interview, examination, medical decision making process, and medical care plan development were reviewed and approved by the faculty preceptor. The faculty preceptor is aware and concurs with the plan as stated in the body of this note and will attest to such by his/her cosignature. ROBSON ANTON DO Jul 02, 2018 12:45
--- NOTE | 2018-07-04 16:31 | REP ---
Partial chest x-ray: Three views. Repeat dictation. History: Aspiration pneumonia. Comparison chest CT images are from June 29, 2018. Findings: A multi lead pacemaker is again noted in the enlarged heart via the left side. There is pleuroparenchymal thickening in the right lung apex and upward retraction of the right hilus as seen on the chest CT. There is evidence of left pleural thickening/pleural fluid along the lateral chest wall. Slight blunting of the right lateral pleural angle is observed. Electronically Signed by Jonathon Maravilla MD 07/04/2018 05:12 P
== END 2018-07-01 23:32 | disposition expired | DRG 291 ==
LOC: EDBD 08:45 → M ED 08:45 → M ED INP 11:42 → M PCU 15:05 → M MSPAV 06-22 17:25 → M ICU 06-27 06:43 → M PCU 06-28 23:42
PROVIDERS: ADMIT Internal Medicine Nephrology; ATTEND Internal Medicine
DX: I13.0 Hypertensive heart and chronic kidney disease with heart failure and stage 1 through stage 4 chronic kidney disease, or unspecified chronic kidney disease (principal); G93.41 Metabolic encephalopathy; J96.01 Acute respiratory failure with hypoxia; I50.31 Acute diastolic (congestive) heart failure; J69.0 Pneumonitis due to inhalation of food and vomit; N17.9 Acute kidney failure, unspecified; B37.0 Candidal stomatitis; J98.11 Atelectasis; I48.2 Chronic atrial fibrillation; K21.9 Gastro-esophageal reflux disease without esophagitis; E78.5 Hyperlipidemia, unspecified; I27.20 Pulmonary hypertension, unspecified; Z79.01 Long term (current) use of anticoagulants; K44.9 Diaphragmatic hernia without obstruction or gangrene; M10.30 Gout due to renal impairment, unspecified site; D47.2 Monoclonal gammopathy; I27.81 Cor pulmonale (chronic); I08.1 Rheumatic disorders of both mitral and tricuspid valves; Z51.5 Encounter for palliative care; Z95.0 Presence of cardiac pacemaker; Z79.899 Other long term (current) drug therapy; Z88.8 Allergy status to other drugs, medicaments and biological substances; D50.9 Iron deficiency anemia, unspecified; D63.1 Anemia in chronic kidney disease; M19.90 Unspecified osteoarthritis, unspecified site; R33.9 Retention of urine, unspecified; R91.8 Other nonspecific abnormal finding of lung field; Z96.651 Presence of right artificial knee joint; Z96.652 Presence of left artificial knee joint